=== PATIENT | male | born 1985 | race African-American/Black ===

== ENCOUNTER 2023-12-07 10:44 | Inpatient (IN) | payer BC, OTHER, SELFPAY ==
[2023-12-07 10:51] VITALS: BP 122/76; PULSE 125; RESP 18; TEMP 36.8; O2SAT 91; BMI 25.0
--- NOTE | 2023-12-07 10:56 | XR_ITS ---
Examination: PA single view TECHNIQUE: Upright PA single view Exam date and time: December 07, 2023 1121 hours Comparison August 25, 2021 INDICATIONS: Chest pain today. FINDINGS: Normal heart size No pneumonia or pulmonary edema The osseous structures are intact IMPRESSION: No pneumonia or pulmonary edema
--- NOTE | 2023-12-07 10:58 | PD.EDRME ---
Rapid Medical Screening Exam [facility] Arrival date/time: 12/07/23 10:44 38-year-old male with past medical history of peritoneal dialysis, hypertension, and diabetes presents to the emergency department complaining of abdominal pain for 4 days. Chief Complaint: Abdominal Pain Vital signs: Vital Signs Temperature 98.3 F 12/07/23 10:51 Pulse Rate 125 H 12/07/23 10:51 Respiratory Rate 18 12/07/23 10:51 Blood Pressure 122/76 12/07/23 10:51 Pulse Oximetry (%) 91 L 12/07/23 10:51 Oxygen Delivery Method Room Air 12/07/23 10:51
--- NOTE | 2023-12-07 11:13 | PD.EDABDPN ---
ED Abdominal Pain RME/HPI General Chief Complaint: Abdominal Pain Stated complaint: Dialysis pt., abdominal pain, constipated Time seen by provider: 12/07/23 11:07 Arrival date/time: 12/07/23 10:44 RME / HPI RME / HPI narrative: 12/07/23 10:44 38-year-old male with past medical history of peritoneal dialysis, hypertension, and diabetes presents to the emergency department complaining of abdominal pain for [address] MONTES MAIN ED EVALUATION: 38 year old male with history of ESRD on peritoneal dialysis, type 2 diabetes on insulin, hypertension, hyperlipidemia, GERD presents to the ED for complaint of abdominal pain beginning 4 days ago and progressively worsening. Describes pain as sharp stabbing in sensation that is located throughout, rating as severe. Accompanied by constipation also beginning 4 days ago. Also reports in the last 4 days he has had no fluid output while doing his peritoneal dialysis. Denies fevers, chills, chest pain, cough, shortness of breath, or urinary symptoms. Related Data Home Medications ?Medication ?Instructions ?Recorded ?Confirmed atorvastatin 20 mg tablet 20 mg PO QDAY 08/25/21 08/04/23 vitamin B complex-vitamin C-folic 1 tab PO QDAY 08/25/21 08/04/23 acid 0.8 mg tablet (Nephro-Charly) allopurinol 300 mg tablet 300 mg PO QDAY 08/04/23 08/04/23 ergocalciferol (vitamin D2) 1,250 1,250 mcg PO QWEEK 08/04/23 08/04/23 mcg (50,000 unit) capsule semaglutide 0.25 mg or 0.5 mg (2 0.5 mg subcut QWEEK 08/04/23 08/04/23 mg/3 mL) subcutaneous pen injector (Ozempic) Previous Rx's ?Medication ?Instructions ?Recorded nifedipine 60 mg tablet,extended 60 mg PO QDAY #30 tabs 03/16/20 release benazepril 10 mg tablet 10 mg PO QDAY #30 tabs 08/11/23 blood-glucose meter,continuous #1 ea 08/11/23 (FreeStyle Wei 3 Marion) blood-glucose sensor (FreeStyle #2 ea 08/11/23 Wei 3 Sensor device) carvedilol 12.5 mg tablet 12.5 mg PO BID #60 tabs 08/11/23 hydralazine 50 mg tablet 50 mg PO TID #90 tabs 08/11/23 insulin degludec 100 unit/mL (3 25 unit (0.25 mL) subcut QPM #15 mL 08/11/23 mL) subcutaneous pen (Tresiba FlexTouch U-100 insulin) pen needle, diabetic 29 gauge x #100 ea 08/11/23/ (Pen Needle) semaglutide 0.25 mg or 0.5 mg (2 0.25 mg (0.368 mL) subcut QWEEK #3 08/11/23 mg/3 mL) subcutaneous pen injector mL (Ozempic) Allergies Allergy/AdvReac Type Severity Reaction Status Date / Time No Known Allergies Allergy Verified 08/04/23 17:52 Review of Systems Review of Systems Narrative Review of Systems: Constitutional: DENIES; Fevers Eyes: DENIES; Loss of vision Head/Ear/Nose: DENIES; Loss of hearing Throat: DENIES; Dysphagia Cardiovascular: DENIES; Chest pain, dyspnea or syncope Respiratory: DENIES; Shortness of breath Gastrointestinal: SEE HPI +abd pain, constipation, no fluid output from peritoneal dialysis. DENIES; Rectal bleeding or melena. Genitourinary: DENIES; Dysuria (painful or difficult urination) Musculoskeletal: DENIES; Arthralgia (pain in a joint),; Skin: DENIES; Rash Neurological: DENIES; Loss of function or movement Psychiatric: DENIES; recent major life stressor, emotional problem, illicit drug use or abuse Endocrinology: DENIES; Weight change Hematologic/Lymphatic: DENIES; Abnormal bruising Allergic/Immunologic: DENIES; Urticaria (hives) Past Medical History Past Medical History NEUROLOGIC: Positive Migraine CARDIAC: Positive Cardiac Disorders and Hypertension RESPIRATORY: Positive Asthma and Pneumonia GENITOURINARY: Positive Renal Disease (PD) ENDOCRINE: Positive Endocrine Disorders and Diabetes Mellitus Type 2 PSYCHO/SOCIAL: Positive Depression and Anxiety OTHER HISTORY: Positive Chicken Pox Family History FAMILY HISTORY: Positive Family Respiratory Disorders, Family Cardiac Disorders and Family Cancer Surgical History SURGICAL: Positive Abdominal Surgery (peritoneal dialysis cath) Social History SMOKING STATUS: Never smoker SECOND HAND EXPOSURE: No SUBSTANCE USE: does not use ED Exam Narrative Physical exam: Physical Exam: General: The vital signs were reviewed. The patient is non-toxic, in no apparent distress and appears healthy with a patent airway, no respiratory distress and has no apparent circulatory problems. Head & Scalp: Normocephalic, atraumatic. Face: Appears normal and is without lesions, deformity. Ears: Left external pinna appears normal. Right external pinna appears normal. Eyes: The sclera is anicteric. No obvious photophobia. The Left and Right Orbit/Lid/Conjunctiva appears normal without swelling, discoloration or injection. Nose: The nose is without deformity, discharge or tenderness; Throat: Appears normal. The mucous membranes are pink and moist without exudates, redness or mass seen. The tongue appears normal. Neck: The neck is supple and no apparent mass or adenopathy. Chest: The chest wall is normal in size and symmetry and has no chest wall tenderness or crepitus. The patient displays normal ventilator effort without retractions, accessory muscle use and has adequate air movement bilaterally with no wheezes and no rales. Cardiovascular: Regular rate and rhythm; No murmurs, rubs, or gallops; Gastrointestinal: The abdomen appears normal. No obvious hernias or mass. The abdomen is exquisitely tender and has diffuse tenderness consistent with acute peritonitis. There is guarding. Bowel sounds are present and normal sounding. No CVA tenderness. Genitourinary: Back/Spine: Normal inspection nontender Extremities/Musculoskeletal/lymphatic: The bilateral upper and lower extremities are warm. There is no evidence of arterial insufficiency. There is no evidence of venous insufficiency/edema. The patient spontaneously moves bilateral upper and lower extremities with no pain and no limitation of movement. There is no apparent, injury or trauma. Skin: The skin is warm, dry and intact. No rashes. No petechia. No purpura. No abnormal bruising. The color is appropriate with no cyanosis. Mental status/Psychiatric: Mental status is appropriate for age. The patient has no apparent delusions, visual hallucinations, no apparent audible hallucinations. The patient has no apparent suicidal thoughts/ideation and no apparent homicidal thoughts/ideation. Neurological: The patient is awake, alert, interactive, cordial, cooperative and is oriented to name and situation. The patient follows commands and answers historical question with no impairment. There is no visual disturbance apparent. The pupils are equal and reactive bilaterally with normal eye movements and no diplopia The bilateral upper and lower extremities have normal strength, normal range of motion and normal functioning. The gait, station and balance appear to be baseline with no acute change Course Quality Measures none Orders Category Date Time Status Eye Glass Frame Polisher Q4H START 00 Care 12/07/23 10:57 Active EKG (ED ONLY) *Do not use* NOW Care 12/07/23 10:56 Completed EKG (ED Only) Stat Exams 12/07/23 10:56 Ordered XR chest 2V Stat Exams 12/07/23 10:56 Completed BNP [B-Type Natriuretic Peptide] Stat Lab 12/07/23 11:30 Completed Blood Culture (Lab) Stat Lab 12/07/23 11:32 Received Body Fld Culture & Gram Stain Stat Lab 12/07/23 12:50 Ordered CBC Stat Lab 12/07/23 11:30 Completed Comprehensive Metabolic Panel Stat Lab 12/07/23 11:30 Completed Lactate (Lactic Acid) Stat Lab 12/07/23 11:30 Completed Magnesium Stat Lab 12/07/23 11:30 Completed PT [Prothrombin Time with INR] Stat Lab 12/07/23 11:30 Completed PTT [Partial Thromboplastin Time] Stat Lab 12/07/23 11:30 Completed Peritoneal Cell Cnt/Diff Stat Lab 12/07/23 12:50 Ordered Peritoneal Dialysate Culture Stat Lab 12/07/23 12:50 Ordered Procalcitonin Stat Lab 12/07/23 11:30 Completed Troponin I Stat Lab 12/07/23 11:30 Completed Urinalysis, C/S if Indicated Stat Lab 12/07/23 10:56 Ordered Piper/Tazo 3.375 gm [Zosyn] Med 12/07/23 11:14 Discontinued 3.375 gm in 50 ml IV X1 Vancomycin Inj 1,000 mg Med 12/07/23 11:15 Discontinued Sodium Chloride 0.9% 250 ml [Ns] 250 ml IV X1 Oxygen Delivery NOW RT 12/07/23 10:57 Active Vital Signs Vital signs: Vital Signs Temperature 98.3 F 12/07/23 10:51 Pulse Rate 125 H 12/07/23 10:51 Respiratory Rate 18 12/07/23 10:51 Blood Pressure 122/76 12/07/23 10:51 Pulse Oximetry (%) 91 L 12/07/23 10:51 Oxygen Delivery Method Room Air 12/07/23 10:51 Pulse ox is 91% on room air which is low. Abdominal Pain MDM MDM Narrative MDM Narrative:: IBeverly, am scribing for and in the presence of Dr. Montes. Patient clinically presents with tachycardia and obvious acute bacterial peritonitis. Dr Membreno was called and will be admitting this patient. Because of the obvious clinical presentation Vanco and Zosyn were ordered early. Dr Membreno came by later and ordered intraperitoneal antibiotics. Medical workup came back CBC with a white count of 10.5 hemoglobin 13.1 sodium 134 potassium 4.4 chloride 105 CO2 21.4 creatinine 7.8 BUN 44 consistent with chronic renal failure. Glucose was 240 hemoglobin A1c of 6.3 lactic acid 0.9. Transaminases were negative total bilirubin was 0.3. Troponin was negative BNP was negative no urine was collected he does produce urine but was unable to be collected so far. Dr Membreno came back and saw this patient and ordered. Intraperitoneal antibiotics. Patient is admitted to Dr. Hernandez. Vital signs been stable while in the ER and patient appears to be fairly comfortable Patient data External records reviewed:: [facility] previous records (I reviewed admission from 08/04/2023 through 08/14/2023 ) Clinical information provided by:: patient Social determinants that could affect healthcare access:: none Patient has the following chronic illnesses:: ESRD on peritoneal dialysis, type 2 diabetes on insulin, hypertension, hyperlipidemia, GERD How is presenting disease/condition affected by chronic disease/condition?: exacerbated by Evaluation data The following diagnostics were reviewed and interpreted by me:: lab results, radiology exam(s) and EKG tracing(s) (Sinus tachycardia, rate 114, motion artifact, no STEMI. ) Lab and/or radiology exams considered but not ordered:: None Interpretation Summary: Ordering Physician: Vito Bellamy (FNP) Date of Service: 12/07/23 Procedure(s): XR chest 2V Accession Number(s): [id number] cc: Cheko Geller MD; Vito Bellamy (FNP)~ Examination: PA single view TECHNIQUE: Upright PA single view Exam date and time: December 07, 2023 1121 hours Comparison August 25, 2021 INDICATIONS: Chest pain today. FINDINGS: Normal heart size No pneumonia or pulmonary edema The osseous structures are intact IMPRESSION: No pneumonia or pulmonary edema Dictated By: Cheko Geller MD Signed By: <Electronically signed by Cheko Geller MD in OV> 10/31/24 1142 Medications / Prescriptions Medications or Prescriptions considered but not ordered:: None Medication administrations:: Medication Administration History Acetaminophen (Acetaminophen 325 Mg Tablet) 650 mg PO Q6H PRN PRN Reason: Fever >100.4 or mild pain Stop: 01/06/24 13:23 Dextrose (Dextrose 50%-Water Inj 50 Ml Syringe) 25 ml IV Q15MIN PRN PRN Reason: BG 50-70 responsive npo pt Stop: 01/06/24 13:28 Dextrose (Dextrose 50%-Water Inj 50 Ml Syringe) 50 ml IV Q15MIN PRN PRN Reason: BG <50 OR BG <70 & pt unresponsive Stop: 01/06/24 13:28 Fluconazole (Fluconazole 100 Mg Tablet) 200 mg PO Q48H JANET Stop: 12/14/23 13:44 Last Admin: 12/07/23 14:59 Dose: 200 mg Documented By: OMAR Hydromorphone HCl (Hydromorphone Inj 2 Mg/Ml Vial) 0.5 mg IVP Q3H PRN PRN Reason: BREAKTHROUGH PAIN (SEVERE) Stop: 12/12/23 13:23 Ceftriaxone Sodium/Dextrose (Rocephin/D5w 1gm Iv Premix) 50 mls @ 100 mls/hr IV QDAY [facility] Stop: 12/14/23 13:42 Last Admin: 12/07/23 15:00 Dose: 100 mls/hr Documented By: OMAR Insulin Human Regular (Insulin Hum Regular 1 Unit/0.01 Ml (Per Unit)) 0 unit SC [facility]; Protocol Stop: 01/06/24 16:59 Ondansetron HCl (Ondansetron Inj 2 Mg/Ml Inj 2 Ml) 4 mg IV Q6H PRN; Protocol PRN Reason: NAUSEA OR VOMITING Stop: 01/06/24 13:23 Oxycodone/Acetaminophen (Oxycodone/Apap 5/325 Tablet) 1 tab PO Q6H PRN PRN Reason: PAIN SCALE 4-10(Mod-Sev Stop: 12/12/23 13:23 Pantoprazole Sodium (Pantoprazole 40 Mg Tablet) 40 mg PO QDAY JANET Stop: 01/07/24 08:59 Pharmacy Consult (Pharmacy To Dose Vancomycin) 1 each IV QDAY JANET Stop: 01/07/24 08:59 Sennosides (Senna Tablet) 1 tab PO BID PRN; Protocol PRN Reason: CONSTIPATION Stop: 01/06/24 13:23 Discontinued Medications Piperacillin/Tazobactam/Dextrose (Zosyn) 3.375 gm in 50 mls @ 100 mls/hr IV X1 ONE Stop: 12/07/23 11:43 Last Infusion: 12/07/23 12:42 Dose: Infused Documented By: Admin: 12/07/23 11:53 Dose: 100 mls/hr Documented By: OMAR Vancomycin HCl 1,000 mg/ (Sodium Chloride) 250 mls @ 150 mls/hr IV X1 ONE Stop: 12/07/23 12:54 Last Infusion: 12/07/23 15:07 Dose: Infused Documented By: Admin: 12/07/23 13:01 Dose: 150 mls/hr Documented By: OMAR None Consultations Consultation(s) initiated? 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 Membreno. Discussed patients PMHx, HPI, ED course, exam findings, labs, and radiology results. She accepts the patient for admission. Time: 11:05 Diagnosis Differential diagnosis abdominal pain: abdominal pain, constipation and other (Peritonitis ) Most likely diagnosis given after review of the tests above:: Acute generalized peritonitis Peritoneal dialysis-associated peritonitis ESRF Diabetes Admission Indicated Admission indicated?: indicated Admission Request Was there a request for admission?: Yes Admission Attestation Admission request attestation: Discussed case with [] from Hospitalist service regarding admission. Discussed patients ED course, exam findings, labs, and radiology results. The Hospitalist [agrees,declines] to accept the patient for admission. Disposition Plan Disposition Plan: Admit Discharge Plan Plan Patient Disposition: Admit Acute Care w/in Hospital Disposition Comment: Dr Membreno Problem List Clinical Impression: Acute generalized peritonitis, Peritoneal dialysis-associated peritonitis, ESRF (end stage renal failure), Diabetes
[2023-12-07 11:47] LABS: Lactate (Lactic Acid) 0.9 mMol/L (0.4-2.0)
[2023-12-07 11:50] LABS: Basophils % (Auto) 0 % (0-2.5); Eosinophils # (Auto) 0.2 Thou/mm3 (0.0-0.5); Eosinophils % (Auto) 2 % (0-10); Hematocrit 40.1 % (41.0-53.0); Hemoglobin 13.1 g/dL (13.5-16.0); Immature Granulocytes % (Auto) 1 % (0-0); Immature Granulocytes Auto 0.05 Thou/mm3 (0.00-0.00); Lymphocytes # (Auto) 1.1 Thou/mm3 (1.0-4.8); Lymphocytes % (Auto) 11 % (10-50); Mean Corpuscular HGB Conc 32.7 g/dl (31.0-37.0); Mean Corpuscular Hemoglobin 27.6 pg (25.0-35.0); Mean Corpuscular Volume 85 fL (80-100); Monocytes # (Auto) 0.6 Thou/mm3 (0.0-0.8); Monocytes % (Auto) 6 % (0-12); Neutrophils # (Auto) 8.5 Thou/mm3 (1.8-7.7); Neutrophils % (Auto) 81 % (37-80); Nucleated Red Blood Cell % 0 /100 WBC (0); Platelet Count 383 Thou/mm3 (140-440); RDW Standard Deviation 40.6 fL (35.1-43.9); Red Blood Count 4.74 Miln/mm3 (4.50-5.90); White Blood Count 10.5 Thou/mm3 (3.8-10.6)
[2023-12-07] MEDS: PIPER/TAZO 3.375 GM 3.375 GM/50 ML BAG IV (11:53)
[2023-12-07 12:01] VITALS: RESP 100
[2023-12-07 12:02] VITALS: BP 127/93; PULSE 114; RESP 17; TEMP 37.1; O2SAT 100
[2023-12-07 12:06] LABS: Partial Thromboplastin Time 34.2 Seconds (22.0-36.0); Prothrombin Time 11.1 Seconds (9.0-12.2)
[2023-12-07 12:08] LABS: B-Type Natriuretic Peptide < 20 pg/mL (0-100)
[2023-12-07 12:20] LABS: Alanine Aminotransferase 8 U/L (10-49); Albumin, Serum 4.5 gm/dL (3.5-5.0); Anion Gap 8 (7-16); Aspartate Amino Transferase 12 U/L (0-34); BUN/Creatinine Ratio 6 Ratio (12-20); Bilirubin,Total 0.3 mg/dL (0.3-1.2); Blood Urea Nitrogen 44 mg/dL (9-23); Calcium 9.6 mg/dL (8.3-10.6); Calcium (Corrected) 9.6 mg/dL (8.5-10.1); Carbon Dioxide 21.4 mMol/L (20.0-31.0); Chloride 105 mMol/L (98-107); Creatinine (Component) 7.8 mg/dL (0.6-1.3); Estimated Creatinine Clearance 12.3 mL/min (>60); Glucose 240 mg/dL (74-106); Magnesium 2.3 mg/dL (1.6-2.6); Osmolality,Calculated 287 (275-295); Potassium 4.4 mMol/L (3.4-5.1); Sodium 134 mMol/L (136-145); Total Protein 8.1 gm/dL (5.7-8.2); Troponin I < 0.002 ng/mL (0.0-0.045); eGFR 8 See Note
[2023-12-07 12:21] LABS: Albumin/Globulin Ratio 1.3 (1.2-2.2); Alkaline Phosphatase 57 U/L (46-116); Globulin 3.6 gm/dL (2.3-3.5); Procalcitonin 5.55 ng/ml (0.0-0.49)
[2023-12-07] MEDS: Vancomycin Inj 1,000 MG in SODIUM CHLORIDE 0.9% 250 ML 250 ML 150 MG IV (13:01)
--- NOTE | 2023-12-07 13:32 | XR_ITS ---
Examination: Abdomen AP single view Technique: AP portable supine abdomen, single view Exam date and time: December 07, 2023 1346 hours INDICATIONS: Constipation abdominal pain today. FINDINGS: Nonobstructive bowel gas pattern. Peritoneal dialysis catheter coiled in the central pelvis No free air The osseous structures are demineralized IMPRESSION: Nonobstructive bowel gas pattern
--- NOTE | 2023-12-07 13:44 | PD.RESHP ---
Documentation for date of: 12/07/23 HPI History of Present Illness Chief complaint: Abdominal pain, PD catheter not draining History of present illness: Mr. Velazquez is a 38-year-old male with a ESRD on peritoneal dialysis, HTN, T2DM, HLD who presented to the ED for abdominal pain that started 4 days ago. Abdominal pain is sharp, 10/10 and is diffuse throughout the abdomen. Additionally, patient reports feeling constipated without any relief with lactulose; endorses decreased oral intake along with acid reflux; chills; and also states the catheter has not been draining over this time. He denies any fever, chest pain, shortness of breath, nausea/vomiting/diarrhea or UTI symptoms. Patient still makes urine. In the ED, vitals were significant for tachycardia. CBC unremarkable. CHEM panel significant for ESRD labs with creatinine 7.8, hyperglycemia 240, normal lactic acid, Pro-Oscar 5.55. UA ordered but not sent. Patient received Vanco and Zosyn, and blood cultures were sent. Additionally ordered peritoneal dialysate culture with cell count. Patient will be admitted for PD related peritonitis. PMH: As above PSH: Peritoneal dialysis catheter insertion SH: Denies alcohol/tobacco/illicit drug use. Lives at home with his FH: Noncontributory NKDA Meds: Nifedipine 60 mg daily, atorvastatin 20 mg at bedtime, allopurinol 300 mg daily, Protonix 20 mg daily, sodium bicarb 650 mg tab daily, Ozempic, lactulose, vitamin D, Suyapa-Charly, carvedilol 25 mg twice daily, benazepril 10 mg daily, Tresiba 25 units every afternoon Review of Systems Review of Systems Systems Reviewed: All systems reviewed, normal except as documented Past Medical History Past Medical History NEUROLOGIC: Positive Migraine CARDIAC: Positive Cardiac Disorders and Hypertension RESPIRATORY: Positive Asthma and Pneumonia GENITOURINARY: Positive Renal Disease (PD) ENDOCRINE: Positive Endocrine Disorders and Diabetes Mellitus Type 2 PSYCHO/SOCIAL: Positive Depression and Anxiety OTHER HISTORY: Positive Chicken Pox Family History FAMILY HISTORY: Positive Family Respiratory Disorders, Family Cardiac Disorders and Family Cancer Surgical History SURGICAL: Positive Abdominal Surgery (peritoneal dialysis cath) Social History SMOKING STATUS: Never smoker SECOND HAND EXPOSURE: No SUBSTANCE USE: does not use Exam Vital Signs Temp Pulse Resp BP Pulse Ox O2 Del Method 98.8 F 114 H 17 127/93 H 100 Room Air 12/07/23 12:02 12/07/23 12:02 12/07/23 12:02 12/07/23 12:02 12/07/23 12:02 12/07/23 12:02 Narrative Exam Gen: AAOx3, in mild distress due to pain HEENT: NCAT, PERRLA, EOMI, MMM, no JVD CVS: normal S1, S2. tachycardic, RR. No MRG Resp: CTA B/L. No rhonchi, rales, crackles or wheezing Abd: soft, significant tenderness with auscultation, non-distended. PD catheter noted. BS diminished MSK: Good ROM in BUE & BLE. No edema or rash. Neuro: CN II-XII grossly intact. Strength 5/5 in BUE & BLE. Results: Labs 12/07/23 11:30 12/07/23 11:30 Labs: Short CBC 12/07/23 Range/Units 11:30 WBC 10.5 (3.8-10.6) Thou/mm3 Hgb 13.1 L (13.5-16.0) g/dL Hct 40.1 L (41.0-53.0) % Plt Count 383 (140-440) Thou/mm3 BMP 12/07/23 11:30 Sodium 134 L Potassium 4.4 Chloride 105 Carbon Dioxide 21.4 BUN 44 H Creatinine 7.8 H* Glucose 240 H Calcium 9.6 Cardiac Enzymes 12/07/23 Range/Units 11:30 Troponin I < 0.002 (0.0-0.045) ng/mL Liver Function 12/07/23 Range/Units 11:30 Total Bilirubin 0.3 (0.3-1.2) mg/dL AST 12 (0-34) U/L ALT 8 L (10-49) U/L Alkaline Phosphatase 57 (46-116) U/L Albumin 4.5 (3.5-5.0) gm/dL Quality Measures Quality Measures VTE prophylaxis (SCDs) Medications Home Medications and Allergies Home Medications ?Medication ?Instructions ?Recorded ?Confirmed ?Type atorvastatin 20 mg tablet 20 mg PO QDAY 08/25/21 08/04/23 History vitamin B complex-vitamin C-folic 1 tab PO QDAY 08/25/21 08/04/23 History acid 0.8 mg tablet (Nephro-Charly) allopurinol 300 mg tablet 300 mg PO QDAY 08/04/23 08/04/23 History ergocalciferol (vitamin D2) 1,250 1,250 mcg PO QWEEK 08/04/23 08/04/23 History mcg (50,000 unit) capsule semaglutide 0.25 mg or 0.5 mg (2 0.5 mg subcut QWEEK 08/04/23 08/04/23 History mg/3 mL) subcutaneous pen injector (Ozempic) Allergies Allergy/AdvReac Type Severity Reaction Status Date / Time No Known Allergies Allergy Verified 08/04/23 17:52 Visit Medications Acetaminophen (Acetaminophen 325 Mg Tablet) 650 mg PO Q6H PRN PRN Reason: Fever >100.4 or mild pain Stop: 01/06/24 13:23 Dextrose (Dextrose 50%-Water Inj 50 Ml Syringe) 25 ml IV Q15MIN PRN PRN Reason: BG 50-70 responsive npo pt Stop: 01/06/24 13:28 Dextrose (Dextrose 50%-Water Inj 50 Ml Syringe) 50 ml IV Q15MIN PRN PRN Reason: BG <50 OR BG <70 & pt unresponsive Stop: 01/06/24 13:28 Fluconazole (Fluconazole 100 Mg Tablet) 200 mg PO Q48H JANET Stop: 12/14/23 13:44 Hydromorphone HCl (Hydromorphone Inj 2 Mg/Ml Vial) 0.5 mg IVP Q3H PRN PRN Reason: BREAKTHROUGH PAIN (SEVERE) Stop: 12/12/23 13:23 Ceftriaxone Sodium/Dextrose (Rocephin/D5w 1gm Iv Premix) 50 mls @ 100 mls/hr IV QDAY JANET Stop: 12/14/23 13:42 Insulin Human Regular (Insulin Hum Regular 1 Unit/0.01 Ml (Per Unit)) 0 unit SC [facility]; Protocol Stop: 01/06/24 16:59 Ondansetron HCl (Ondansetron Inj 2 Mg/Ml Inj 2 Ml) 4 mg IV Q6H PRN; Protocol PRN Reason: NAUSEA OR VOMITING Stop: 01/06/24 13:23 Oxycodone/Acetaminophen (Oxycodone/Apap 5/325 Tablet) 1 tab PO Q6H PRN PRN Reason: PAIN SCALE 4-10(Mod-Sev Stop: 12/12/23 13:23 Pantoprazole Sodium (Pantoprazole 40 Mg Tablet) 40 mg PO QDAY JANET Stop: 01/07/24 08:59 Pharmacy Consult (Pharmacy To Dose Vancomycin) 1 each IV QDAY JANET Stop: 01/07/24 08:59 Sennosides (Senna Tablet) 1 tab PO BID PRN; Protocol PRN Reason: CONSTIPATION Stop: 01/06/24 13:23 Discontinued Medications Piperacillin/Tazobactam/Dextrose (Zosyn) 3.375 gm in 50 mls @ 100 mls/hr IV X1 ONE Stop: 12/07/23 11:43 Last Infusion: 12/07/23 12:42 Dose: Infused Vancomycin HCl 1,000 mg/ (Sodium Chloride) 250 mls @ 150 mls/hr IV X1 ONE Stop: 12/07/23 12:54 Last Admin: 12/07/23 13:01 Dose: 150 mls/hr Assessment & Plan Plan Mr. Velazquez is a 38-year-old male with a ESRD on peritoneal dialysis, HTN, T2DM, HLD who presented to the ED for abdominal pain that started 4 days ago. Abdominal pain is sharp, 10/10 and is diffuse throughout the abdomen. Additionally, patient reports the catheter has not been draining over this time. Patient will be admitted for PD related peritonitis and started on empiric antibiotics. #PD related peritonitis Patient presenting with severe abdominal pain and malfunctioning PD catheter. Meets 1/4 SIRS criteria (tachycardia) with normal LA and elevated Pro-Oscar, although in the setting of renal disease Blood cultures were sent Follow-up MRSA nares Ordered dialysis effluent culture/Gram stain with differential General Surgery consulted, appreciate recommendations Patient received vancomycin and Zosyn while in the ED. Will continue with pharmacy to dose vancomycin for GPC/MRSA coverage, and start Rocephin for gram-negative coverage. Fluconazole 200 mg every 48 hr for antifungal prophylaxis, as per ISPD peritonitis guidelines Tylenol for fevers and mild pain; Percocet for moderate?severe pain; Dilaudid for severe breakthrough pain not responding to Percocet #ESRD on PD CHEM panel significant for creatinine 7.8, consistent with ESRD labs Patient still makes urine, therefore strict I's and O's ordered UA ordered May consider placing temporary dialysis catheter for hemodialysis, if PD catheter remains dysfunctional Will resume Suyapa-Charly, sodium bicarb Avoid nephrotoxic agents; renally dose medications when possible #Constipation Patient tried lactulose with minimal relief. KUB pending read Senna as needed; will consider adding MiraLAX and/or enemas #HTN BP is within normal limits at this time Will continue to monitor vital signs and resume home meds when appropriate Nifedipine 60 mg daily, Coreg 25 mg twice daily, benazepril 10 mg daily #T2DM #Hyperglycemia Blood sugar 240 on CHEM panel A1c 6.3% Ordered SSI, hypoglycemic protocol. Consider adding Lantus if FBG >180 #HLD Will continue home atorvastatin #GERD Will continue Protonix Dispo: Patient admitted to [facility] for PD related peritonitis/malfunctioning PD catheter, on IV antibiotics; pending general surgery recommendations GI PPx: Protonix DVT PPx: SCDs Diet: Renal CODE STATUS: Full code Patient seen and care discussed with my attending Dr. Membreno. Riri Givens MD PGY-3 Attending Provider Attestation/Addendum Patient seen and examined with Dr. Givens. Note reviewed, agree with findings and recommendations. Patient admitted with malfunctioning PD catheter, peritonitis. Unfortunately catheter cannot be flushed or drained. Could not get any fluid for cell count. Empirically started him on IV antibiotics. Dr Fischer was notified for pd catheter repositioning.
[2023-12-07 14:03] LABS: Glucose Estimated Average 134 mg/dL (80-131); Hemoglobin A1C 6.3 % Hgb (4.8-6.0)
[2023-12-07] MEDS: FLUCONAZOLE 100 MG TABLET 200 MG PO (14:59)
[2023-12-07] MEDS: cefTRIAXone/D5w 1gm IV premix 50 ML IV (15:00)
[2023-12-07 16:10] VITALS: PULSE 108; RESP 100; RESP 16
--- NOTE | 2023-12-07 16:19 | PC.SS ---
STEAM AND GAS TURBINES ASSEMBLER met with patient to complete initial assessment. Patient appeared alert and oriented. Patient confirmed demographic information. Patient lives at home with spouse, Ella Velazquez . Patient's spouse, Ella was identified as the patient's medical surrogate decision maker. Patient describes independent with ADL's. Patient's PCP is Dr. Deirdre Membreno. Pharmacy of choice is [facility] in [place]. Patient is type II diabetic. Patient states he is currently receiving dialysis at home with own equipment. Foreign Banknote Teller Trader following is Dr. Membreno. The discharge plan was discussed, and the patient would like to return home once medically cleared. Spouse to assist with transportation home. real estate services coordinator to remain available to address any further needs/concerns. Patient currently pending bed for inpatient admission.
[2023-12-07 16:29] LABS: Collection Type, Urine Clean Catch
[2023-12-07 16:43] LABS: Bacteria,Urine Rare; Bilirubin,Urine Negative (Negative); Blood,Urine Trace (Negative); Clarity,Urine Clear (Clear/Hazy); Color,Urine Lt-Yellow (Lt Yel-Yel); Culture Indicated,Urine Not Indicated; Glucose, Urine 3+ (Negative); Ketones,Urine Negative (Negative); Leukocyte Esterase,Urine Negative (Negative); Nitrite,Urine Negative (Negative); Protein,Urine 2+ (Neg - Trace); RBC,Urine < 1 /hpf (0-3); Specific Gravity,Urine 1.012 (1.001-1.035); Squamous Epithelial Cell,Urine < 1 /hpf (0-5); Urobilinogen,Urine Negative mg/dL (0.0-1.0); WBC,Urine 2 /hpf (0-5)
[2023-12-07 17:41] VITALS: BP 121/80; PULSE 110; RESP 16; TEMP 37.6; O2SAT 100
[2023-12-07] MEDS: VIT B12/Vit C/FA (Nephrovite) TABLET 1 TAB PO (17:51)
[2023-12-07] MEDS: INSULIN HUM REGULAR 1 UNIT/0.01 ML (PER UNIT) SC (17:56)
[2023-12-07] MEDS: ATORVASTATIN CALCIUM 20 MG TABLET PO (20:37)
[2023-12-07] MEDS: HYDROmorphone INJ 2 MG/ML VIAL 0.5 MG IVP (20:38)
[2023-12-07] MEDS: SENNA TABLET 1 TAB PO (20:48)
[2023-12-07] MEDS: PANTOPRAZOLE 40 MG TABLET PO (20:48)
[2023-12-07 21:26] VITALS: BMI 24.4
[2023-12-08] VITALS (13 sets, daily range): BP systolic 99–135; BP diastolic 64–103; PULSE 72–115; RESP 13–20; TEMP 36.4–36.9; O2SAT 93–99
[2023-12-08 06:21] LABS: Basophils % (Auto) 1 % (0-2.5); Eosinophils # (Auto) 0.6 Thou/mm3 (0.0-0.5); Eosinophils % (Auto) 9 % (0-10); Hematocrit 34.1 % (41.0-53.0); Hemoglobin 11.2 g/dL (13.5-16.0); Immature Granulocytes % (Auto) 0 % (0-0); Immature Granulocytes Auto 0.02 Thou/mm3 (0.00-0.00); Lymphocytes # (Auto) 1.4 Thou/mm3 (1.0-4.8); Lymphocytes % (Auto) 23 % (10-50); Mean Corpuscular HGB Conc 32.8 g/dl (31.0-37.0); Mean Corpuscular Hemoglobin 27.7 pg (25.0-35.0); Mean Corpuscular Volume 84 fL (80-100); Monocytes # (Auto) 0.5 Thou/mm3 (0.0-0.8); Monocytes % (Auto) 8 % (0-12); Neutrophils # (Auto) 3.7 Thou/mm3 (1.8-7.7); Neutrophils % (Auto) 60 % (37-80); Nucleated Red Blood Cell % 0 /100 WBC (0); Platelet Count 355 Thou/mm3 (140-440); RDW Standard Deviation 40.6 fL (35.1-43.9); Red Blood Count 4.05 Miln/mm3 (4.50-5.90); White Blood Count 6.3 Thou/mm3 (3.8-10.6)
[2023-12-08 06:42] LABS: Albumin, Serum 3.9 gm/dL (3.5-5.0); Anion Gap 11 (7-16); BUN/Creatinine Ratio 6 Ratio (12-20); Blood Urea Nitrogen 40 mg/dL (9-23); Calcium 8.9 mg/dL (8.3-10.6); Carbon Dioxide 17.4 mMol/L (20.0-31.0); Chloride 105 mMol/L (98-107); Creatinine (Component) 7.1 mg/dL (0.6-1.3); Glucose 126 mg/dL (74-106); Osmolality,Calculated 278 (275-295); Phosphorous 4.4 mg/dL (2.4-5.1); Potassium 3.9 mMol/L (3.4-5.1); Sodium 133 mMol/L (136-145); eGFR 9 See Note
[2023-12-08] MEDS: VIT B12/Vit C/FA (Nephrovite) TABLET 1 TAB PO (09:00)
[2023-12-08] MEDS: PANTOPRAZOLE 40 MG TABLET PO (09:00)
[2023-12-08] MEDS: SODIUM BICARBONATE 650 MG TABLET PO (09:00)
[2023-12-08] MEDS: cefTRIAXone/D5w 1gm IV premix 50 ML IV (09:00)
--- NOTE | 2023-12-08 10:05 | CHAP ---
Patient was visited by the Spiritual Care Volunteer who prayed for them. (Volunteer was in the hospital from 09:30-10:05)
--- NOTE | 2023-12-08 12:30 | ESCONSULT_ITS ---
HPI Consult details Consult date: 12/07/23 Reason for consultation narrative: Malfunctioning peritoneal dialysis catheter Requesting physician: Mao Membreno History of present illness: 38-year-old male with history of hypertension, diabetes, end-stage renal disease on peritoneal dialysis. He underwent placement of peritoneal dialysis catheter in August. His catheter has been working until 4 days ago when it stopped draining. After his peritoneal dialysis catheter stopped draining he started developing abdominal pain and constipation. He denies nausea, vomiting, fever or chills. Review of Systems Constitutional Constitutional: Denies chills and Denies fever(s) Cardiovascular Cardiovascular: Denies chest pain Respiratory Respiratory: Denies cough Gastrointestinal Gastrointestinal: Reports abdominal pain, Reports nausea and Denies vomiting Hematologic/Lymphatic Hematologic/Lymphatic: Denies easy bleeding and Denies easy bruising Past Medical History Surgical History OTHER SURGICAL HX: Peritoneal dialysis catheter placement Meds Home Medications and Allergies Home Medications ?Medication ?Instructions ?Recorded ?Confirmed ?Type atorvastatin 20 mg tablet 20 mg PO QDAY 08/25/21 12/08/23 History vitamin B complex-vitamin C-folic 1 tab PO QDAY 08/25/21 08/04/23 History acid 0.8 mg tablet (Nephro-Charly) allopurinol 300 mg tablet 300 mg PO QDAY 08/04/23 08/04/23 History ergocalciferol (vitamin D2) 1,250 1,250 mcg PO QWEEK 08/04/23 08/04/23 History mcg (50,000 unit) capsule semaglutide 0.25 mg or 0.5 mg (2 0.5 mg subcut QWEEK 08/04/23 12/08/23 History mg/3 mL) subcutaneous pen injector (Ozempic) pantoprazole 20 mg tablet,delayed 20 mg PO DAILY 12/08/23 12/08/23 History release sodium bicarbonate 650 mg tablet 650 mg PO DAILY 12/08/23 12/08/23 History vitamin B complex-vitamin C-folic tab 12/08/23 History acid 0.8 mg tablet (Suyapa-Charly) vitamin B complex-vitamin C-folic tab 12/08/23 History acid 0.8 mg tablet (Suyapa-Charly) Allergies Allergy/AdvReac Type Severity Reaction Status Date / Time No Known Allergies Allergy Verified 08/04/23 17:52 Exam Vital Signs Temp Pulse Resp BP Pulse Ox O2 Del Method 98.0 F 105 H 16 116/77 98 Room Air 12/08/23 08:00 12/08/23 08:00 12/08/23 08:00 12/08/23 08:00 12/08/23 08:00 12/08/23 08:00 Constitutional Constitutional: no acute distress Routine Abdominal Exam Abdominal: Present soft and normoactive bowel sounds; Absent tenderness or distended Comments: Peritoneal dialysis catheter in place and intact without external evidence of infection. There is no evidence of peritonitis at this time Results Results: Laboratory Laboratory results: results reviewed Assessment & Plan Problem List (1) Other mechanical complication of intraperitoneal dialysis catheter, initial encounter: Status: Acute Plan Patient does not exhibit signs of peritonitis at this time. Will plan for l aparoscopy with revision of his peritoneal dialysis catheter. I explained to the patient that if there is evidence of purulent fluid in the abdomen or peritonitis I will remove his peritoneal dialysis catheter. He did not may have to undergo hemodialysis in the interim until his peritoneal infection is cleared and then we will reschedule him for placement of peritoneal dialysis catheter at a later time. The risks, benefits and alternatives to surgery discussed with the patient at length and all his questions answered. He voiced understanding and agreed to proceed with the operation. Every 2 weeks and I am a sincere thanks Dr. Membreno for consulting me and allowing me to evaluate participate in care of this patient.
--- NOTE | 2023-12-08 14:21 | ESPR_ITS ---
Documentation for date of: 12/08/23 Subjective Subjective Interval history: Chief complaint: Abdominal pain, PD catheter not draining History of present illness: Mr. Velazquez is a 38-year-old male with a ESRD on peritoneal dialysis, HTN, T2DM, HLD who presented to the ED for abdominal pain that started 4 days ago. Abdominal pain is sharp, 10/10 and is diffuse throughout the abdomen. Additionally, patient reports feeling constipated without any relief with lactulose; endorses decreased oral intake along with acid reflux; chills; and also states the catheter has not been draining over this time. He denies any fever, chest pain, shortness of breath, nausea/vomiting/diarrhea or UTI symptoms. Patient still makes urine. In the ED, vitals were significant for tachycardia. CBC unremarkable. CHEM panel significant for ESRD labs with creatinine 7.8, hyperglycemia 240, normal lactic acid, Pro-Oscar 5.55. UA ordered but not sent. Patient received Vanco and Zosyn, and blood cultures were sent. Additionally ordered peritoneal dialysate culture with cell count. Patient will be admitted for PD related peritonitis. PMH: As above PSH: Peritoneal dialysis catheter insertion SH: Denies alcohol/tobacco/illicit drug use. Lives at home with his FH: Noncontributory NKDA Meds: Nifedipine 60 mg daily, atorvastatin 20 mg at bedtime, allopurinol 300 mg daily, Protonix 20 mg daily, sodium bicarb 650 mg tab daily, Ozempic, lactulose, vitamin D, Suyapa-Charly, carvedilol 25 mg twice daily, benazepril 10 mg daily, Tresiba 25 units every afternoon 12/07: Patient seen resting comfortably in bed. Labs significant for BUN 40 creatinine 7.1, both improved from yesterday. Dr Fischer to fix patient's peritoneal dialysis cath today. Will resume peritoneal dialysis afterwards. Will send PD fluid for cell count. Exam Vital Signs Temp Pulse Resp BP Pulse Ox O2 Del Method 98.5 F 72 16 115/84 93 L Room Air 12/08/23 12:00 12/08/23 12:00 12/08/23 12:00 12/08/23 12:00 12/08/23 12:00 12/08/23 12:00 Narrative Exam PE: Gen: Well-developed and well-nourished. HEENT: NCAT, PERRLA, EOMI, MMM, anicteric conjunctivae. CVS: normal S1 and S2. RRR. No M/R/G. Resp: CTA B/L. No rhonchi, rales, crackles or wheezing. Abd: soft, non-tender, non-distended. MSK: Good ROM in BUE & BLE. No edema or rash. Neuro: CN II-XII grossly intact. Strength 5/5 in BUE & BLE. Alert and oriented x3. Psych: appropriate mood and affect. Objective Labs 12/08/23 05:32 12/08/23 05:32 Labs: Laboratory Results - last 24 hr 12/07/23 12/08/23 16:07 05:32 WBC 6.3 RBC 4.05 L Hgb 11.2 L Hct 34.1 L MCV 84 MCH 27.7 MCHC 32.8 RDW Std Deviation 40.6 Plt Count 355 Neut % (Auto) 60 Lymph % (Auto) 23 [place] % (Auto) 8 Eos % (Auto) 9 Baso % (Auto) 1 Neut # (Auto) 3.7 Lymph # (Auto) 1.4 [place] # (Auto) 0.5 Eos # (Auto) 0.6 H Baso # (Auto) 0.0 Immature Gran # (Auto) 0.02 H Absolute Nucleated RBC 0.00 Immature Gran % 0 Nucleated RBC % 0 Sodium 133 L Potassium 3.9 D Chloride 105 Carbon Dioxide 17.4 L Anion Gap 11 BUN 40 H Creatinine 7.1 H* D Estim Creat Clear Calc 14.0 L eGFR 9 L* BUN/Creatinine Ratio 6 L Glucose 126 H D Calculated Osmolality 278 Calcium 8.9 Corrected Calcium 9.0 Phosphorus 4.4 Albumin 3.9 D Ur Collection Type Clean Catch Urine Color Lt-Yellow Urine Clarity Clear Urine pH 6.0 Ur Specific [place] 1.012 Urine Protein 2+ A Urine Glucose (UA) 3+ A Urine Ketones Negative Urine Blood Trace Urine Nitrite Negative Urine Bilirubin Negative Urine Urobilinogen (Auto) Negative Ur Leukocyte Esterase Negative Urine RBC < 1 Urine WBC 2 Ur Squamous Epith Cells < 1 Urine Bacteria Rare Ur Culture Indicated? Not Indicated Quality Measures Quality Measures VTE prophylaxis (SCDs) Assessment & Plan Assessment Current Active Medications: Generic Name Dose Route Start Last Admin Trade Name Freq PRN Reason Stop Dose Admin Acetaminophen 650 mg 12/07/23 13:24 Acetaminophen 325 Mg Tablet PO 01/06/24 13:23 Q6H PRN Fever >100.4 or mild pain Atorvastatin Calcium 20 mg 12/07/23 21:00 12/07/23 20:37 Atorvastatin Calcium 20 Mg Tablet PO 01/06/24 20:59 20 mg HS JANET Administration Dextrose 25 ml 12/07/23 13:29 Dextrose 50%-Water Inj 50 Ml Syringe IV 01/06/24 13:28 Q15MIN PRN BG 50-70 responsive npo pt Dextrose 50 ml 12/07/23 13:29 Dextrose 50%-Water Inj 50 Ml Syringe IV 01/06/24 13:28 Q15MIN PRN BG <50 OR BG <70 & pt unresponsive Fentanyl Citrate 50 mcg 12/08/23 14:18 Fentanyl Cit Inj 50 Mcg/Ml Amp 2ml IV 12/08/23 16:19 Q5MIN PRN PAIN SCALE 4-10(Mod-Sev Fluconazole 200 mg 12/07/23 13:45 12/07/23 14:59 Fluconazole 100 Mg Tablet PO 12/14/23 13:44 200 mg Q48H JANET Administration Hydralazine HCl 5 mg 12/08/23 14:18 Hydralazine Inj 20 Mg/Ml Vial IV 12/08/23 16:18 Q20MIN PRN SEE COMMENTS Hydromorphone HCl 0.5 mg 12/07/23 13:24 12/07/23 20:38 Hydromorphone Inj 2 Mg/Ml Vial IVP 12/12/23 13:23 0.5 mg Q3H PRN Administration BREAKTHROUGH PAIN (SEVERE) Ceftriaxone Sodium/Dextrose 50 mls @ 100 mls/hr 12/07/23 13:43 12/08/23 09:00 Rocephin/D5w 1gm Iv Premix IV 12/14/23 13:42 100 mls/hr QDAY JANET Administration Insulin Human Regular 0 unit 12/07/23 17:00 12/08/23 11:20 Insulin Hum Regular 1 Unit/0.01 Ml (Per Unit) SC 01/06/24 16:[address] [facility] Protocol Meperidine HCl 12.5 mg 12/08/23 14:18 Meperidine Inj 50 Mg/Ml Vial IV 12/13/23 14:17 Q5M PRN SHIVERING Midazolam HCl 1 mg 12/08/23 14:18 Midazolam Inj 1 Mg/Ml Vial 2 Ml IV 12/09/23 14:17 Q5MIN PRN ANXIETY Ondansetron HCl 4 mg 12/07/23 13:24 Ondansetron Inj 2 Mg/Ml Inj 2 Ml IV 01/06/24 13:23 Q6H PRN NAUSEA OR VOMITING Protocol Oxycodone/Acetaminophen 1 tab 12/07/23 13:24 Oxycodone/Apap 5/325 Tablet PO 12/12/23 13:23 Q6H PRN PAIN SCALE 4-10(Mod-Sev Pantoprazole Sodium 40 mg 12/08/23 09:00 12/08/23 09:00 Pantoprazole 40 Mg Tablet PO 01/07/24 08:59 40 mg QDAY JANET Administration Pharmacy Consult 1 each 12/08/23 09:25 Pharmacy To Dose Vancomycin IV 01/07/24 09:24 QDAY PRN CONSULT Sennosides 1 tab 12/07/23 13:24 12/07/23 20:48 Senna Tablet PO 01/06/24 13:23 1 tab BID PRN Administration CONSTIPATION Protocol Sodium Bicarbonate 650 mg 12/08/23 09:00 12/08/23 09:00 Sodium Bicarbonate 650 Mg Tablet PO 01/07/24 08:59 650 mg QDAY JANET Administration Vitamin B Complex/Vit C/Folic Acid 1 tab 12/07/23 15:45 12/08/23 09:00 Vit B12/Vit C/Fa (Nephrovite) Tablet PO 01/06/24 15:44 1 tab QDAY JANET Administration Plan Mr. Velazquez is a 38-year-old male with a ESRD on peritoneal dialysis, HTN, T2DM, HLD who presented to the ED for abdominal pain that started 4 days ago. Abdominal pain is sharp, 10/10 and is diffuse throughout the abdomen. Additionally, patient reports the catheter has not been draining over this time. Patient will be admitted for PD related peritonitis and started on empiric antibiotics. #??? PD related peritonitis Patient presenting with severe abdominal pain and malfunctioning PD catheter. Meets 1/4 SIRS criteria (tachycardia) with normal LA and elevated Pro-Oscar, although in the setting of renal disease Blood cultures were sent Follow-up MRSA nares Ordered dialysis effluent culture/Gram stain with differential General Surgery consulted, appreciate recommendations Patient received vancomycin and Zosyn while in the ED. Will continue with pharmacy to dose vancomycin for GPC/MRSA coverage, and start Rocephin for gram- negative coverage. Fluconazole 200 mg every 48 hr for antifungal prophylaxis, as per ISPD peritonitis guidelines Tylenol for fevers and mild pain; Percocet for moderate?severe pain; Dilaudid for severe breakthrough pain not responding to Percocet #ESRD on PD//malfunctioning peritoneal dialysis catheter CHEM panel significant for creatinine 7.8, consistent with ESRD labs Patient still makes urine, therefore strict I's and O's ordered UA ordered Will resume Suyapa-Charly, sodium bicarb Avoid nephrotoxic agents; renally dose medications when possible PD cath to be replaced today, resume peritoneal dialysis afterwards Peritoneal fluid cell count with differential #Constipation Patient tried lactulose with minimal relief. KUB pending read Senna as needed; will consider adding MiraLAX and/or enemas #HTN BP is within normal limits at this time Will continue to monitor vital signs and resume home meds when appropriate Nifedipine 60 mg daily, Coreg 25 mg twice daily, benazepril 10 mg daily #T2DM #Hyperglycemia Blood sugar 240 on CHEM panel A1c 6.3% Ordered SSI, hypoglycemic protocol. Consider adding Lantus if FBG >180 #HLD Will continue home atorvastatin #GERD Will continue Protonix Dispo: Patient admitted to [facility] for PD related peritonitis/malfunctioning PD catheter, on IV antibiotics; will have PD cath replaced today GI PPx: Protonix DVT PPx: SCDs Diet: Renal CODE STATUS: Full code Plan of care discussed with my attending Dr. Membreno. Kirit Olmstead MD PGY-1 Attending Provider Attestation/Addendum Patient seen and examined with resident physician Dr. Olmstead. Note reviewed, agree with findings and recommendations. Today abdominal pain much better. White count normal. Dr Fischer did not think patient has PD peritonitis. He changed the PD catheter and peritoneal fluid was clear. He sent PD fluid peritoneal fluid for cell count. In the interim we will continue with antibiotics. CCPD 4 exchanges 1.5% 2 L with a dry abdomen tonight-
--- NOTE | 2023-12-08 14:30 | PD.SUROPNT ---
Date of Procedure 12/08/23 Pre Op Diagnosis Mechanical complication of peritoneal dialysis catheter Post Op Diagnosis Mechanical complication of peritoneal dialysis catheter Procedure Laparoscopy with revision of peritoneal dialysis catheter Findings There was no evidence of peritonitis or purulent fluid. The catheter was wrapped around with loops of small bowel and there were obstructive intraluminal material at the distal tip of the peritoneal dialysis catheter. Procedure Description Patient brought into the operating room in supine position. After administration of general tracheal anesthesia, patient's abdomen and his peritoneal dialysis catheter were prepped and draped in standard surgical manner. A Veress needle was inserted through the umbilicus and pneumoperitoneum was obtained up to 15 mmHg. The Veress needle was removed and a 5 mm right upper quadrant incision was made. 5 mm trocar was placed and laparoscopic camera was inserted. Under direct visualization a laparoscopic camera a 5 mm trocar was placed in left lower quadrant and additional 5 mm trocar was placed in left epigastrium. The abdomen was inspected there was some fluid throughout the abdomen that did not appear to be purulent and there was no evidence of peritonitis. The fluid was aspirated and sent for culture and sensitivity. The remainder of the abdomen was washed and irrigated. The catheter was identified and noted to be wrapped around the loop of small bowel. It was from the loop of small bowel. There were some evidence of obstructive intraluminal material at the distal end of the peritoneal dialysis catheter. A guidewire was placed at the external part of the catheter and advanced until all the obstructive intraluminal materials were removed. The catheter was then flushed with heparinized saline. The catheter was positioned in the pelvis. Using Endo closure device a suture was placed in suprapubic region around the catheter to hold the catheter in place and prevent potential displacement. Hemostasis was adequate and satisfactory. Instrument and laparoscopic camera removed, pneumoperitoneum was evacuated and trocars removed. Incisions closed with 4-0 Monocryl in subcuticular fashion. Dermabond applied. Patient tolerated procedure well. He was extubated, breathing spontaneously and without difficulty and was transferred to postanesthesia care in stable condition. Instruments, needles and sponge counts were reported to be correct x 2. Anesthesia GETA and local Pathology / specimen Other (Peritoneal fluid for culture and sensitivity) Estimated Blood Loss 2 Condition Stable Disposition PACU Surgeon Dane Fischer MD Surgical Staff Operation Date: 12/08/23 15:00 Case Staff Anesthesiologist: Krishan Carreno RNhotel valet attendant: Maryjane Clarke
--- NOTE | 2023-12-08 14:36 | SUR.PHASEI ---
1435 Patient arrived to recovery resting comfortably in [facility], drowsy and talking with staff, on oxygen 4L via nasal cannula, breathing unlabored, vital signs stable, denies pain, dressing intact to abdomen; dermabond x4 and peritoneal catheter: drain sponge, medipore tape, no bleeding noted, lung sounds clear upon auscultation, bilateral radial pulses present when palpated, report received from Brad HARRIS and Dr. Carreno
--- NOTE | 2023-12-08 15:17 | SUR.PHASEI ---
1514 Report given to Ashley HARRIS, patient meets discharge criteria from recovery, awake and alert, breathing unlabored, vital signs stable, denies pain, states, It's just sore , patient eating ice chips, tolerating well 1517 Patient transported via gurney to room 377 without incident, patient at bedside awaiting for patient, patient able to ambulate from rcamas to bed with stand by assist from this scientific technical writer, Jessica HARRIS promptly in patient room, patient sitting comfortably in bed with call light in reach when this scientific technical writer left patients room
[2023-12-08] MEDS: oxyCODONE/APAP 5/325 TABLET 1 TAB PO (16:28)
[2023-12-08] MEDS: INSULIN HUM REGULAR 1 UNIT/0.01 ML (PER UNIT) SC ×2 (17:34→21:17)
--- NOTE | 2023-12-08 19:20 | PC.NURSE ---
SERG,DIALYSIS NURSE CONTACTED THROUGH PHONE THAT PATIENT PERITONEAL DIALYSIS IS BEEPING SINCE DAY SHIFT.ESRG INSTRUCTED TO PRESS STOPPED AND PUSH ARROW DOWN AND PRESS STOPPED AND GO.THEN TURN OFF.EXPLAINED TO PATIENT THAT IT NEEDS TO TURN OFF.DIALYSIS NURSE PROMISED TO COME IN AM.PATIENT VERBALIZES UNDERSTANDING.
[2023-12-08] MEDS: DOCUSATE SOD 100 MG CAPSULE PO (20:16)
[2023-12-08] MEDS: ATORVASTATIN CALCIUM 20 MG TABLET PO (20:16)
[2023-12-08] MEDS: NA SU/NAHCO3/KC/PEG (Golytely) 4,000 ML BTL 2000 ML PO (20:56)
[2023-12-09] VITALS: BP 133/103; PULSE 107; RESP 18; TEMP 36.8; O2SAT 99
[2023-12-09 00:19] VITALS: PULSE 100; RESP 16; RESP 93
[2023-12-09 04:00] VITALS: BP 147/97; PULSE 96; RESP 20; TEMP 36.6; O2SAT 99
[2023-12-09 06:07] LABS: Basophils % (Auto) 0 % (0-2.5); Eosinophils % (Auto) 0 % (0-10); Hematocrit 34.7 % (41.0-53.0); Hemoglobin 11.6 g/dL (13.5-16.0); Immature Granulocytes % (Auto) 0 % (0-0); Immature Granulocytes Auto 0.03 Thou/mm3 (0.00-0.00); Lymphocytes # (Auto) 0.7 Thou/mm3 (1.0-4.8); Lymphocytes % (Auto) 8 % (10-50); Mean Corpuscular HGB Conc 33.4 g/dl (31.0-37.0); Mean Corpuscular Hemoglobin 27.8 pg (25.0-35.0); Mean Corpuscular Volume 83 fL (80-100); Monocytes # (Auto) 0.3 Thou/mm3 (0.0-0.8); Monocytes % (Auto) 3 % (0-12); Neutrophils # (Auto) 8.3 Thou/mm3 (1.8-7.7); Neutrophils % (Auto) 89 % (37-80); Nucleated Red Blood Cell % 0 /100 WBC (0); Platelet Count 378 Thou/mm3 (140-440); RDW Standard Deviation 38.8 fL (35.1-43.9); Red Blood Count 4.18 Miln/mm3 (4.50-5.90); White Blood Count 9.3 Thou/mm3 (3.8-10.6)
[2023-12-09 06:43] LABS: Anion Gap 11 (7-16); BUN/Creatinine Ratio 6 Ratio (12-20); Blood Urea Nitrogen 39 mg/dL (9-23); Calcium 8.7 mg/dL (8.3-10.6); Calcium (Corrected) 8.7 mg/dL (8.5-10.1); Carbon Dioxide 17.4 mMol/L (20.0-31.0); Chloride 100 mMol/L (98-107); Creatinine (Component) 6.3 mg/dL (0.6-1.3); Estimated Creatinine Clearance 15.7 mL/min (>60); Glucose 232 mg/dL (74-106); Osmolality,Calculated 273 (275-295); Phosphorous 4.8 mg/dL (2.4-5.1); Potassium 4.5 mMol/L (3.4-5.1); Sodium 128 mMol/L (136-145); eGFR 11 See Note
[2023-12-09 07:54] VITALS: PULSE 97; RESP 17; RESP 95
[2023-12-09 08:00] VITALS: BP 147/66; PULSE 88; RESP 18; TEMP 36.9; O2SAT 99
[2023-12-09] MEDS: SODIUM BICARBONATE 650 MG TABLET PO (08:13)
[2023-12-09] MEDS: INSULIN HUM REGULAR 1 UNIT/0.01 ML (PER UNIT) SC ×2 (08:13→12:28)
[2023-12-09] MEDS: PANTOPRAZOLE 40 MG TABLET PO (08:13)
[2023-12-09] MEDS: VIT B12/Vit C/FA (Nephrovite) TABLET 1 TAB PO (08:13)
[2023-12-09] MEDS: DOCUSATE SOD 100 MG CAPSULE PO (08:13)
[2023-12-09 12:00] VITALS: BP 148/107; PULSE 104; RESP 17; TEMP 37.1; O2SAT 100
--- NOTE | 2023-12-09 13:14 | ESDS_ITS ---
Planned Discharge Date 12/09/23 DS: Providers Provider Date of admission: 12/07/23 13:24 Primary care physician: Mao Membreno MD Admitting Provider: Mao Membreno MD Attending Provider on Admission: Sean Montes MD Consults: 12/07/23 13:43 Consult to General Surgery Stat Comment: PD-related peritonitis, catheter not draining Consulting Provider: Dane Fischer Attending Provider on DC: Kirit Olmstead MD Discharging Provider: Kirit Olmstead MD DS: Diagnosis Problem List Completed Was Problem List Reviewed/Reconciled?: Yes Hospital Course Hospital Course Hospital course: Mr. Velazquez is a 38-year-old male with a ESRD on peritoneal dialysis, HTN, T2DM, HLD who presented to the ED for abdominal pain that started 4 days ago. Abdomi nal pain is sharp, 10/10 and is diffuse throughout the abdomen. Additionally, patient reports feeling constipated without any relief with lactulose; endorses decreased oral intake along with acid reflux; chills; and also states the catheter has not been draining over this time. He denies any fever, chest pain, shortness of breath, nausea/vomiting/diarrhea or UTI symptoms. Patient still makes urine. In the ED, vitals were significant for tachycardia. CBC unremarkable. CHEM panel significant for ESRD labs with creatinine 7.8, hyperglycemia 240, normal lactic acid, Pro-Oscar 5.55. UA ordered but not sent. Patient received Vanco and Zosyn, and blood cultures were sent. Additionally ordered peritoneal dialysate culture with cell count. Patient will be admitted for PD related peritonitis. 12/07: Patient seen resting comfortably in bed. Labs significant for BUN 40 creatinine 7.1, both improved from yesterday. Dr Fischer to fix patient's peritoneal dialysis cath today. Will resume peritoneal dialysis afterwards. Will send PD fluid for cell count. 12/08: PD cath fixed, obstruction was found at distal tip. No signs of peritonitis or purulence intraoperatively. No bacteria seen of GS of peritoneal fluid. Patient medically cleared and stable for discharge. Discharge Planning: Follow up with PCP in 1-2 weeks. Continue PD as before. Do not continue allopurinol. Continue all other meds as before. Diagnoses: #PD related peritonitis - ruled out #PD catheter obstruction - Resolved #ESRD on PD//malfunctioning peritoneal dialysis catheter #Constipation #HTN #T2DM #Hyperglycemia #HLD #GERD Plan of care discussed with attending Dr. Membreno. Kirit Olmstead MD PGY-1 Time Spent with Patient Time attestation: Total time spent providing and/or coordinating discharge services: Exam Vital Signs Temp Pulse Resp BP Pulse Ox O2 Del Method O2 Flow Rate 98.4 F 88 18 147/66 H 99 Room Air 2 12/09/23 08:00 12/09/23 08:00 12/09/23 08:00 12/09/23 08:00 12/09/23 08:00 12/09/23 08:00 12/09/23 04:00 Discharge Plan Plan Patient Disposition: HOME (Self Care) Disposition Comment: Dr Membreno Patient condition on transfer: Stable Care Plan Goals: Follow up with PCP in 1-2 weeks. Continue PD as before. Do not continue allopurinol. Continue all other meds as before. Prescriptions/Referrals Prescriptions/Med Rec: Continued nifedipine 60 mg tablet extended release 60 mg PO QDAY Qty: 30 0RF atorvastatin 20 mg tablet 20 mg PO QDAY Patient Comments: TAKE 1 TABLET BY MOUTH EVERYDAY AT BEDTIME Nephro-Charly 0.8 mg tablet 1 tab PO QDAY Patient Comments: TAKE 1 TABLET BY MOUTH EVERY DAY pantoprazole 20 mg tablet,delayed release (DR/EC) 20 mg PO DAILY Patient Comments: TAKE 1 TABLET BY MOUTH ONCE DAILY AM sodium bicarbonate 650 mg tablet 650 mg PO DAILY Patient Comments: TAKE 1 TABLET BY MOUTH ONCE DAILY allopurinol 300 mg tablet 300 mg PO QDAY Patient Comments: TAKE 1 TABLET BY MOUTH ONCE DAILY ergocalciferol (vitamin D2) 1,250 mcg (50,000 unit) capsule 1,250 mcg PO QWEEK Patient Comments: TAKE 1 CAPSULE BY MOUTH ONCE A WEEK Ozempic 0.25 mg or 0.5 mg (2 mg/3 mL) pen injector 0.5 mg SUBCUT QWEEK Patient Comments: INJECT 0.25 MG SUBCUTANEOUSLY ONCE A WEEK FOR 4 WEEKS THEN 0.5MG ONCE A WEEK insulin degludec [Tresiba FlexTouch U-100] 100 unit/mL (3 mL) insulin pen 25 unit subcut QPM Qty: 15 3RF (DME) pen needle, diabetic [Pen Needle] 29 gauge x 1/2 needle See Rx Instructions .Route Qty: 100 3RF Rx Instructions: As directed (DME) FreeStyle Wei 3 [place] Misc See Rx Instructions .Route Qty: 1 0RF Rx Instructions: As directed (DME) FreeStyle Wei 3 Sensor Device See Rx Instructions .Route Qty: 2 3RF Rx Instructions: As directed Ozempic 0.25 mg or 0.5 mg (2 mg/3 mL) pen injector 0.25 mg subcut QWEEK Qty: 3 3RF Rx Instructions: for 4 weeks benazepril 10 mg tablet 10 mg PO QDAY Qty: 30 3RF carvedilol 12.5 mg tablet 12.5 mg PO BID Qty: 60 3RF Rx Instructions: must administer with a meal/food hydralazine 50 mg tablet 50 mg PO TID Qty: 90 3RF Discontinued Suyapa-Charly 0.8 mg tablet Patient Comments: TAKE 1 TABLET BY MOUTH ONCE DAILY Suyapa-Charly 0.8 mg tablet Patient Comments: TAKE 1 TABLET BY MOUTH ONCE DAILY Referrals: Mao Membreno MD [Primary Care Provider] - Patient/Caregiver Discharge Instructions Discharge Activity: activity as tolerated Other Discharge Activity Instructions:: Follow up with PCP in 1-2 weeks. Continue PD as before. Do not continue allopurinol. Continue all other meds as before. Education Materials: Healthy Meals for Diabetes, Healthy Kidneys, How Your Kidneys Work, PD Catheter Exit Site Care Print Language: Slovenian Activity Restrictions/Additional Instructions: f/u with dr. membreno in 1-2 weeks Stand Alone Forms: Jennifer Award Info., Patient Portal Info Letter Discharge Order Discharge Orders: Discharge (Routine); Ordered 12/09/23 Ordered By: Kirit Olmstead Quality Discharge Quality Measures VTE prophylaxis Attestestation Attestation Patient seen and examined with resident physician Dr. Olmstead. Note reviewed, agree with findings and recommendations. Patient will be discharged home on original cycler prescription.
== END 2023-12-09 13:43 | disposition home or self-care (01) | DRG 907 ==
LOC: SERX 11:50 → SERHOLD 13:47 → S3SX 20:09
PROVIDERS: Student in an Organized Health Care Education/Training Program; Surgery; Admitting Provider Internal Medicine; Emergency Provider Emergency Medicine; PCP Internal Medicine; Visit Provider Emergency Medicine
PROC: 0WHG43Z Insertion of Infusion Device into Peritoneal Cavity, Percutaneous Endoscopic Approach (ICD-10-PCS; CPT 49324; principal; 2023-12-08 14:45)
DX: T85.611A Breakdown (mechanical) of intraperitoneal dialysis catheter, initial encounter (principal); K65.0 Generalized (acute) peritonitis; N18.6 End stage renal disease; I12.0 Hypertensive chronic kidney disease with stage 5 chronic kidney disease or end stage renal disease; E11.22 Type 2 diabetes mellitus with diabetic chronic kidney disease; Z79.4 Long term (current) use of insulin; K21.9 Gastro-esophageal reflux disease without esophagitis; Z99.2 Dependence on renal dialysis; E78.5 Hyperlipidemia, unspecified; K59.00 Constipation, unspecified; Y81.2 Prosthetic and other implants, materials and accessory general- and plastic-surgery devices associated with adverse incidents; E11.65 Type 2 diabetes mellitus with hyperglycemia
CPT/HCPCS: 36415; 71046; 74018; 80053; 80069; 80202; 81001; 83036; 83605; 83735; 83880; 84145; 84484; 85025; 85610; 85730; 87040; 87070; 87075; 87081; 87205; 89051; 96365; 96366; 96367; 96372; 99285; A4649; C1750; J0696; J1100; J1643; J1815; J2405; J2543; J2704; J3010; J3370; J3490; J7050; A9270; J1644; J1805

== ENCOUNTER → 2024-02-13 | Outpatient (CLI) | payer BC, OTHER, SELFPAY ==
--- NOTE | 2024-02-13 16:16 | XR_ITS ---
Examination: Abdomen AP single view Technique: AP portable supine abdomen, single view Exam date and time: February 13, 2024 1638 hours INDICATIONS: Status post placement dialysis catheter September 02, 2023 intraperitoneal FINDINGS: Peritoneal dialysis catheter coiled in the right lower abdomen Nonobstructive bowel gas pattern IMPRESSION: Peritoneal dialysis catheter coiled in the right lower abdomen
== END | disposition home or self-care (01) ==
PROVIDERS: PCP Internal Medicine; Referring Provider Internal Medicine; Visit Provider Internal Medicine
DX: N18.6 End stage renal disease (principal)
CPT/HCPCS: 74018

== ENCOUNTER 2024-02-20 07:32 | Inpatient (IN) | payer BC, OTHER, SELFPAY ==
[2024-02-20 07:33] VITALS: BMI 23.4
--- NOTE | 2024-02-20 07:42 | XR_ITS ---
Examination: PA lateral chest 2 views TECHNIQUE: Upright PA lateral chest 2 views Exam date and time: February 20, 2024 0753 hours INDICATIONS: Coughing chest pain beginning 2 days ago FINDINGS: Normal heart size Lungs are clear. The osseous structures are intact IMPRESSION: No active disease
--- NOTE | 2024-02-20 07:42 | XR_ITS ---
Examination: CT abdomen and pelvis without contrast. Coronal 3-D reconstructions. Sagittal 2-D reconstructions. Date and time of exam:February 20, 2024 0810 hours INDICATIONS: Generalized abdominal pain beginning one week ago, diagnosis renal failure CTDI: vol (mGy): 5.55 DLP: (mGycm): 311 Technique: Axial images of the abdomen have been obtained, 3 mm slice thickness Intravenous contrast material has not been administered. Low dose protocols were performed. One or more of the following dose reduction techniques were used; automated exposure control, adjustment of the mA and/or KV according to patient size, use of iterative reconstruction technique. Findings: Fluid distended stomach No focal liver or splenic lesion No gallstones No pancreatic or adrenal mass No renal or ureteral calculi, no hydronephrosis Multiple abnormally fluid distended small bowel loops Presumed peritoneal dialysis catheter coiled in the right abdomen Normal appendix No prostatomegaly Urinary bladder wall thickened up to 6 mm IMPRESSION: Small bowel obstruction pattern, consider Gastrografin small bowel series follow-up
--- NOTE | 2024-02-20 07:43 | PD.EDRME ---
Rapid Medical Screening Exam [facility] Arrival date/time: 02/20/24 07:32 38-year-old male dialysis patient presents to the emergency department complains of nausea vomiting abdominal pain patient reports he had outpatient imaging which showed he had a clogged PD catheter patient was sent here by Dr. Membreno for further evaluation Chief Complaint: Abdominal Pain
[2024-02-20 07:47] VITALS: BP 107/83; PULSE 123; RESP 18; TEMP 36.4; O2SAT 99
--- NOTE | 2024-02-20 07:54 | EKG_ITS ---
[facility] Test Date: 2024-02-20 Pat Name: DEREK KATZ Department: Room: - Gender: Male Director Of Clinical Applications: : 1985 Requested By: Estuardo Mueller (BRISA) Order Number: [id number] Reading MD: Estuardo Mueller (BRISA) Measurements Intervals [place] Rate: 117 P: CA: QRS: 71 QRSD: 91 T: 85 QT: 281 QTc: 393 Interpretive Statements ATRIAL FLUTTER/TACHYCARDIA WITH RAPID VENTRICULAR RESPONSE LEFT VENTRICULAR HYPERTROPHY AND ST-T CHANGE [VOLTAGE CRITERIA PLUS ST/T ABNORMALITY] Compared to ECG 08/04/2023 16:55:18 ST (T wave) deviation now present Sinus rhythm no longer present Sinus arrhythmia no longer present T-wave abnormality no longer present /store/S0/[id number]/[id number].pdf
[2024-02-20 08:49] LABS: Basophils # (Auto) 0.1 Thou/mm3 (0.0-0.2); Basophils % (Auto) 0 % (0-2.5); Eosinophils # (Auto) 0.1 Thou/mm3 (0.0-0.5); Eosinophils % (Auto) 1 % (0-10); Hemoglobin 15.4 g/dL (13.5-16.0); Immature Granulocytes % (Auto) 1 % (0-0); Lymphocytes # (Auto) 1.6 Thou/mm3 (1.0-4.8); Lymphocytes % (Auto) 12 % (10-50); Mean Corpuscular HGB Conc 32.8 g/dl (31.0-37.0); Mean Corpuscular Hemoglobin 26.7 pg (25.0-35.0); Mean Corpuscular Volume 82 fL (80-100); Monocytes # (Auto) 0.7 Thou/mm3 (0.0-0.8); Monocytes % (Auto) 5 % (0-12); Neutrophils # (Auto) 11.5 Thou/mm3 (1.8-7.7); Neutrophils % (Auto) 82 % (37-80); Nucleated Red Blood Cell % 0 /100 WBC (0); Platelet Count 500 Thou/mm3 (140-440); Red Blood Count 5.77 Miln/mm3 (4.50-5.90); White Blood Count 14.1 Thou/mm3 (3.8-10.6)
[2024-02-20 09:34] LABS: Alanine Aminotransferase 12 U/L (10-49); Albumin/Globulin Ratio 1.3 (1.2-2.2); Alkaline Phosphatase 64 U/L (46-116); Anion Gap 17 (7-16); Aspartate Amino Transferase < 8 U/L (0-34); BUN/Creatinine Ratio 8 Ratio (12-20); Bilirubin,Total 0.3 mg/dL (0.3-1.2); Blood Urea Nitrogen 69 mg/dL (9-23); Calcium 10.7 mg/dL (8.3-10.6); Calcium (Corrected) 10.7 mg/dL (8.5-10.1); Chloride 94 mMol/L (98-107); Creatinine (Component) 8.9 mg/dL (0.6-1.3); Estimated Creatinine Clearance 10.7 mL/min (>60); Globulin 3.9 gm/dL (2.3-3.5); Glucose 221 mg/dL (74-106); Lipase 63 U/L (12-53); Magnesium 2.4 mg/dL (1.6-2.6); Osmolality,Calculated 295 (275-295); Potassium 4.8 mMol/L (3.4-5.1); Sodium 134 mMol/L (136-145); Total Protein 8.9 gm/dL (5.7-8.2); Troponin I < 0.002 ng/mL (0.0-0.045); eGFR 7 See Note
[2024-02-20 12:55] VITALS: BP 140/112; PULSE 108; RESP 19; TEMP 36.5; O2SAT 96
[2024-02-20 13:29] LABS: Collection Type, Urine Clean Catch
--- NOTE | 2024-02-20 13:41 | PD.EDADULT ---
ED General RME/HPI General Chief complaint: Abdominal Pain Stated complaint: ABD. PAIN AND VOMITING Time Seen by Provider: 02/20/24 13:31 Arrival date/time: 02/20/24 07:32 CC: Nausea vomit HPI patient presents to the ER POV for nausea vomiting. The patient is a peritoneal dialysis patient of Dr. Membreno patient is awake alert complaining of mild nausea. Patient denies fever. No other complaints at this time RME / HPI RME / HPI narrative: 02/20/24 07:32 38-year-old male dialysis patient presents to the emergency department complains of nausea vomiting abdominal pain patient reports he had outpatient imaging which showed he had a clogged PD catheter patient was sent here by Dr. Membreno for further evaluation Related Data Home Medications ?Medication ?Instructions ?Recorded ?Confirmed atorvastatin 20 mg tablet 20 mg PO QDAY 08/25/21 12/08/23 vitamin B complex-vitamin C-folic 1 tab PO QDAY 08/25/21 08/04/23 acid 0.8 mg tablet (Nephro-Charly) allopurinol 300 mg tablet 300 mg PO QDAY 08/04/23 08/04/23 ergocalciferol (vitamin D2) 1,250 1,250 mcg PO QWEEK 08/04/23 08/04/23 mcg (50,000 unit) capsule semaglutide 0.25 mg or 0.5 mg (2 0.5 mg subcut QWEEK 08/04/23 12/08/23 mg/3 mL) subcutaneous pen injector (Ozempic) pantoprazole 20 mg tablet,delayed 20 mg PO DAILY 12/08/23 12/08/23 release sodium bicarbonate 650 mg tablet 650 mg PO DAILY 12/08/23 12/08/23 Previous Rx's ?Medication ?Instructions ?Recorded nifedipine 60 mg tablet,extended 60 mg PO QDAY #30 tabs 03/16/20 release benazepril 10 mg tablet 10 mg PO QDAY #30 tabs 08/11/23 blood-glucose meter,continuous #1 ea 08/11/23 (FreeStyle Wei 3 [place]) blood-glucose sensor (FreeStyle #2 ea 08/11/23 Wei 3 Sensor device) carvedilol 12.5 mg tablet 12.5 mg PO BID #60 tabs 08/11/23 hydralazine 50 mg tablet 50 mg PO TID #90 tabs 08/11/23 insulin degludec 100 unit/mL (3 25 unit (0.25 mL) subcut QPM #15 mL 08/11/23 mL) subcutaneous pen (Tresiba FlexTouch U-100 insulin) pen needle, diabetic 29 gauge x #100 ea 08/11/23 1/2 (Pen Needle) semaglutide 0.25 mg or 0.5 mg (2 0.25 mg (0.368 mL) subcut QWEEK #3 08/11/23 mg/3 mL) subcutaneous pen injector mL (Ozempic) Allergies Allergy/AdvReac Type Severity Reaction Status Date / Time No Known Allergies Allergy Verified 02/20/24 07:38 Review of Systems Review of Systems Narrative Review of Systems: GEN: No fever, no chills, no weight loss EYES: No discharge, no visual changes, no pain HEENT: No ear pain, no congestion, no sore throat PULM: No shortness of breath, no cough, no congestion CV: No chest pain, no dyspnea on exertion, no palpitations GI: + nausea, + vomiting, no diarrhea, no pain, no constipation : No frequency, no urgency, no dysuria MUSC/SKEL: No joint pain, no back pain SKIN: No rash PSYCH: No hallucinations, no depression HEME/LYMPH: No easy bleeding or bruising tendencies NEURO: No weakness, no headache Past Medical History Past Medical History NEUROLOGIC: Positive Migraine; Negative Neurological Disorders or Seizures CARDIAC: Positive Cardiac Disorders and Hypertension; Negative Congestive Heart Failure RESPIRATORY: Positive Asthma and Pneumonia; Negative Chronic Obstructive Pulmonary Disease (COPD) GASTROINTESTINAL: Negative Gastrointestinal Disorders GENITOURINARY: Positive Renal Disease; Negative Genitourinary Disorders MUSCULOSKELETAL: Negative Musculoskeletal Disorders ENDOCRINE: Positive Endocrine Disorders and Diabetes Mellitus Type 2; Negative Diabetes Mellitus Type 1 HEMATOLOGIC: Negative Blood Disorders PSYCHO/SOCIAL: Positive Depression and Anxiety OTHER HISTORY: Positive Chicken Pox; Negative Hospitalization, Autoimmune Disease, Down Syndrome, Shingles, Falls, Blood Transfusions, Blood Transfusion Reaction or Anesthesia Reactions Family History FAMILY HISTORY: Positive Family Respiratory Disorders, Family Cardiac Disorders and Family Cancer; Negative Family Psychiatric Problems or Family Gastrointestinal Problems Surgical History SURGICAL: Positive Abdominal Surgery Social History SMOKING STATUS: Never smoker SECOND HAND EXPOSURE: No SUBSTANCE USE: does not use ED Exam Narrative Physical exam: [General: Obese not in cot no acute distress Head normocephalic HEENT: Within acceptable limits Neck is supple nontender Chest equal chest rise nontender to palpation Respiratory: Clear to auscultation no wheezes crackles or rubs CV: Rate rhythm is regular no murmurs rubs or clicks Abdomen soft nontender no masses positive bowel sounds all 4 quadrants peritoneal dialysis catheter site clean dry intact with a dry dressing. Back: No CVA tenderness no spinous process tenderness from cervical spine thoracic and lumbar spine Skin: Other than dialysis site listed above skin is intact no petechiae rash induration ulceration or crepitus Extremities: Moving all extremity against resistance cap refill less than 2 seconds neurosensory intact Neuro: Awake alert oriented x3 Glascow coma 15 no focal deficits] Course Quality Measures none Orders Category Date Time Status Bedside Influenza A&B Antigen Test NOW Care 02/20/24 07:42 Completed EKG (ED ONLY) *Do not use* NOW Care 02/20/24 07:54 Completed Insert IV NOW Care 02/20/24 07:43 Active Consult to General Surgery Stat Cons 02/20/24 13:36 Ordered Consult to Nephrology Stat Cons 02/20/24 13:[address] abdomen pelvis wo con Stat Exams 02/20/24 07:42 Completed EKG (ED Only) Stat Exams 02/20/24 07:54 Draft XR chest 2V Stat Exams 02/20/24 07:42 Completed CBC Stat Lab 02/20/24 08:34 Completed Comprehensive Metabolic Panel Stat Lab 02/20/24 08:34 Completed Lipase Stat Lab 02/20/24 08:34 Completed Mag [Magnesium] Stat Lab 02/20/24 08:34 Completed Troponin I Stat Lab 02/20/24 08:34 Completed UA, C/S IF [Urinalysis, C/S if Indicated] Stat Lab 02/20/24 13:20 Received Ondansetron Inj [Zofran Inj] Med 02/20/24 07:43 Discontinued 4 mg IV X1 ONE Vital Signs Vital signs: Vital Signs Temperature 97.6 F 02/20/24 07:47 Pulse Rate 123 H 02/20/24 07:47 Respiratory Rate 18 02/20/24 07:47 Blood Pressure 107/83 02/20/24 07:47 Pulse Oximetry (%) 99 02/20/24 07:47 Oxygen Delivery Method Room Air 02/20/24 07:47 [facility] Patient data External records reviewed:: [facility] previous records Clinical information provided by:: patient Social determinants that could affect healthcare access:: none Patient has the following chronic illnesses:: ESRD peritoneal dialysis How is presenting disease/condition affected by chronic disease/condition?: exacerbated by Evaluation data The following diagnostics were reviewed and interpreted by me:: lab results and radiology exam(s) Lab and/or radiology exams considered but not ordered:: CBC shows leukocytosis of 14,000 no anemia platelets of 500 CMP shows a sodium 134 potassium of 4.8 chloride of 94 CO2 of 23.0 BUN of 69 creatinine of 8.9 and glucose of 221. Troponin is negative Lipase of 63 CT of the abdomen is suspicious for an SBO no other acute finding. Interpretation Summary: Patient's case discussed with Dr. Fischer who agrees to consult on the patient for attempted surgical unclogging of the PD dialysis catheter. Spoke with Dr. Membreno agrees to accept the patient for admission patient is in agreement with this plan. Medications Medications considered but not ordered:: None Medication administrations:: Medication Administration History Discontinued Medications Ondansetron HCl (Ondansetron Inj 2 Mg/Ml Inj 2 Ml) 4 mg IV X1 ONE; Protocol Stop: 02/20/24 07:44 None Consultations Consultation(s) initiated? (list below): Yes Diagnosis Differential Diagnosis ED Complaint MDM: Clogged dialysis catheter nausea vomiting ESRD worsening Most likely diagnosis given after review of the tests above:: Clogged dialysis catheter nausea vomiting ESRD worsening Admission Indicated Admission indicated?: indicated Explain why admission is indicated or not indicated:: Further medical management Admission Request Was there a request for admission?: No Disposition Plan Disposition Plan: Admit Medical Decision Making Differential Diagnosis Differential Diagnosis: Clogged dialysis catheter nausea vomiting ESRD worsening Lab Data 02/20/24 08:34 02/20/24 08:34 Labs: Lab Results 02/20/24 Range/Units 08:34 WBC 14.1 H (3.8-10.6) Thou/mm3 RBC 5.77 (4.50-5.90) Miln/mm3 Hgb 15.4 (13.5-16.0) g/dL Hct 47.0 (41.0-53.0) % MCV 82 (80-100) fL MCH 26.7 (25.0-35.0) pg MCHC 32.8 (31.0-37.0) g/dl RDW Std Deviation 44.0 H (35.1-43.9) fL Plt Count 500 H (140-440) Thou/mm3 Neut % (Auto) 82 H (37-80) % Lymph % (Auto) 12 (10-50) % [place] % (Auto) 5 (0-12) % Eos % (Auto) 1 (0-10) % Baso % (Auto) 0 (0-2.5) % Neut # (Auto) 11.5 H (1.8-7.7) Thou/mm3 Lymph # (Auto) 1.6 (1.0-4.8) Thou/mm3 [place] # (Auto) 0.7 (0.0-0.8) Thou/mm3 Eos # (Auto) 0.1 (0.0-0.5) Thou/mm3 Baso # (Auto) 0.1 (0.0-0.2) Thou/mm3 Immature Gran # (Auto) 0.10 H (0.00-0.00) Thou/mm3 Absolute Nucleated RBC 0.00 (0.00-0.00) Thou/mm3 Immature Gran % 1 H (0-0) % Nucleated RBC % 0 (0) /100 WBC Sodium 134 L (136-145) mMol/L Potassium 4.8 (3.4-5.1) mMol/L Chloride 94 L (98-107) mMol/L Carbon Dioxide 23.0 (20.0-31.0) mMol/L Anion Gap 17 H (7-16) BUN 69 H (9-23) mg/dL Creatinine 8.9 H* (0.6-1.3) mg/dL Estim Creat Clear Calc 10.7 L (>60) mL/min eGFR 7 L* (60 - ) See Note BUN/Creatinine Ratio 8 L (12-20) Ratio Glucose 221 H (74-106) mg/dL Calculated Osmolality 295 (275-295) Calcium 10.7 H (8.3-10.6) mg/dL Corrected Calcium 10.7 H (8.5-10.1) mg/dL Magnesium 2.4 (1.6-2.6) mg/dL Total Bilirubin 0.3 (0.3-1.2) mg/dL AST < 8 (0-34) U/L ALT 12 (10-49) U/L Alkaline Phosphatase 64 (46-116) U/L Troponin I < 0.002 (0.0-0.045) ng/mL Total Protein 8.9 H (5.7-8.2) gm/dL Albumin 5.0 (3.5-5.0) gm/dL Globulin 3.9 H (2.3-3.5) gm/dL Albumin/Globulin Ratio 1.3 (1.2-2.2) Lipase 63 H (12-53) U/L Discharge Plan Plan Patient Disposition: Other Care w/in Hosp ([facility]) Patient condition on transfer: Stable Prescriptions/Referrals Prescriptions/Med Rec: No Action nifedipine 60 mg tablet extended release 60 mg PO QDAY Qty: 30 0RF atorvastatin 20 mg tablet 20 mg PO QDAY Patient Comments: TAKE 1 TABLET BY MOUTH EVERYDAY AT BEDTIME Nephro-Charly 0.8 mg tablet 1 tab PO QDAY Patient Comments: TAKE 1 TABLET BY MOUTH EVERY DAY pantoprazole 20 mg tablet,delayed release (DR/EC) 20 mg PO DAILY Patient Comments: TAKE 1 TABLET BY MOUTH ONCE DAILY AM sodium bicarbonate 650 mg tablet 650 mg PO DAILY Patient Comments: TAKE 1 TABLET BY MOUTH ONCE DAILY allopurinol 300 mg tablet 300 mg PO QDAY Patient Comments: TAKE 1 TABLET BY MOUTH ONCE DAILY ergocalciferol (vitamin D2) 1,250 mcg (50,000 unit) capsule 1,250 mcg PO QWEEK Patient Comments: TAKE 1 CAPSULE BY MOUTH ONCE A WEEK Ozempic 0.25 mg or 0.5 mg (2 mg/3 mL) pen injector 0.5 mg SUBCUT QWEEK Patient Comments: INJECT 0.25 MG SUBCUTANEOUSLY ONCE A WEEK FOR 4 WEEKS THEN 0.5MG ONCE A WEEK insulin degludec [Tresiba FlexTouch U-100] 100 unit/mL (3 mL) insulin pen 25 unit subcut QPM Qty: 15 3RF (DME) pen needle, diabetic [Pen Needle] 29 gauge x 1/2 needle See Rx Instructions .Route Qty: 100 3RF Rx Instructions: As directed (DME) FreeStyle Wei 3 [place] Misc See Rx Instructions .Route Qty: 1 0RF Rx Instructions: As directed (DME) FreeStyle Wei 3 Sensor Device See Rx Instructions .Route Qty: 2 3RF Rx Instructions: As directed Ozempic 0.25 mg or 0.5 mg (2 mg/3 mL) pen injector 0.25 mg subcut QWEEK Qty: 3 3RF Rx Instructions: for 4 weeks benazepril 10 mg tablet 10 mg PO QDAY Qty: 30 3RF carvedilol 12.5 mg tablet 12.5 mg PO BID Qty: 60 3RF Rx Instructions: must administer with a meal/food hydralazine 50 mg tablet 50 mg PO TID Qty: 90 3RF Referrals: Mao Membreno MD [Primary Care Provider] - In 1 week Problem List Clinical Impression: Nausea & vomiting, End-stage renal disease (ESRD), Dialysis catheter clot or failure Patient/Caregiver Discharge Instructions Print Language: Lithuanian Stand Alone Forms: Jennifer Award Info., Patient Portal Info Letter PA/WEIGHT CONTROL LECTURER Supervising Physician PA/WEIGHT CONTROL LECTURER Supervising Physician: Chente Dietrich ENP
[2024-02-20 13:50] LABS: Amorphous Crystals,Urine Present (Absent); Bacteria,Urine Rare; Bilirubin,Urine Negative (Negative); Blood,Urine Negative (Negative); Color,Urine Yellow (Lt Yel-Yel); Glucose, Urine Negative (Negative); Ketones,Urine Negative (Negative); Leukocyte Esterase,Urine Negative (Negative); Nitrite,Urine Negative (Negative); PH,Urine 5.5 (5.0-7.0); Protein,Urine 2+ (Neg - Trace); RBC,Urine 11 /hpf (0-3); Specific Gravity,Urine 1.023 (1.001-1.035); Squamous Epithelial Cell,Urine < 1 /hpf (0-5); Urobilinogen,Urine Negative mg/dL (0.0-1.0); WBC,Urine 14 /hpf (0-5)
[2024-02-20 13:52] LABS: Clarity,Urine Hazy (Clear/Hazy); Culture Indicated,Urine Yes
--- NOTE | 2024-02-20 13:53 | XR_ITS ---
Examination: Small bowel series with KUBs Exam date and time: February 19, 2019 0503 hours INDICATIONS: Fluid distended stomach, multiple fluid distended small bowel loops on CT abdomen pelvis study today FINDINGS: Film labeled AP portable supine 1 minute shows contrast in the stomach No further films are obtained Peritoneal dialysis catheter is coiled in the right abdomen IMPRESSION: Abdomen film shows contrast in the stomach
--- NOTE | 2024-02-20 14:40 | PD.RESHP ---
Documentation for date of: 02/20/24 HPI History of Present Illness Chief complaint: Abdominal pain for 2 days History of present illness: HPI: 38-year-old male patient with past medical history of hypertension, diabetes mellitus, hyperlipidemia, persistent tachycardia, ESRD on peritoneal dialysis at home presented to the ED due to 2 days history of nausea and vomiting associated with heartburn. Patient reported 1 week ago his peritoneal dialysis catheter stopped draining for that reason he stopped doing dialysis at home. Patient was scheduled to see his surgeon Dr. Fischer who placed the catheter on however in the past 2 days patient developed persistent nausea and vomiting associated with heartburn. He also mentioned that he developed sowed's of watery diarrhea. Patient also reported that he noticed that his urine output has decreased and became dark orange however he denied any bleeding. He mentions some hesitancy however denied any dysuria or frequency. on questioning patient reported that his heartburn increased when he lay flat, and feels metallic taste in his mouth. He reported that he ate spicy food on Monday which was the only unusual diet that he had. Denied any shortness of breath, however he mentioned that he has persistent tachycardia in which he did multiple tests including Holter EKG and there was no obvious reasons. Patient follow-up with the powder blender Dr. Meadows. During history taking and noticed that the patient was having multiple EPISODES however patient denied any itching. Home medications: Carvedilol, Ozempic, atorvastatin, pantoprazole, nifedipine, Suyapa-Charly, benazepril, vitamin D, allopurinol ED course: At the ED patient was noted to us to have heart rate of 123, WBCs was 14.5, hemoglobin of 15.4, platelets of 500, sodium level of 134, potassium 4.8, chloride 94, BUN increased to 69 and which is baseline range between 36-44. Serum creatinine increased to 8.9, glucose 221, calcium 10.7, total protein mildly elevated to 8.9 albumin within normal limits 5.0, lipase 63. CT scan was done showed possible clinical picture of SBO however while the patient having abdominal series patient had a bowel movement for that reason we counseled the GI follow-through. His urine analysis showed positive RBCs and WBCs with amorphous crystals and positive bacteria. Blood culture and urine culture was sent. PMH: As above Social hx: Alcohol: Denied Tobacco: Denied Illicit drugs: Remote history of marijuana abuse Allergies: No known allergies Exam Vital Signs Temp Pulse Resp BP Pulse Ox O2 Del Method 97.7 F 108 H 19 140/112 H 96 Room Air 02/20/24 12:55 02/20/24 12:55 02/20/24 12:55 02/20/24 12:55 02/20/24 12:55 02/20/24 12:55 Narrative Exam GEN: AOx3, -Mozambican, able to speak full sentences appears to be in distress, sunken eyes HEENT: NC/AC, oral mucosa is dry, neck supple CVS: RRR, S1-S2 present, no murmurs appreciated RESP: CTAB GI: PD dialysis in place, no visible leak, no abdominal tenderness, soft,non distended, exaggerated bowel sounds MSK: able to move all 4 limbs, no lower extremity edema SKIN: warm and dry TRANSPLANT NURSE PRACTITIONER: CN II-XII and Sensation grossly intact. Results: Labs 02/20/24 08:34 02/20/24 08:34 Labs: Short CBC 02/20/24 Range/Units 08:34 WBC 14.1 H (3.8-10.6) Thou/mm3 Hgb 15.4 (13.5-16.0) g/dL Hct 47.0 (41.0-53.0) % Plt Count 500 H (140-440) Thou/mm3 BMP 02/20/24 08:34 Sodium 134 L Potassium 4.8 Chloride 94 L Carbon Dioxide 23.0 BUN 69 H Creatinine 8.9 H* Glucose 221 H Calcium 10.7 H Cardiac Enzymes 02/20/24 Range/Units 08:34 Troponin I < 0.002 (0.0-0.045) ng/mL Liver Function 02/20/24 Range/Units 08:34 Total Bilirubin 0.3 (0.3-1.2) mg/dL AST < 8 (0-34) U/L ALT 12 (10-49) U/L Alkaline Phosphatase 64 (46-116) U/L Albumin 5.0 (3.5-5.0) gm/dL Urine 02/20/24 Range/Units 13:20 Urine Color Yellow (Lt Yel-Yel) Urine Clarity Hazy (Clear/Hazy) Urine pH 5.5 (5.0-7.0) Ur Specific Ramsey 1.023 (1.001-1.035) Urine Protein 2+ A (Neg - Trace) Urine Glucose (UA) Negative (Negative) Quality Measures Quality Measures none Medications Home Medications and Allergies Home Medications ?Medication ?Instructions ?Recorded ?Confirmed ?Type atorvastatin 20 mg tablet 20 mg PO QDAY 08/25/21 12/08/23 History vitamin B complex-vitamin C-folic 1 tab PO QDAY 08/25/21 08/04/23 History acid 0.8 mg tablet (Nephro-Charly) allopurinol 300 mg tablet 300 mg PO QDAY 08/04/23 08/04/23 History ergocalciferol (vitamin D2) 1,250 1,250 mcg PO QWEEK 08/04/23 08/04/23 History mcg (50,000 unit) capsule semaglutide 0.25 mg or 0.5 mg (2 0.5 mg subcut QWEEK 08/04/23 12/08/23 History mg/3 mL) subcutaneous pen injector (Ozempic) pantoprazole 20 mg tablet,delayed 20 mg PO DAILY 12/08/23 12/08/23 History release sodium bicarbonate 650 mg tablet 650 mg PO DAILY 12/08/23 12/08/23 History Allergies Allergy/AdvReac Type Severity Reaction Status Date / Time No Known Allergies Allergy Verified 02/20/24 07:38 Visit Medications Discontinued Medications Ondansetron HCl (Ondansetron Inj 2 Mg/Ml Inj 2 Ml) 4 mg IV X1 ONE; Protocol Stop: 02/20/24 07:44 Pantoprazole Sodium (Pantoprazole Inj 40 Mg Vial) 40 mg IVP X1 ONE Stop: 02/20/24 14:26 Sucralfate (Sucralfate Susp 1 Gm/10 Ml Udc) 1 gm PO X1 ONE Stop: 02/20/24 14:26 Assessment & Plan Plan Summary:38-year-old male patient with past medical history of hypertension, diabetes mellitus, hyperlipidemia, persistent tachycardia, ESRD on peritoneal dialysis at home presented to the ED due to 2 days history of nausea and vomiting associated with heartburn. Patient reported 1 week ago his peritoneal dialysis catheter stopped draining for that reason he stopped doing dialysis at home. Patient was admitted for management of ESRD, PD catheter evaluation #ESRD on peritoneal dialysis #Peritoneal dialysis catheter blockage #Symptomatic hyper-uremia Patient is known case of ESRD on peritoneal dialysis daily. Last week he noticed that his tube is not draining and he has missed his sessions of dialysis for the past week. Denies any fever or chills. Patient still produce urine. Noticed to have serum urate level of 67, serum creatinine 5.6 potassium was 4.8. Plan ? Admit patient to med/tele ? Surgical consultation to Dr. Fischer was sent, pending recommendations ? Daily CMP ? Keep the patient n.p.o. for surgical review of the peritoneal dialysis tomorrow by Dr Fischer ? At this time there is no emergency indication for hemodialysis ? Will start the patient on Zosyn as below #UTI #Sepsis sepsis secondary to UTI A presentation patient presented with WBC count of 14.5, urine analysis showed positive WBC, positive blood, positive bacteria, Plan ? Start the patient on Zosyn 0 02/19/? ? Send for urine culture and blood culture History of hypertension Plan ? At this time his blood pressure stable for that reason we will hold on resuming his home medication at this time. #History of diabetes mellitus Plan ? Insulin sliding scale ? Hypoglycemia protocol ? Patient will be n.p.o. after midnight for surgical review of his peritoneal dialysis History of persistent tachycardia Plan ? Will keep monitoring Med-Tele Hospital Maintenance: FEN: Carb consistent diet, n.p.o. after midnight DVT ppx: SCDs GI ppx: Protonix IV lines: PIV Barbour: Barbour's Code status: Full code Dispo: Med telemetry - Patient's plan and care discussed with my attending, Dr. Temi Grajeda MD Internal Medicine PGY-2 Attending Provider Attestation/Addendum Seen and examined with resident physician Dr. Butts. Note reviewed, agree with findings and recommendations. Dr Fischer planning to change PD catheter tomorrow.
[2024-02-20 15:38] VITALS: BP 137/101; PULSE 113; RESP 25; TEMP 36.9; O2SAT 100
[2024-02-20 15:55] LABS: Troponin I < 0.002 ng/mL (0.0-0.045)
[2024-02-20] MEDS: SODIUM CHLORIDE 0.9% 1000 ML 1,000 ML 999 ML IV (16:00)
[2024-02-20] MEDS: PANTOPRAZOLE INJ 40 MG VIAL IVP (16:19)
[2024-02-20] MEDS: ONDANSETRON INJ 2 MG/ML INJ 2 ML 4 MG IV (16:19)
[2024-02-20] MEDS: PIPER/TAZO INJ 4.5 GM in SODIUM CHLORIDE 0.9% (P) 100 ML IV (16:19)
[2024-02-20] MEDS: oxyCODONE/APAP 5/325 TABLET 1 TAB PO (16:19)
[2024-02-20] MEDS: INSULIN GLARGINE (Lantus) 5 UNIT/0.05 ML (PER 5 UNITS) SC (16:19)
[2024-02-20 16:24] LABS: Lactate (Lactic Acid) 2.4 mMol/L (0.4-2.0)
[2024-02-20] MEDS: SUCRALFATE SUSP 1 GM/10 ML UDC PO (16:57)
[2024-02-20] MEDS: RINGERS LACTATED 1000 ML 1,000 ML 75 ML IV (16:58)
[2024-02-20 18:21] VITALS: BP 127/98; PULSE 114; RESP 19; TEMP 36.9; O2SAT 100
[2024-02-20] MEDS: INSULIN LISPRO (AdmeLOG) 1 UNIT/0.01 ML UNIT SC (18:23)
--- NOTE | 2024-02-20 18:36 | PC.NURSE ---
Dr. Membreno notified of pt. labs anion gap 17 and beta hydroxy of 2.0. Per Dr. Membreno this patient is not in DKA, the pt. is a dialysis patient and the Anion gap is always high. Per Dr. Membreno continue with med tele admission. Report received from Shayan in ED
--- NOTE | 2024-02-20 19:10 | PC.NURSE ---
Report given to night coordinator RN agustin based on report from ED nurse. Pt. not in room yet.
[2024-02-20 19:20] LABS: Reflex Lactate? Y
--- NOTE | 2024-02-20 19:39 | PD.SURCONS ---
HPI Consult details Consult date: 02/20/24 Reason for consultation narrative: Malfunctioning PD catheter History of present illness: 38-year-old male with history of hypertension, diabetes, end-stage renal disease on peritoneal dialysis. He underwent placement of peritoneal dialysis catheter in August. His catheter has been working until 4 days ago when it stopped draining. After his peritoneal dialysis catheter stopped draining he started developing abdominal pain and constipation with nausea. He denies vomiting, fever or chills. CT scan revealed findings suspicious for small bowel obstruction, however he had 2 bowel movements earlier today. Review of Systems Constitutional Constitutional: Denies chills and Denies fever(s) Cardiovascular Cardiovascular: Denies chest pain Respiratory Respiratory: Denies cough Gastrointestinal Gastrointestinal: Reports abdominal pain, Reports nausea and Denies vomiting Hematologic/Lymphatic Hematologic/Lymphatic: Denies easy bleeding and Denies easy bruising Past Medical History Surgical History OTHER SURGICAL HX: Laparoscopic assisted peritoneal dialysis catheter placement Meds Home Medications and Allergies Home Medications ?Medication ?Instructions ?Recorded ?Confirmed ?Type atorvastatin 20 mg tablet 20 mg PO QPM 08/25/21 02/21/24 History vitamin B complex-vitamin C-folic 1 tab PO QDAY 08/25/21 02/21/24 History acid 0.8 mg tablet (Nephro-Charly) allopurinol 300 mg tablet 300 mg PO QDAY 08/04/23 08/04/23 History ergocalciferol (vitamin D2) 1,250 1,250 mcg PO QWEEK 08/04/23 08/04/23 History mcg (50,000 unit) capsule semaglutide 0.25 mg or 0.5 mg (2 0.5 mg subcut QWEEK 08/04/23 02/21/24 History mg/3 mL) subcutaneous pen injector (Ozempic) pantoprazole 20 mg tablet,delayed 20 mg PO DAILY 12/08/23 02/21/24 History release sodium bicarbonate 650 mg tablet 325 mg PO DAILY 12/08/23 02/21/24 History carvedilol 12.5 mg tablet 25 mg PO BID 02/21/24 02/21/24 History insulin degludec 200 unit/mL (3 25 unit subcut BID 02/21/24 02/21/24 History mL) subcutaneous pen (Tresiba FlexTouch U-200 insulin) Allergies Allergy/AdvReac Type Severity Reaction Status Date / Time No Known Allergies Allergy Verified 02/20/24 07:38 Exam Vital Signs Temp Pulse Resp BP Pulse Ox O2 Del Method 98.5 F 114 H 19 127/98 H 100 Room Air 02/20/24 18:21 02/20/24 18:21 02/20/24 18:21 02/20/24 18:21 02/20/24 18:21 02/20/24 18:21 Constitutional Constitutional: no acute distress Routine Abdominal Exam Abdominal: Present soft and normoactive bowel sounds; Absent tenderness (Peritoneal dialysis catheter in place and intact without external evidence of infection) or distended Results Results: Laboratory Laboratory results: results reviewed Results: Imaging CT scan - abdomen: report reviewed and image reviewed CT scan - pelvis: report reviewed and image reviewed Assessment & Plan Problem List (1) Other mechanical complication of intraperitoneal dialysis catheter, initial encounter: Status: Acute Plan NPO after midnight tonight. Plan for laparoscopy with revision of peritoneal dialysis catheter tomorrow. Risks include but not limited to infection, bleeding, injury to bowel, surround neurovascular structures, catheter infection and or malfunction, abdominal sepsis and or abdominal abscess, need for further procedure and or operation discussed with the patient. Benefits and alternatives explained to him, all his questions answered, he agreed and consented to proceed with the operation.
[2024-02-20 20:00] VITALS: BP 119/89; PULSE 87; RESP 17; TEMP 37.2; O2SAT 100
[2024-02-20 20:03] LABS: Lactic Acid, 3 HR 1.7 mMol/L (0.4-2.0)
--- NOTE | 2024-02-20 20:16 | PC.NURSE ---
patient c/o hiccup that doesn't go away, tried water but still persists, patient does have some abdominal pain. Called Dr. Membreno regarding patient's concern, will put in orders. Patient will be NPO after midnight, per doctor Temi PO meds are okay to give.
[2024-02-20] MEDS: CHLORpromAZINE INJ 25 MG/ML AMPULE 2ML IV (20:40)
--- NOTE | 2024-02-20 22:10 | PC.NURSE ---
informed Dr. Membreno patient's hiccups has not gone away but no c/o pain.
[2024-02-20] MEDS: ACETAMINOPHEN 325 MG TABLET 650 MG PO (22:21)
[2024-02-21] VITALS (13 sets, daily range): BP systolic 108–138; BP diastolic 78–100; PULSE 89–108; RESP 15–99; TEMP 36.1–37.1; O2SAT 96–100; BMI 22.3
[2024-02-21 05:32] LABS: Basophils % (Auto) 0 % (0-2.5); Eosinophils # (Auto) 0.2 Thou/mm3 (0.0-0.5); Eosinophils % (Auto) 3 % (0-10); Hematocrit 36.3 % (41.0-53.0); Hemoglobin 11.8 g/dL (13.5-16.0); Immature Granulocytes % (Auto) 1 % (0-0); Immature Granulocytes Auto 0.05 Thou/mm3 (0.00-0.00); Lymphocytes # (Auto) 1.3 Thou/mm3 (1.0-4.8); Lymphocytes % (Auto) 19 % (10-50); Mean Corpuscular HGB Conc 32.5 g/dl (31.0-37.0); Mean Corpuscular Hemoglobin 26.5 pg (25.0-35.0); Mean Corpuscular Volume 81 fL (80-100); Monocytes # (Auto) 0.6 Thou/mm3 (0.0-0.8); Monocytes % (Auto) 9 % (0-12); Neutrophils # (Auto) 4.8 Thou/mm3 (1.8-7.7); Neutrophils % (Auto) 69 % (37-80); Nucleated Red Blood Cell % 0 /100 WBC (0); Platelet Count 402 Thou/mm3 (140-440); RDW Standard Deviation 43.3 fL (35.1-43.9); Red Blood Count 4.46 Miln/mm3 (4.50-5.90); White Blood Count 7.1 Thou/mm3 (3.8-10.6)
[2024-02-21 05:48] LABS: Partial Thromboplastin Time 32.5 Seconds (22.0-36.0); Prothrombin Time 10.9 Seconds (9.0-12.2)
[2024-02-21] MEDS: CHLORpromAZINE INJ 25 MG/ML AMPULE 2ML IV ×2 (06:21→19:31)
--- NOTE | 2024-02-21 06:30 | PC.NURSE ---
MD Membreno is notified that patient is complaining of chest tightness which worsens with the hiccups. MD said to have troponin levels drawn
[2024-02-21 06:52] LABS: Alanine Aminotransferase < 7 U/L (10-49); Albumin, Serum 3.7 gm/dL (3.5-5.0); Albumin/Globulin Ratio 1.3 (1.2-2.2); Alkaline Phosphatase 46 U/L (46-116); Anion Gap 12 (7-16); Aspartate Amino Transferase < 8 U/L (0-34); BUN/Creatinine Ratio 9 Ratio (12-20); Bilirubin,Total 0.3 mg/dL (0.3-1.2); Blood Urea Nitrogen 79 mg/dL (9-23); Calcium 8.9 mg/dL (8.3-10.6); Calcium (Corrected) 9.1 mg/dL (8.5-10.1); Carbon Dioxide 19.1 mMol/L (20.0-31.0); Chloride 97 mMol/L (98-107); Creatinine (Component) 9.2 mg/dL (0.6-1.3); Estimated Creatinine Clearance 10.7 mL/min (>60); Globulin 2.8 gm/dL (2.3-3.5); Glucose 124 mg/dL (74-106); Magnesium 1.9 mg/dL (1.6-2.6); Osmolality,Calculated 281 (275-295); Phosphorous 5.9 mg/dL (2.4-5.1); Potassium 4.4 mMol/L (3.4-5.1); Sodium 128 mMol/L (136-145); Thyroid Stimulating Hormone 2.08 uIU/mL (0.55-4.78); Total Protein 6.5 gm/dL (5.7-8.2); Troponin I < 0.020 ng/mL (0.0-0.045); eGFR 7 See Note
--- NOTE | 2024-02-21 08:59 | EKG_ITS ---
[facility] Test Date: 2024-02-21 Pat Name: DEREK KATZ [facility]: [facility] Gender: Male Family Law Attorney: OMAR : 1985 Requested By: Beckie Grajeda Order Number: [id number] Reading MD: Beckie Grajeda Measurements Intervals [place] Rate: 98 P: 34 WI: 163 QRS: 47 QRSD: 89 T: 31 QT: 330 QTc: 422 Interpretive Statements SINUS RHYTHM NONSPECIFIC T-WAVE ABNORMALITY Compared to ECG 02/20/2024 07:56:49 T-wave abnormality now present Atrial flutter no longer present Left ventricular hypertrophy no longer present ST (T wave) deviation no longer present /store/S0/[id number].pdf
[2024-02-21] MEDS: HYDROmorphone INJ 2 MG/ML VIAL 0.25 MG IVP (09:22)
[2024-02-21] MEDS: PANTOPRAZOLE INJ 40 MG VIAL IVP (09:23)
[2024-02-21] MEDS: INSULIN GLARGINE (Lantus) 5 UNIT/0.05 ML (PER 5 UNITS) SC (09:23)
[2024-02-21] MEDS: PIPER/TAZO 3.375 GM 50 ML IV ×2 (09:23→20:53)
[2024-02-21] MEDS: SODIUM CHLORIDE 0.9% 1000 ML 1,000 ML 70 ML IV (09:24)
--- NOTE | 2024-02-21 09:50 | PC.NURSE ---
Telephone report given to KIMBERLY Saenz in surgery. Estimated time for surgery: 1100- patient made aware.
--- NOTE | 2024-02-21 10:50 | PC.NURSE ---
Patient transported to surgery. Patient awake, alert and oriented with no signs of acute distress.
--- NOTE | 2024-02-21 11:56 | PD.SUROPNT ---
Date of Procedure 02/21/24 Pre Op Diagnosis Mechanical complication of peritoneal dialysis catheter End-stage renal disease requiring dialysis Post Op Diagnosis Mechanical complication of peritoneal dialysis catheter End-stage renal disease requiring dialysis Procedure Laparoscopic assisted revision of peritoneal dialysis catheter with removal of intraluminal obstructive material Findings There is large amount of obstructive intraluminal material at the distal end of the catheter with small bowel loops wrapped around the distal end of the catheter Procedure Description Patient brought into the operating room in supine position. After administration of general tracheal anesthesia, patient's abdomen and his peritoneal dialysis catheter were prepped and draped in standard surgical manner. A Veress needle was inserted through the umbilicus and pneumoperitoneum was obtained up to 15 mmHg. The Veress needle was removed and a 5 mm right upper quadrant incision was made. 5 mm trocar was placed and laparoscopic camera was inserted. Under direct visualization a laparoscopic camera a 5 mm trocar was placed in left lower quadrant and additional 5 mm trocar was placed in left epigastrium. The abdomen was inspected there was some fluid throughout the abdomen that did not appear to be purulent and there was no evidence of peritonitis. The abdomen and pelvis washed and irrigated. The catheter was identified and noted to be wrapped around the loop of small bowel. It was from the loop of small bowel. There were evidence of obstructive intraluminal material at the distal end of the peritoneal dialysis catheter. A guidewire was placed at the external part of the catheter and advanced until all the obstructive intraluminal materials were removed. The catheter was then flushed with heparinized saline. The catheter was positioned in the pelvis. Using Endo closure device a suture was placed in suprapubic region around the catheter to hold the catheter in place and prevent potential displacement. Hemostasis was adequate and satisfactory. Instrument and laparoscopic camera removed, pneumoperitoneum was evacuated and trocars removed. Incisions closed with 4-0 Monocryl in subcuticular fashion. Dermabond applied. Patient tolerated procedure well. He was extubated, breathing spontaneously and without difficulty and was transferred to postanesthesia care in stable condition. Instruments, needles and sponge counts were reported to be correct x 2. Anesthesia GETA and local Pathology / specimen None Estimated Blood Loss 2 Condition Stable Disposition PACU Surgeon Dane Fischer MD Surgical Staff Operation Date: 02/21/24 11:15 Case Staff Anesthesiologist: Pablo Dominique RN First Assistant: Funmilayo Hugo
--- NOTE | 2024-02-21 11:59 | SUR.PHASEI ---
1159: Pt arrived with oral airway in place, vitals stable, breathing unlabored, no signs of distress, dressing to left ABD CDI, no active bleed noted, report received from MD Dominique and Brad HARRIS.
--- NOTE | 2024-02-21 12:17 | PC.SS ---
Follow up note: Pt will have peritoneal catheter fixed. Patient's home care attendant is Dr. Membreno
--- NOTE | 2024-02-21 12:19 | PD.RESPRO ---
Documentation for date of: 02/21/24 Subjective Subjective Interval history: Summary:38-year-old male patient with past medical history of hypertension, diabetes mellitus, hyperlipidemia, persistent tachycardia, ESRD on peritoneal dialysis at home presented to the ED due to 2 days history of nausea and vomiting associated with heartburn. Patient reported 1 week ago his peritoneal dialysis catheter stopped draining for that reason he stopped doing dialysis at home. Patient was admitted for management of ESRD, PD catheter evaluation 02/21/2024, patient was seen and examined at bedside. Overnight patient reported recurrent episodes of head In which she was given promethazine which helped somehow however as soon as the medication wean off his hiccups come back again. He is complaining of mild chest achiness that increased when he take a deep breath and he believes that is because of the persistent hiccups and vomiting. At this time patient is n.p.o. for the peritoneal dialysis evaluation by Dr Fischer today. Vitally patient blood pressure stable at 127/94, heart rate still mildly elevated which is his baseline at 106. Patient reported significant improvement in his general condition. He still on room air does not require any oxygen. All his saline has decreased to baseline after he was rehydrated. Lactic acid decreased from 2.5-1.5 today. His hemoglobin 11.8 and WBCs 7.1, sodium noticed to be 128 we will continue to monitor closely will give him normal saline at 100 mL/h for 1 bag, noticed to have bicarb of 19.1 and BUN of 79 creatinine 9.2, as soon as the patient finishes the procedure will resume his peritoneal dialysis after clearance from the general surgeon Dr. Fischer. Repeat EKG was done and showed no significant changes or ischemic changes in his EKG. Exam Vital Signs Temp Pulse Resp BP Pulse Ox O2 Del Method O2 Flow Rate 97.6 F 106 H 19 127/94 H 98 Room Air 2 02/21/24 12:14 02/21/24 12:14 02/21/24 12:14 02/21/24 12:14 02/21/24 12:14 02/21/24 08:00 02/21/24 12:09 Narrative Exam GEN: AOx3, -Cypriot, able to speak full sentences, lying in bed comfortably HEENT: NC/AC, oral mucosa is dry, neck supple CVS: RRR, S1-S2 present, no murmurs appreciated RESP: CTAB GI: PD dialysis in place, no visible leak, no abdominal tenderness, soft,non distended, normal bowel sounds MSK: able to move all 4 limbs, no lower extremity edema SKIN: warm and dry SUBSTANCE ABUSE SERVICES DIRECTOR: CN II-XII and Sensation grossly intact. Objective Labs 02/22/24 15:42 02/22/24 05:25 Labs: Laboratory Results - last 24 hr 02/20/24 02/20/24 02/20/24 13:20 14:40 16:05 WBC RBC Hgb Hct MCV MCH MCHC RDW Std Deviation Plt Count Neut % (Auto) Lymph % (Auto) Terrell % (Auto) Eos % (Auto) Baso % (Auto) Neut # (Auto) Lymph # (Auto) Terrell # (Auto) Eos # (Auto) Baso # (Auto) Immature Gran # (Auto) Absolute Nucleated RBC Immature Gran % Nucleated RBC % PT INR APTT Sodium Potassium Chloride Carbon Dioxide Anion Gap BUN Creatinine Estim Creat Clear Calc eGFR BUN/Creatinine Ratio Glucose Calculated Osmolality Lactic Acid 2.4 H Calcium Corrected Calcium Phosphorus Magnesium Total Bilirubin AST ALT Alkaline Phosphatase Troponin I < 0.002 Total Protein Albumin Globulin Albumin/Globulin Ratio Beta-Hydroxybutyrate/Acetoacetate 2.0 H TSH Ur Collection Type Clean Catch Urine Color Yellow Urine Clarity Hazy Urine pH 5.5 Ur Specific [place] 1.023 Urine Protein 2+ A Urine Glucose (UA) Negative Urine Ketones Negative Urine Blood Negative Urine Nitrite Negative Urine Bilirubin Negative Urine Urobilinogen (Auto) Negative Ur Leukocyte Esterase Negative Urine RBC 11 H Urine WBC 14 H Ur Squamous Epith Cells < 1 Amorphous Crystals Present A Urine Bacteria Rare Ur Culture Indicated? Yes 02/20/24 02/21/24 19:50 04:36 WBC 7.1 D RBC 4.46 L Hgb 11.8 L D Hct 36.3 L D MCV 81 MCH 26.5 MCHC 32.5 RDW Std Deviation 43.3 Plt Count 402 D Neut % (Auto) 69 Lymph % (Auto) 19 Terrell % (Auto) 9 Eos % (Auto) 3 Baso % (Auto) 0 Neut # (Auto) 4.8 Lymph # (Auto) 1.3 Terrell # (Auto) 0.6 Eos # (Auto) 0.2 Baso # (Auto) 0.0 Immature Gran # (Auto) 0.05 H Absolute Nucleated RBC 0.00 Immature Gran % 1 H Nucleated RBC % 0 PT 10.9 INR 1.0 APTT 32.5 Sodium 128 L Potassium 4.4 Chloride 97 L Carbon Dioxide 19.1 L Anion Gap 12 BUN 79 H Creatinine 9.2 H* Estim Creat Clear Calc 10.7 L eGFR 7 L* BUN/Creatinine Ratio 9 L Glucose 124 H D Calculated Osmolality 281 Lactic Acid 1.7 Calcium 8.9 D Corrected Calcium 9.1 D Phosphorus 5.9 H Magnesium 1.9 Total Bilirubin 0.3 AST < 8 ALT < 7 L Alkaline Phosphatase 46 D Troponin I < 0.020 Total Protein 6.5 Albumin 3.7 D Globulin 2.8 Albumin/Globulin Ratio 1.3 Beta-Hydroxybutyrate/Acetoacetate TSH 2.08 Ur Collection Type Urine Color Urine Clarity Urine pH Ur Specific [place] Urine Protein Urine Glucose (UA) Urine Ketones Urine Blood Urine Nitrite Urine Bilirubin Urine Urobilinogen (Auto) Ur Leukocyte Esterase Urine RBC Urine WBC Ur Squamous Epith Cells Amorphous Crystals Urine Bacteria Ur Culture Indicated? Quality Measures Quality Measures none Assessment & Plan Assessment Current Active Medications: Generic Name Dose Route Start Last Admin Trade Name Freq PRN Reason Stop Dose Admin Acetaminophen 650 mg 02/20/24 22:09 02/20/24 22:21 Acetaminophen 325 Mg Tablet PO 03/21/24 14:42 650 mg Q6H PRN Administration Fever >101.5 and pain 1-3 Chlorpromazine HCl 25 mg 02/20/24 20:22 02/21/24 06:21 Chlorpromazine Inj 25 Mg/Ml Ampule 2ml IV 03/21/24 20:21 25 mg Q6HR PRN Administration HICCUPS Dextrose 25 ml 02/20/24 14:45 Dextrose 50%-Water Inj 50 Ml Syringe IV 03/21/24 14:44 Q15MIN PRN BG 50-70 responsive npo pt Dextrose 50 ml 02/20/24 14:45 Dextrose 50%-Water Inj 50 Ml Syringe IV 03/21/24 14:44 Q15MIN PRN BG <50 OR BG <70 & pt unresponsive Fentanyl Citrate 25 mcg 02/21/24 11:06 Fentanyl Cit Inj 50 Mcg/Ml Amp 2ml IV 02/21/24 13:06 Q5M PRN PAIN SCALE 7-10 (Severe Protocol Fentanyl Citrate 25 mcg 02/21/24 11:06 Fentanyl Cit Inj 50 Mcg/Ml Amp 2ml IV 02/21/24 13:06 Q5M PRN PAIN SCALE 4-6 (Moderate Protocol Fentanyl Citrate 25 mcg 02/21/24 11:06 Fentanyl Cit Inj 50 Mcg/Ml Amp 2ml IV 02/21/24 13:06 Q5M PRN PAIN SCALE 1-3 (mild Protocol Glucagon 1 mg 02/20/24 14:45 Glucagon Inj 1 Mg Vial IM Q15MIN PRN BG <70, and no IV access Piperacillin/Tazobactam/Dextrose 50 mls @ 12.5 mls/hr 02/21/24 09:00 02/21/24 09:23 Zosyn IV 02/28/24 08:59 12.5 mls/hr Q12HR JANET Administration Protocol Sodium Chloride 1,000 mls @ 70 mls/hr 02/21/24 09:01 02/21/24 09:24 Ns IV 02/21/24 23:18 70 mls/hr .[id number] JANET Administration Insulin Glargine 5 unit 02/20/24 15:00 02/21/24 09:23 Insulin Glargine (Lantus) 5 Unit/0.05 Ml (Per 5 Units) SC 03/21/24 14:59 5 unit QDAY JANET Administration Insulin Human Lispro 0 unit 02/21/24 01:30 02/21/24 07:29 Insulin Lispro (Admelog) 1 Unit/0.01 Ml Unit SC 03/22/24 01:29 Not Given Q6H JANET Protocol Morphine Sulfate 2 mg 02/21/24 09:57 Morphine Sulf Inj 10 Mg/Ml Vial IVP 02/25/24 20:21 Q6HR PRN PAIN SCALE 4-10(Mod-Sev Ondansetron HCl 4 mg 02/20/24 14:43 02/20/24 16:19 Ondansetron Inj 2 Mg/Ml Inj 2 Ml IV 03/21/24 14:42 4 mg Q6H PRN Administration NAUSEA OR VOMITING Protocol Pantoprazole Sodium 40 mg 02/21/24 09:00 02/21/24 09:23 Pantoprazole Inj 40 Mg Vial IVP 03/22/24 08:59 40 mg QDAY JANET Administration Plan Summary:38-year-old male patient with past medical history of hypertension, diabetes mellitus, hyperlipidemia, persistent tachycardia, ESRD on peritoneal dialysis at home presented to the ED due to 2 days history of nausea and vomiting associated with heartburn. Patient reported 1 week ago his peritoneal dialysis catheter stopped draining for that reason he stopped doing dialysis at home. Patient was admitted for management of ESRD, PD catheter evaluation #ESRD on peritoneal dialysis #Peritoneal dialysis catheter blockage #Symptomatic hyper-uremia #Persistent hiccups Patient is known case of ESRD on peritoneal dialysis daily. Last week he noticed that his tube is not draining and he has missed his sessions of dialysis for the past week. Denies any fever or chills. Patient still produce urine. Noticed to have serum urate level of 67, serum creatinine 5.6 potassium was 4.8. Plan ? Surgical consultation to Dr. Fischer was sent, recommendations appreciated ? Daily CMP ? Keep the patient n.p.o. for surgical review of the peritoneal dialysis tomorrow by Dr Fischer ? At this time there is no emergency indication for hemodialysis ? Will start the patient on Zosyn as below ?Chlorpromazine 25 mg 4 times daily as needed #UTI #Sepsis sepsis secondary to UTI A presentation patient presented with WBC count of 14.5, urine analysis showed positive WBC, positive blood, positive bacteria, Plan ? Start the patient on Zosyn 0 02/19/? ? Send for urine culture and blood culture #Severe GERD Patient reported significant heartburn, uses Protonix on daily. Today patient still complaining of significant heartburn Plan ? Protonix 40 mg IV daily ? GI consultation to Dr. Zhang was ordered #History of hypertension Plan ? At this time his blood pressure stable for that reason we will hold on resuming his home medication at this time. #History of diabetes mellitus Plan ? Insulin sliding scale ? Hypoglycemia protocol ? Patient will be n.p.o. after midnight for surgical review of his peritoneal dialysis #History of persistent tachycardia Plan ? Will keep monitoring Med-Tele Hospital Maintenance: FEN: Keep the patient n.p.o., DVT ppx: SCDs GI ppx: Protonix IV lines: PIV Barbour: Barbour's Code status: Full code Dispo: Med telemetry - Patient's plan and care discussed with my attending, Dr. Tmei Grajeda MD Internal Medicine PGY-2 Attending Provider Attestation/Addendum Patient seen and examined with resident physician Dr. Butts. Note reviewed, agree with findings and recommendations. Patient will be going for PD catheter exchange today. Will start a peritoneal dialysis tonight with cycler.
--- NOTE | 2024-02-21 12:30 | SUR.PHASEI ---
1230: Pt. AAOx4, vitals stable, breathing unlabored, after disconnecting pt. from vitals machine he stated he was a little sore (notified pt. PREPPER, couldn't find floor nurse to make her aware), no complaint of nausea, dressing to lower left ABD CDI, no active bleed noted, pt. tolerated bites of ice chips well, family made aware of transfer back to room.
[2024-02-21] MEDS: MORPHINE SULF INJ 10 MG/ML VIAL 2 MG IVP ×2 (13:35→19:29)
--- NOTE | 2024-02-21 13:53 | PC.SS ---
SS met with patient regarding his d/c plan. Pt is alert/oriented. Pt was admitted for Blocked PD, N/V. Pt confirmed demographic and contact information is correct on facesheet. Pt resides with and roommate. Pt ambulates independently without assistance or DME. Pt is ok with all ADLs. Patient?s pharmacy of choice is [facility]. Pt named his , Ella Velazquez medical decision maker if she is unable. Patient?s choice is to return home upon d/c. Pt states he has a an advance directive at home but not completed. Pt states he is diabetic and has CGM. Pt does perioteniel dialysis at home and her wall insulation sprayer is Dr. Villalpando. Pt states he followed up with PCP last Monday. D/C plan: Return home Next of Kin: Ella Velazquez, , phone# [phone] PCP: Dr. Membreno Address: Correct on facesheet
[2024-02-21] MEDS: HYDROcodone/APAP 5/325 TABLET 1 TAB PO ×2 (15:54→23:09)
--- NOTE | 2024-02-21 16:33 | PD.IMCONS ---
HPI Data of Consult Requesting Physician: Beckie Grajeda MD Primary Care Provider: Mao Membreno MD Consult Narrative Reason for consult: Nausea vomiting, pain abdomen, heartburn History of present illness: 38 years old male presented to the emergency room with nausea vomiting abdominal pain Patient has end-stage renal disease on peritoneal dialysis which she has not been able to dialysis because of the nausea vomiting and no drainage from the peritoneal catheter CT scan of the abdomen pelvis without contrast showed small bowel obstructive pattern Small bowel follow-through is in progress Patient had an admission of the distal end of the peritoneal catheter dropped laparoscopically done by Dr. Fischer Patient does have a history of hypertension diabetes mellitus type 2 and hyperlipidemia along with end-stage renal disease on peritoneal dialysis cc:: cc: Beckie Grajeda MD Review of Systems Review of Systems Systems Reviewed: All systems reviewed, normal except as documented Past Medical History Surgical History OTHER SURGICAL HX: As in the history of present illness Meds Home Medications and Allergies Home Medications ?Medication ?Instructions ?Recorded ?Confirmed ?Type atorvastatin 20 mg tablet 20 mg PO QPM 08/25/21 02/21/24 History vitamin B complex-vitamin C-folic 1 tab PO QDAY 08/25/21 02/21/24 History acid 0.8 mg tablet (Nephro-Charly) allopurinol 300 mg tablet 300 mg PO QDAY 08/04/23 08/04/23 History ergocalciferol (vitamin D2) 1,250 1,250 mcg PO QWEEK 08/04/23 08/04/23 History mcg (50,000 unit) capsule semaglutide 0.25 mg or 0.5 mg (2 0.5 mg subcut QWEEK 08/04/23 02/21/24 History mg/3 mL) subcutaneous pen injector (Ozempic) pantoprazole 20 mg tablet,delayed 20 mg PO DAILY 12/08/23 02/21/24 History release sodium bicarbonate 650 mg tablet 325 mg PO DAILY 12/08/23 02/21/24 History carvedilol 12.5 mg tablet 25 mg PO BID 02/21/24 02/21/24 History insulin degludec 200 unit/mL (3 25 unit subcut BID 02/21/24 02/21/24 History mL) subcutaneous pen (Tresiba FlexTouch U-200 insulin) Allergies Allergy/AdvReac Type Severity Reaction Status Date / Time No Known Allergies Allergy Verified 02/20/24 07:38 Exam Vital Signs Temp Pulse Resp BP Pulse Ox O2 Del Method O2 Flow Rate 97.5 F 105 H 19 125/92 H 98 Room Air 2 02/21/24 12:29 02/21/24 12:29 02/21/24 12:29 02/21/24 12:29 02/21/24 12:29 02/21/24 12:00 02/21/24 12:09 Constitutional Comments: Chronically ill-appearing Routine Respiratory Exam Comments: Normal to auscultation Routine Abdominal Exam Comments: Distended with hypoactive bowel sounds Results Labs 02/21/24 04:36 02/21/24 04:36 Labs: Short CBC 02/21/24 Range/Units 04:36 WBC 7.1 D (3.8-10.6) Thou/mm3 Hgb 11.8 L D (13.5-16.0) g/dL Hct 36.3 L D (41.0-53.0) % Plt Count 402 D (140-440) Thou/mm3 BMP 02/21/24 04:36 Sodium 128 L Potassium 4.4 Chloride 97 L Carbon Dioxide 19.1 L BUN 79 H Creatinine 9.2 H* Glucose 124 H D Calcium 8.9 D Cardiac Enzymes 02/21/24 Range/Units 04:36 Troponin I < 0.020 (0.0-0.045) ng/mL Liver Function 02/21/24 Range/Units 04:36 Total Bilirubin 0.3 (0.3-1.2) mg/dL AST < 8 (0-34) U/L ALT < 7 L (10-49) U/L Alkaline Phosphatase 46 D (46-116) U/L Albumin 3.7 D (3.5-5.0) gm/dL Assessment and Plan Additional Assessment & Plan Additional Plan: # Nausea vomiting secondary to small bowel obstruction most likely mechanical in the due to abdominal adhesions or PD related # Heartburn secondary to nausea vomiting Plan Will follow the patient closely clinically small bowel follow-through is completed and then we will decide whether he needs an upper endoscopic evaluation or any other invasive GI workup Other medical problems include # End-stage renal disease on peritoneal dialysis # Essential hypertension # Hyperlipidemia Thank you very much for the opportunity to participate in the care of this patient
--- NOTE | 2024-02-21 17:30 | PC.NURSE ---
Dr. Zhang at bedside speaking with patient. Plan for egd 02/21 evening. New orders pending.
[2024-02-21] MEDS: DOCUSATE SOD 100 MG CAPSULE PO (20:59)
[2024-02-21] MEDS: INSULIN LISPRO (AdmeLOG) 1 UNIT/0.01 ML UNIT SC (21:12)
[2024-02-21] MEDS: KETOROLAC INJ 30 MG/ML VIAL 15 MG IVP (21:46)
[2024-02-21] MEDS: HEPARIN SOD INJ 1000 UNIT/ML VIAL 10 ML 5000 UNIT INDWELLCAT (23:00)
[2024-02-22] VITALS (42 sets, daily range): BP systolic 123–171; BP diastolic 90–123; PULSE 61–108; RESP 14–100; TEMP 36.3–37; O2SAT 95–100
--- NOTE | 2024-02-22 | XR_ITS ---
Ultrasound-guided needle placement right internal jugular vein Permanent tunneled dialysis catheter insertion, percutaneous Fluoroscopy AP chest, portable, single view. Date and time of procedure: February 21, 1999 2547 hours INDICATIONS: Renal failure, need for stat and long-term dialysis with permanent tunneled dialysis catheter Informed consent provided Technique: A timeout was completed verifying correct patient, procedure, site, positioning, and special equipment if applicable. The patient was placed in a dependent position appropriate for dialysis catheter placement based on the vein to be cannulated. The patient'sright neck was prepped and draped in sterile fashion. Maximum Sterile Barrier Technique used including cap, mask, sterile gown, sterile gloves, and sterile full body drape. If ultrasound technique used: sterile gel and sterile probe covers. Hand Hygiene performed using proper scrub, soap and water, or alcohol-based hand rub. 1% lidocaine was used to anesthetize the surrounding skin area [employer] portable ultrasound apparatus was utilized to confirm patency of the right internal jugular vein Utilizing ultrasonographic guidance successful 21-gauge puncture into the right internal jugular vein Ultrasound images were recorded and stored. Vessel micropuncture was performed with 21-gauge needle. 0.18 wire guide is introduced into the vein. 0.18 wire is introduced into the vena cava under fluoroscopy. Subcutaneous tunnel formed in the upper chest. Permanent tunneled dialysis catheter placed in the subcutaneous tunnel. Dilators were introduced over the J-wire guide. Tunneled dialysis catheter is introduced through a dilator with venous sheath into the superior vena cava under fluoroscopic guidance. The catheter is sutured in place to the skin and a sterile dressing applied. Perfusion to the extremity distal to the point of catheter insertion is checked and found to be adequate Attending radiologist was present for the entire procedure Estimated blood loss2 cc. The patient tolerated the procedure well and there were no complications Impression: Successful ultrasound-guided needle placement right internal jugular vein Successful permanent tunneled dialysis catheter insertion, percutaneous Fluoroscopy 0.3 minute radiation dose 1.05 milligray 1 spot fluoroscopic chest film. AP chest performed at completion procedure demonstrates satisfactory position dialysis catheter. May use dialysis catheter.
[2024-02-22] MEDS: CHLORpromAZINE INJ 25 MG/ML AMPULE 2ML IV ×3 (02:39→22:23)
[2024-02-22 06:39] LABS: Prothrombin Time 11.1 Seconds (9.0-12.2)
[2024-02-22 06:41] LABS: Basophils % (Auto) 0 % (0-2.5); Eosinophils % (Auto) 0 % (0-10); Hematocrit 28.1 % (41.0-53.0); Hemoglobin 9.4 g/dL (13.5-16.0); Immature Granulocytes % (Auto) 1 % (0-0); Immature Granulocytes Auto 0.05 Thou/mm3 (0.00-0.00); Lymphocytes % (Auto) 17 % (10-50); Mean Corpuscular HGB Conc 33.5 g/dl (31.0-37.0); Mean Corpuscular Hemoglobin 26.9 pg (25.0-35.0); Mean Corpuscular Volume 80 fL (80-100); Monocytes # (Auto) 0.4 Thou/mm3 (0.0-0.8); Monocytes % (Auto) 8 % (0-12); Neutrophils # (Auto) 4.3 Thou/mm3 (1.8-7.7); Neutrophils % (Auto) 74 % (37-80); Nucleated Red Blood Cell % 0 /100 WBC (0); Platelet Count 368 Thou/mm3 (140-440); RDW Standard Deviation 41.8 fL (35.1-43.9); White Blood Count 5.7 Thou/mm3 (3.8-10.6)
[2024-02-22 07:19] LABS: Alanine Aminotransferase < 7 U/L (10-49); Anion Gap 11 (7-16); Aspartate Amino Transferase < 10 U/L (0-34); BUN/Creatinine Ratio 9 Ratio (12-20); Bilirubin,Total 0.2 mg/dL (0.3-1.2); Blood Urea Nitrogen 79 mg/dL (9-23); Carbon Dioxide 16.8 mMol/L (20.0-31.0); Chloride 98 mMol/L (98-107); Creatinine (Component) 8.5 mg/dL (0.6-1.3); Estimated Creatinine Clearance 11.5 mL/min (>60); Glucose 179 mg/dL (74-106); Magnesium 1.7 mg/dL (1.6-2.6); Osmolality,Calculated 281 (275-295); Phosphorous 6.1 mg/dL (2.4-5.1); Potassium 4.3 mMol/L (3.4-5.1); Sodium 126 mMol/L (136-145); Total Protein 5.9 gm/dL (5.7-8.2); eGFR 8 See Note
[2024-02-22 07:20] LABS: Albumin, Serum 3.4 gm/dL (3.5-5.0); Albumin/Globulin Ratio 1.4 (1.2-2.2); Alkaline Phosphatase 40 U/L (46-116); Calcium (Corrected) 8.5 mg/dL (8.5-10.1); Globulin 2.5 gm/dL (2.3-3.5)
[2024-02-22] MEDS: INSULIN LISPRO (AdmeLOG) 1 UNIT/0.01 ML UNIT SC (07:57)
[2024-02-22] MEDS: DOCUSATE SOD 100 MG CAPSULE PO ×2 (09:42→22:08)
[2024-02-22] MEDS: PIPER/TAZO 3.375 GM 50 ML IV ×2 (09:42→22:08)
[2024-02-22] MEDS: INSULIN GLARGINE (Lantus) 5 UNIT/0.05 ML (PER 5 UNITS) SC (09:43)
[2024-02-22] MEDS: PANTOPRAZOLE INJ 40 MG VIAL IVP (09:49)
[2024-02-22 10:56] LABS: Hepatitis A Antibody IgM Non Reactive (Non React); Hepatitis B Core Antibody IgM Non Reactive (Non React); Hepatitis B Surface Ab Reactive (Immune) (Immune); Hepatitis B Surface Antigen Non Reactive (Non React); Hepatitis C Antibody Non Reactive (Non React)
[2024-02-22] MEDS: HYDROcodone/APAP 5/325 TABLET 1 TAB PO (11:40)
--- NOTE | 2024-02-22 11:48 | PC.NURSE ---
consulted Dr. cunha regarging dialysis catheter order, patient needs perm cath insertion
[2024-02-22] MEDS: fentaNYL CIT INJ 50 mCg/ML AMP 2ML 100 MCG IVP (12:31)
[2024-02-22] MEDS: LIDOCAINE INJ PF 1% 30 ML VIAL 10 ML INFL (12:32)
[2024-02-22] MEDS: HEPARIN SOD LOCK SYR 100 UNIT/ML 500 UNIT STFIELD (12:32)
--- NOTE | 2024-02-22 12:39 | PD.SURPROG ---
Documentation for date of: 02/22/24 Subjective Subjective Narrative: Patient is seen and examined. He denies abdominal pain. His peritoneal dialysis catheter was used, however unfortunately has not been draining well Exam Vital Signs Temp Pulse Resp BP Pulse Ox O2 Del Method O2 Flow Rate 97.3 F 84 20 145/107 H 100 Nasal Cannula 3 02/22/24 08:00 02/22/24 12:35 02/22/24 12:35 02/22/24 12:35 02/22/24 12:35 02/22/24 12:35 02/22/24 12:35 Constitutional Constitutional: no acute distress Routine Abdominal Exam Abdominal: Present soft, normoactive bowel sounds and tenderness (Minimal tenderness around incisions. Incisions clean, dry and intact. PD catheter in place and intact); Absent distended Assessment & Plan Assessment Additional comments: Postop day #1 status post laparoscopy with revision of peritoneal dialysis catheter Plan Unfortunately patient's peritoneal dialysis catheter has not been draining well. I explained to him that I cannot offer additional surgical options to improve the functionality of his peritoneal dialysis catheter. He may need to be placed on hemodialysis, remove his peritoneal dialysis catheter and stay off peritoneal dialysis for a few months. He may consider placement of peritoneal dialysis catheter again in few months. He wants to think about it prior to making his decision Procedures Procedures Laparoscopic assisted revision of peritoneal dialysis catheter with removal of intraluminal obstructive material
[2024-02-22] MEDS: HEPARIN SOD INJ 1000 UNIT/ML VIAL 3300 UNIT INDWELLCAT (12:55)
--- NOTE | 2024-02-22 14:32 | PC.NURSE ---
1305 patient is awake, alert, breathing unlabored, s/p tunneled hemodialysis catheter insertion to right IJ, tolerated procedure well, no active bleeding noted, patient transferred back to room 381, bedside report given to Genna HARRIS, lorri to use dialysis catheter per MD.
--- NOTE | 2024-02-22 15:03 | PD.RESPRO ---
Documentation for date of: 02/22/24 Subjective Subjective Interval history: Summary:38-year-old male patient with past medical history of hypertension, diabetes mellitus, hyperlipidemia, persistent tachycardia, ESRD on peritoneal dialysis at home presented to the ED due to 2 days history of nausea and vomiting associated with heartburn. Patient reported 1 week ago his peritoneal dialysis catheter stopped draining for that reason he stopped doing dialysis at home. Patient was admitted for management of ESRD, PD catheter evaluation 02/21/2024, patient was seen and examined at bedside. Overnight patient reported recurrent episodes of head In which she was given promethazine which helped somehow however as soon as the medication wean off his hiccups come back again. He is complaining of mild chest achiness that increased when he take a deep breath and he believes that is because of the persistent hiccups and vomiting. At this time patient is n.p.o. for the peritoneal dialysis evaluation by Dr Fischer today. Vitally patient blood pressure stable at 127/94, heart rate still mildly elevated which is his baseline at 106. Patient reported significant improvement in his general condition. He still on room air does not require any oxygen. All his saline has decreased to baseline after he was rehydrated. Lactic acid decreased from 2.5-1.5 today. His hemoglobin 11.8 and WBCs 7.1, sodium noticed to be 128 we will continue to monitor closely will give him normal saline at 100 mL/h for 1 bag, noticed to have bicarb of 19.1 and BUN of 79 creatinine 9.2, as soon as the patient finishes the procedure will resume his peritoneal dialysis after clearance from the general surgeon Dr. Fischer. Repeat EKG was done and showed no significant changes or ischemic changes in his EKG. 02/22/2024 patient was seen and examined at bedside. Denied any new symptoms. Vitally patient is stable no overnight incidents, yesterday peritoneal dialysis was adjusted by Dr Fischer however a trial for peritoneal dialysis was conducted yesterday however it failed to drain. For that reason, I discussion with the patient regarding initiation of hemodialysis was done, he agreed on temporary placement of dialysis catheter and start hemodialysis to improve his uremic symptoms. Dr Fischer spoke with the patient he recommended to continue on hemodialysis for few months and placement of another dialysis catheter after that.We noticed that his hemoglobin dropped from 11.8-9.4. For that reason we will order for him fecal occult blood Today the patient is n.p.o. for EGD by Dr Zhang to evaluate his persistent heartburn. His symptoms has improved significantly with the pantoprazole at this time. Exam Vital Signs Temp Pulse Resp BP Pulse Ox O2 Del Method O2 Flow Rate 97.3 F 87 16 141/102 H 100 Nasal Cannula 3 02/22/24 08:00 02/22/24 12:55 02/22/24 12:55 02/22/24 12:55 02/22/24 12:55 02/22/24 12:55 02/22/24 12:55 Objective Labs 02/22/24 15:42 02/22/24 05:25 Labs: Laboratory Results - last 24 hr 02/22/24 05:25 WBC 5.7 RBC 3.50 L Hgb 9.4 L D Hct 28.1 L MCV 80 MCH 26.9 MCHC 33.5 RDW Std Deviation 41.8 Plt Count 368 D Neut % (Auto) 74 Lymph % (Auto) 17 Elliott % (Auto) 8 Eos % (Auto) 0 Baso % (Auto) 0 Neut # (Auto) 4.3 Lymph # (Auto) 1.0 Elliott # (Auto) 0.4 Eos # (Auto) 0.0 Baso # (Auto) 0.0 Immature Gran # (Auto) 0.05 H Absolute Nucleated RBC 0.00 Immature Gran % 1 H Nucleated RBC % 0 PT 11.1 INR 1.0 Sodium 126 L Potassium 4.3 Chloride 98 Carbon Dioxide 16.8 L Anion Gap 11 BUN 79 H Creatinine 8.5 H* D Estim Creat Clear Calc 11.5 L eGFR 8 L* BUN/Creatinine Ratio 9 L Glucose 179 H D Calculated Osmolality 281 Calcium 8.0 L Corrected Calcium 8.5 Phosphorus 6.1 H Magnesium 1.7 Total Bilirubin 0.2 L AST < 10 ALT < 7 L Alkaline Phosphatase 40 L Total Protein 5.9 Albumin 3.4 L Globulin 2.5 Albumin/Globulin Ratio 1.4 Hepatitis A IgM Ab Non Reactive Hep Bs Antigen Non Reactive Hep Bs Antibody Reactive (Immune) Hep B Core IgM Ab Non Reactive Hepatitis C Antibody Non Reactive Quality Measures Quality Measures none Assessment & Plan Assessment Current Active Medications: Generic Name Dose Route Start Last Admin Trade Name Freq PRN Reason Stop Dose Admin Acetaminophen 650 mg 02/20/24 22:09 02/20/24 22:21 Acetaminophen 325 Mg Tablet PO 03/21/24 14:42 650 mg Q6H PRN Administration Fever >101.5 and pain 1-3 Hydrocodone Bitart/Acetaminophen 1 tab 02/21/24 12:56 02/21/24 23:09 Hydrocodone/Apap 5/325 Tablet PO 02/26/24 12:48 1 tab Q6HR PRN Administration PAIN SCALE 4-6 (Moderate Chlorpromazine HCl 25 mg 02/20/24 20:22 02/22/24 09:42 Chlorpromazine Inj 25 Mg/Ml Ampule 2ml IV 03/21/24 20:21 25 mg Q6HR PRN Administration HICCUPS Dextrose 25 ml 02/20/24 14:45 Dextrose 50%-Water Inj 50 Ml Syringe IV 03/21/24 14:44 Q15MIN PRN BG 50-70 responsive npo pt Dextrose 50 ml 02/20/24 14:45 Dextrose 50%-Water Inj 50 Ml Syringe IV 03/21/24 14:44 Q15MIN PRN BG <50 OR BG <70 & pt unresponsive Docusate Sodium 100 mg 02/21/24 21:00 02/22/24 09:42 Docusate Sod 100 Mg Capsule PO 03/22/24 20:59 100 mg BID JANET Administration Protocol Glucagon 1 mg 02/20/24 14:45 Glucagon Inj 1 Mg Vial IM Q15MIN PRN BG <70, and no IV access Piperacillin/Tazobactam/Dextrose 50 mls @ 12.5 mls/hr 02/21/24 09:00 02/22/24 09:42 Zosyn IV 02/28/24 08:59 12.5 mls/hr Q12HR JANET Administration Protocol Insulin Glargine 5 unit 02/20/24 15:00 02/22/24 09:43 Insulin Glargine (Lantus) 5 Unit/0.05 Ml (Per 5 Units) SC 03/21/24 14:59 5 unit QDAY JANET Administration Insulin Human Lispro 0 unit 02/21/24 17:00 02/22/24 11:20 Insulin Lispro (Admelog) 1 Unit/0.01 Ml Unit SC 03/22/24 16:59 Not Given ACHS JANET Protocol Morphine Sulfate 2 mg 02/21/24 12:56 01/15/25 19:29 Morphine Sulf Inj 10 Mg/Ml Vial IVP 02/25/24 20:21 2 mg Q6HR PRN Administration PAIN SCALE 7-10 (Severe Ondansetron HCl 4 mg 02/20/24 14:43 02/20/24 16:19 Ondansetron Inj 2 Mg/Ml Inj 2 Ml IV 03/21/24 14:42 4 mg Q6H PRN Administration NAUSEA OR VOMITING Protocol Pantoprazole Sodium 40 mg 02/21/24 09:00 02/22/24 09:49 Pantoprazole Inj 40 Mg Vial IVP 03/22/24 08:59 40 mg QDAY JANET Administration Plan Summary:38-year-old male patient with past medical history of hypertension, diabetes mellitus, hyperlipidemia, persistent tachycardia, ESRD on peritoneal dialysis at home presented to the ED due to 2 days history of nausea and vomiting associated with heartburn. Patient reported 1 week ago his peritoneal dialysis catheter stopped draining for that reason he stopped doing dialysis at home. Patient was admitted for management of ESRD, PD catheter evaluation #ESRD on peritoneal dialysis #Peritoneal dialysis catheter blockage #Symptomatic hyper-uremia #Persistent hiccups Patient is known case of ESRD on peritoneal dialysis daily. Last week he noticed that his tube is not draining and he has missed his sessions of dialysis for the past week. Denies any fever or chills. Patient still produce urine. Noticed to have serum urate level of 67, serum creatinine 5.6 potassium was 4.8. Plan ?IR dialysis catheter insertion ? Hemodialysis today ? Hep panel, hepatitis B core antibodies, hepatitis B Ag antibodies, PPD test ? Referral for convention planner for outpatient dialysis ? Surgical consultation to Dr. Fischer was sent, recommendations appreciated ? Daily CMP ? At this time there is no emergency indication for hemodialysis ? Will start the patient on Zosyn as below ?Chlorpromazine 25 mg 4 times daily as needed #UTI #Sepsis sepsis secondary to UTI A presentation patient presented with WBC count of 14.5, urine analysis showed positive WBC, positive blood, positive bacteria, Plan ? Start the patient on Zosyn 0 02/19/? ? Send for urine culture and blood culture #Severe GERD #Normocytic anemia Patient reported significant heartburn, uses Protonix on daily. 02/21 his epigastric abdominal pain continues to improve, however, we noticed that his hemoglobin decreased from 11.8-9.4. Plan ? Fecal occult blood test ? Repeat CBC at 15:00 today ? Keep the Patient N.P.O. for EGD to Be Done by Dr Zhang ? Protonix 40 mg IV daily ? GI consultation to Dr. Zhang was ordered #History of hypertension Plan ? At this time his blood pressure stable for that reason we will hold on resuming his home medication at this time. #History of diabetes mellitus Plan ? Insulin sliding scale ? Hypoglycemia protocol ? Patient will be n.p.o. after midnight for surgical review of his peritoneal dialysis #History of persistent tachycardia Plan ? Will keep monitoring Med-Tele Hospital Maintenance: FEN: Keep the patient n.p.o., DVT ppx: SCDs GI ppx: Protonix IV lines: PIV Barbour: Barbour's Code status: Full code Dispo: Med telemetry - Patient's plan and care discussed with my attending, Dr. Temi Grajeda MD Internal Medicine PGY-2 Attending Provider Attestation/Addendum Patient seen and examined with resident physician Dr. Peña. Note reviewed, agree with findings and recommendations. PD catheter did not work. Spoke to Dr. Fischer-since catheter was changed 3 times he consider it for now as PD failure. Recommended to switch him to hemodialysis. Patient was changed to hemodialysis. Catheter placed by Dr. Capellan. Patient on dialysis. Tolerating dialysis without any problems. Hemodialysis for 2 hours, 2K, ultrafiltration 0L, Epogen 6000, no heparin ordered. Plan of care discussed with the dialysis nurse. Please see dialysis flowsheet for further details. Next dialysis scheduled for tomorrow Outpatient dialysis will be arranged.
[2024-02-22] MEDS: EPOETIN ALFA-EPBX INJ 10,000 UNIT/ML VIAL (NON-ESRD) 10000 UNIT SC (16:32)
[2024-02-22 16:35] LABS: Basophils % (Auto) 0 % (0-2.5); Eosinophils # (Auto) 0.1 Thou/mm3 (0.0-0.5); Eosinophils % (Auto) 1 % (0-10); Hematocrit 29.2 % (41.0-53.0); Hemoglobin 9.8 g/dL (13.5-16.0); Immature Granulocytes % (Auto) 1 % (0-0); Immature Granulocytes Auto 0.05 Thou/mm3 (0.00-0.00); Lymphocytes # (Auto) 1.2 Thou/mm3 (1.0-4.8); Lymphocytes % (Auto) 24 % (10-50); Mean Corpuscular HGB Conc 33.6 g/dl (31.0-37.0); Mean Corpuscular Hemoglobin 26.6 pg (25.0-35.0); Mean Corpuscular Volume 79 fL (80-100); Monocytes # (Auto) 0.3 Thou/mm3 (0.0-0.8); Monocytes % (Auto) 7 % (0-12); Neutrophils # (Auto) 3.4 Thou/mm3 (1.8-7.7); Neutrophils % (Auto) 67 % (37-80); Nucleated Red Blood Cell % 0 /100 WBC (0); Platelet Count 394 Thou/mm3 (140-440); RDW Standard Deviation 40.2 fL (35.1-43.9); Red Blood Count 3.69 Miln/mm3 (4.50-5.90); White Blood Count 5.1 Thou/mm3 (3.8-10.6)
[2024-02-22] MEDS: HEPARIN SOD INJ 1000 UNIT/ML VIAL 10 ML 3300 UNIT INDWELLCAT (17:17)
[2024-02-22] MEDS: TUBERCULIN PPD INJ 5 UNIT/0.1 ML DOSE ID (17:49)
--- NOTE | 2024-02-22 18:07 | PC.NURSE ---
Call MD to notify the Pt. BP of 145/104. Left the message. will wait for call and any new orders.
--- NOTE | 2024-02-22 21:21 | SUR.PHASEI ---
Pt. arrived to recovery via gurney, eyes closed, VSS, no c/o pain or nausea at this time, lung sounds clear, equal expansion mylene., pd catheter to abdomen, perm cath to right chest, report received from Michelle HARRIS.
--- NOTE | 2024-02-22 21:41 | SUR.PHASEI ---
Pt. sitting up tolerating sips of water.
--- NOTE | 2024-02-22 21:45 | SUR.PHASEI ---
Called and gave report on pt. s/p procedure to Jaja HARRIS on M/S unit.
--- NOTE | 2024-02-22 21:50 | SUR.PHASEI ---
Pt. transferred to room 381 via PÉREZ lyman, no c/o pain or nausea at this time, IV flushed and Jaja nagy RN assumed care of pt.
[2024-02-22] MEDS: hydrALAZINE HCL 10 MG TABLET PO (22:08)
[2024-02-23] VITALS (24 sets, daily range): BP systolic 115–168; BP diastolic 71–109; PULSE 80–130; RESP 16–20; TEMP 36.7–37.8; O2SAT 95–99
[2024-02-23] MEDS: hydrALAZINE HCL 10 MG TABLET PO ×2 (05:32→13:41)
[2024-02-23 05:50] LABS: Basophils % (Auto) 0 % (0-2.5); Eosinophils # (Auto) 0.1 Thou/mm3 (0.0-0.5); Eosinophils % (Auto) 2 % (0-10); Hematocrit 31.1 % (41.0-53.0); Hemoglobin 10.4 g/dL (13.5-16.0); Immature Granulocytes % (Auto) 0 % (0-0); Immature Granulocytes Auto 0.02 Thou/mm3 (0.00-0.00); Lymphocytes # (Auto) 1.2 Thou/mm3 (1.0-4.8); Lymphocytes % (Auto) 17 % (10-50); Mean Corpuscular HGB Conc 33.4 g/dl (31.0-37.0); Mean Corpuscular Hemoglobin 26.4 pg (25.0-35.0); Mean Corpuscular Volume 79 fL (80-100); Monocytes # (Auto) 0.6 Thou/mm3 (0.0-0.8); Monocytes % (Auto) 8 % (0-12); Neutrophils # (Auto) 4.8 Thou/mm3 (1.8-7.7); Neutrophils % (Auto) 72 % (37-80); Nucleated Red Blood Cell % 0 /100 WBC (0); Platelet Count 359 Thou/mm3 (140-440); Red Blood Count 3.94 Miln/mm3 (4.50-5.90); White Blood Count 6.8 Thou/mm3 (3.8-10.6)
[2024-02-23 06:04] LABS: Prothrombin Time 10.9 Seconds (9.0-12.2)
[2024-02-23 06:49] LABS: Alanine Aminotransferase < 7 U/L (10-49); Albumin, Serum 3.7 gm/dL (3.5-5.0); Albumin/Globulin Ratio 1.4 (1.2-2.2); Alkaline Phosphatase 45 U/L (46-116); Anion Gap 10 (7-16); Aspartate Amino Transferase < 8 U/L (0-34); BUN/Creatinine Ratio 8 Ratio (12-20); Bilirubin,Total 0.3 mg/dL (0.3-1.2); Blood Urea Nitrogen 48 mg/dL (9-23); Calcium 8.5 mg/dL (8.3-10.6); Calcium (Corrected) 8.7 mg/dL (8.5-10.1); Chloride 102 mMol/L (98-107); Creatinine (Component) 6.4 mg/dL (0.6-1.3); Estimated Creatinine Clearance 15.3 mL/min (>60); Globulin 2.7 gm/dL (2.3-3.5); Glucose 78 mg/dL (74-106); Magnesium 1.7 mg/dL (1.6-2.6); Osmolality,Calculated 281 (275-295); Phosphorous 4.1 mg/dL (2.4-5.1); Potassium 3.6 mMol/L (3.4-5.1); Sodium 135 mMol/L (136-145); Total Protein 6.4 gm/dL (5.7-8.2); eGFR 11 See Note
[2024-02-23] MEDS: CHLORpromAZINE INJ 25 MG/ML AMPULE 2ML IV ×3 (07:21→22:25)
--- NOTE | 2024-02-23 09:00 | PD.RESPRO ---
Documentation for date of: 02/23/24 Subjective Subjective Interval history: Summary:38-year-old male patient with past medical history of hypertension, diabetes mellitus, hyperlipidemia, persistent tachycardia, ESRD on peritoneal dialysis at home presented to the ED due to 2 days history of nausea and vomiting associated with heartburn. Patient reported 1 week ago his peritoneal dialysis catheter stopped draining for that reason he stopped doing dialysis at home. Patient was admitted for management of ESRD, PD catheter evaluation 02/21/2024, patient was seen and examined at bedside. Overnight patient reported recurrent episodes of head In which she was given promethazine which helped somehow however as soon as the medication wean off his hiccups come back again. He is complaining of mild chest achiness that increased when he take a deep breath and he believes that is because of the persistent hiccups and vomiting. At this time patient is n.p.o. for the peritoneal dialysis evaluation by Dr Fischer today. Vitally patient blood pressure stable at 127/94, heart rate still mildly elevated which is his baseline at 106. Patient reported significant improvement in his general condition. He still on room air does not require any oxygen. All his saline has decreased to baseline after he was rehydrated. Lactic acid decreased from 2.5-1.5 today. His hemoglobin 11.8 and WBCs 7.1, sodium noticed to be 128 we will continue to monitor closely will give him normal saline at 100 mL/h for 1 bag, noticed to have bicarb of 19.1 and BUN of 79 creatinine 9.2, as soon as the patient finishes the procedure will resume his peritoneal dialysis after clearance from the general surgeon Dr. Fischer. Repeat EKG was done and showed no significant changes or ischemic changes in his EKG. 02/22/2024 patient was seen and examined at bedside. Denied any new symptoms. Vitally patient is stable no overnight incidents, yesterday peritoneal dialysis was adjusted by Dr Fischer however a trial for peritoneal dialysis was conducted yesterday however it failed to drain. For that reason, I discussion with the patient regarding initiation of hemodialysis was done, he agreed on temporary placement of dialysis catheter and start hemodialysis to improve his uremic symptoms. Dr Fischer spoke with the patient he recommended to continue on hemodialysis for few months and placement of another dialysis catheter after that.We noticed that his hemoglobin dropped from 11.8-9.4. For that reason we will order for him fecal occult blood Today the patient is n.p.o. for EGD by Dr Zhang to evaluate his persistent heartburn. His symptoms has improved significantly with the pantoprazole at this time. 02/23/2024, patient was seen and examined at bedside. EGD was done yesterday patient was found to have simple gastritis, biopsy was taken we will instruct the patient to follow-up in outpatient for the result. He reported that his gastritis has been well-controlled with the Protonix however he still have mild hiccups that has been improving since he got the hemodialysis. His blood pressure today is 143/107, heart rate of 106, respiratory rate of 18, temperature 98.7, O2 saturation 99 on room air. Hemoglobin is 10.4, BUN today is 48, creatinine 6.4, potassium 3.6, glucose 78, calcium 8.7, phosphorus 4.1, magnesium 1.7. Patient will have dialysis today and will advance his diet to renal diet. Anticipate discharge tomorrow after we check his PPD test results. Exam Vital Signs Temp Pulse Resp BP Pulse Ox O2 Del Method O2 Flow Rate 98.7 F 106 H 18 143/107 H 99 Room Air 3 02/23/24 08:37 02/23/24 08:56 02/23/24 08:37 02/23/24 08:56 02/23/24 08:37 02/23/24 08:00 02/22/24 21:15 Narrative Exam GEN: AOx3, -Greenlandic, able to speak full sentences, lying in bed comfortably HEENT: NC/AC, oral mucosa is dry, neck supple CVS: RRR, S1-S2 present, no murmurs appreciated RESP: PermCath in place, no visible leak, infection, or bleeding CTAB GI: PD dialysis in place, no visible leak, no abdominal tenderness, soft,non distended, normal bowel sounds MSK: able to move all 4 limbs, no lower extremity edema SKIN: warm and dry ATOMIC SPECTROSCOPIST: CN II-XII and Sensation grossly intact. Objective Labs 02/24/24 04:17 02/24/24 04:17 Labs: Laboratory Results - last 24 hr 02/22/24 02/22/24 02/23/24 05:25 15:42 05:30 WBC 5.1 6.8 RBC 3.69 L 3.94 L Hgb 9.8 L 10.4 L Hct 29.2 L 31.1 L MCV 79 L 79 L MCH 26.6 26.4 MCHC 33.6 33.4 RDW Std Deviation 40.2 40.0 Plt Count 394 359 D Neut % (Auto) 67 72 Lymph % (Auto) 24 17 Traverse % (Auto) 7 8 Eos % (Auto) 1 2 Baso % (Auto) 0 0 Neut # (Auto) 3.4 4.8 Lymph # (Auto) 1.2 1.2 Traverse # (Auto) 0.3 0.6 Eos # (Auto) 0.1 0.1 Baso # (Auto) 0.0 0.0 Immature Gran # (Auto) 0.05 H 0.02 H Absolute Nucleated RBC 0.00 0.00 Immature Gran % 1 H 0 Nucleated RBC % 0 0 PT 10.9 INR 1.0 Sodium 135 L Potassium 3.6 D Chloride 102 Carbon Dioxide 23.0 Anion Gap 10 BUN 48 H Creatinine 6.4 H* D Estim Creat Clear Calc 15.3 L eGFR 11 L* BUN/Creatinine Ratio 8 L Glucose 78 D Calculated Osmolality 281 Calcium 8.5 Corrected Calcium 8.7 Phosphorus 4.1 Magnesium 1.7 Total Bilirubin 0.3 AST < 8 ALT < 7 L Alkaline Phosphatase 45 L Total Protein 6.4 Albumin 3.7 Globulin 2.7 Albumin/Globulin Ratio 1.4 Hepatitis A IgM Ab Non Reactive Hep Bs Antigen Non Reactive Hep Bs Antibody Reactive (Immune) Hep B Core IgM Ab Non Reactive Hepatitis C Antibody Non Reactive Quality Measures Quality Measures none Assessment & Plan Assessment Current Active Medications: Generic Name Dose Route Start Last Admin Trade Name Marco PRN Reason Stop Dose Admin Acetaminophen 650 mg 02/20/24 22:09 02/20/24 22:21 Acetaminophen 325 Mg Tablet PO 03/21/24 14:42 650 mg Q6H PRN Administration Fever >101.5 and pain 1-3 Hydrocodone Bitart/Acetaminophen 1 tab 02/21/24 12:56 02/21/24 23:09 Hydrocodone/Apap 5/325 Tablet PO 02/26/24 12:48 1 tab Q6HR PRN Administration PAIN SCALE 4-6 (Moderate Chlorpromazine HCl 25 mg 02/20/24 20:22 02/23/24 07:21 Chlorpromazine Inj 25 Mg/Ml Ampule 2ml IV 03/21/24 20:21 25 mg Q6HR PRN Administration HICCUPS Dextrose 25 ml 02/20/24 14:45 Dextrose 50%-Water Inj 50 Ml Syringe IV 03/21/24 14:44 Q15MIN PRN BG 50-70 responsive npo pt Dextrose 50 ml 02/20/24 14:45 Dextrose 50%-Water Inj 50 Ml Syringe IV 03/21/24 14:44 Q15MIN PRN BG <50 OR BG <70 & pt unresponsive Docusate Sodium 100 mg 02/21/24 21:00 02/22/24 22:08 Docusate Sod 100 Mg Capsule PO 03/22/24 20:59 100 mg BID JANET Administration Protocol Glucagon 1 mg 02/20/24 14:45 Glucagon Inj 1 Mg Vial IM Q15MIN PRN BG <70, and no IV access Heparin Sodium (Porcine) 3,300 unit 02/22/24 15:16 02/22/24 17:17 Heparin Sod Inj 1000 Unit/Ml Vial 10 Ml INDWELLCAT 03/07/24 15:15 3,300 unit PRN PRN Administration DIALYSIS Hydralazine HCl 10 mg 02/22/24 22:00 02/23/24 05:32 Hydralazine Hcl 10 Mg Tablet PO 03/23/24 21:59 10 mg TID JANET Administration Piperacillin/Tazobactam/Dextrose 50 mls @ 12.5 mls/hr 02/21/24 09:00 02/22/24 22:08 Zosyn IV 02/28/24 08:59 12.5 mls/hr Q12HR JANET Administration Protocol Insulin Glargine 5 unit 02/20/24 15:00 02/22/24 09:43 Insulin Glargine (Lantus) 5 Unit/0.05 Ml (Per 5 Units) SC 03/21/24 14:59 5 unit QDAY JANET Administration Insulin Human Lispro 0 unit 02/21/24 17:00 02/23/24 07:29 Insulin Lispro (Admelog) 1 Unit/0.01 Ml Unit SC 03/22/24 16:59 Not Given ACHS [facility] Protocol Morphine Sulfate 2 mg 02/21/24 12:56 02/21/24 19:29 Morphine Sulf Inj 10 Mg/Ml Vial IVP 02/25/24 20:21 2 mg Q6HR PRN Administration PAIN SCALE 7-10 (Severe Ondansetron HCl 4 mg 02/20/24 14:43 02/20/24 16:19 Ondansetron Inj 2 Mg/Ml Inj 2 Ml IV 03/21/24 14:42 4 mg Q6H PRN Administration NAUSEA OR VOMITING Protocol Pantoprazole Sodium 40 mg 02/21/24 09:00 02/22/24 09:49 Pantoprazole Inj 40 Mg Vial IVP 03/22/24 08:59 40 mg QDAY JANET Administration Plan Summary:38-year-old male patient with past medical history of hypertension, diabetes mellitus, hyperlipidemia, persistent tachycardia, ESRD on peritoneal dialysis at home presented to the ED due to 2 days history of nausea and vomiting associated with heartburn. Patient reported 1 week ago his peritoneal dialysis catheter stopped draining for that reason he stopped doing dialysis at home. Patient was admitted for management of ESRD, PD catheter evaluation #ESRD on peritoneal dialysis #Peritoneal dialysis catheter blockage #Symptomatic hyper-uremia #Persistent hiccups Patient is known case of ESRD on peritoneal dialysis daily. Last week he noticed that his tube is not draining and he has missed his sessions of dialysis for the past week. Denies any fever or chills. Patient still produce urine. Noticed to have serum urate level of 67, serum creatinine 5.6 potassium was 4.8. Hep panel came back negative, patient is immunized Plan ? Hemodialysis today., Anticipated discharge tomorrow ?Follow-up on the PPD test results ?Possible discharge tomorrow, will refer the patient to another surgeon for second opinion regarding his peritoneal dialysis. ? Daily CMP ? Will start the patient on Zosyn as below ?Chlorpromazine 25 mg 4 times daily as needed #UTI #Sepsis sepsis secondary to UTI A presentation patient presented with WBC count of 14.5, urine analysis showed positive WBC, positive blood, positive bacteria, Plan ? Start the patient on Zosyn 0 02/19/? ? Send for urine culture and blood culture #Severe GERD #Gastritis most likely secondary to increased BUN #Normocytic anemia #Hiccups Patient reported significant heartburn, uses Protonix on daily. 02/21 his epigastric abdominal pain continues to improve, however, we noticed that his hemoglobin decreased from 11.8-9.4. 02/22, his hemoglobin stable at 10.4, EGD was done showed only gastritis, no active bleed. Plan ? Protonix 40 mg IV daily ? GI consultation to Dr. Zhang was ordered, recommendations appreciated ?Follow-up with the biopsy results in outpatient settings #History of hypertension Plan ? At this time his blood pressure stable for that reason we will hold on resuming his home medication at this time. #History of diabetes mellitus Plan ? Insulin sliding scale ? Hypoglycemia protocol #History of persistent tachycardia Plan ? Will keep monitoring Med-Tele Hospital Maintenance: FEN: Renal diet DVT ppx: SCDs GI ppx: Protonix IV lines: PIV Barbour: Barbour's Code status: Full code Dispo: Med telemetry - Patient's plan and care discussed with my attending, Dr. Temi Grajeda MD Internal Medicine PGY-2 Attending Provider Attestation/Addendum Patient seen and examined with resident physician Dr. Butts. Note reviewed, agree with findings and recommendations. PD cath was changed-still with impaired to drainage. Patient currently seen on dialysis. Tolerating dialysis without any problems. Hemodialysis for 3 hours, 2K, ultrafiltration 0 L, Epogen 6000, no heparin ordered. Plan of care discussed with the dialysis nurse. Please see dialysis flowsheet for further details. PD drain flow very low. Need an appointment for a second opinion with a surgeon in [place]. In the interim we will continue with hemodialysis. Next dialysis scheduled for tomorrow and postdialysis can be discharged. Postdialysis patient had high heart rate. Held hydralazine. Resume his carvedilol.
--- NOTE | 2024-02-23 10:02 | PC.SS ---
Follow up note: Pt is new to out patient dialysis with Dr. [facility]breno [facility]. SS has faxed TB and cather placement information to [facility]. SS spoke to Sheree from [facility] who is aware.
[2024-02-23] MEDS: CATHFLO (ALTEPLASE) INJ 4 MG, Sterile Water 4.4 ML INDWELLCAT (11:11)
[2024-02-23] MEDS: HEPARIN SOD INJ 1000 UNIT/ML VIAL 10 ML 3300 UNIT INDWELLCAT (11:42)
--- NOTE | 2024-02-23 12:29 | PC.NURSE ---
Md been updated for Pt. running 150 HR and Fever 99.9. MD going to order bolus for PT.
[2024-02-23] MEDS: PIPER/TAZO 3.375 GM 50 ML IV ×2 (12:38→20:57)
[2024-02-23] MEDS: SODIUM CHLORIDE 0.9% 500 ML 500 ML 999 ML IV (12:40)
[2024-02-23] MEDS: PANTOPRAZOLE INJ 40 MG VIAL IVP (12:59)
--- NOTE | 2024-02-23 14:38 | ESPR_ITS ---
Documentation for date of: 02/23/24 Subjective Subjective Interval history: Patient evaluated Hemoglobin hematocrit 10.4 and 31.1 Upper endoscopy showed distal esophageal erosions/ulcers gastritis and duodenitis Tolerating diet Exam Vital Signs Temp Pulse Resp BP Pulse Ox O2 Del Method O2 Flow Rate 99.9 F 120 H 18 134/94 H 97 Room Air 3 02/23/24 12:00 02/23/24 13:41 02/23/24 12:00 02/23/24 13:41 02/23/24 12:00 02/23/24 12:00 02/22/24 21:15 Objective Labs 02/23/24 05:30 02/23/24 05:30 Labs: Laboratory Results - last 24 hr 02/22/24 02/23/24 15:42 05:30 WBC 5.1 6.8 RBC 3.69 L 3.94 L Hgb 9.8 L 10.4 L Hct 29.2 L 31.1 L MCV 79 L 79 L MCH 26.6 26.4 MCHC 33.6 33.4 RDW Std Deviation 40.2 40.0 Plt Count 394 359 D Neut % (Auto) 67 72 Lymph % (Auto) 24 17 [place] % (Auto) 7 8 Eos % (Auto) 1 2 Baso % (Auto) 0 0 Neut # (Auto) 3.4 4.8 Lymph # (Auto) 1.2 1.2 [place] # (Auto) 0.3 0.6 Eos # (Auto) 0.1 0.1 Baso # (Auto) 0.0 0.0 Immature Gran # (Auto) 0.05 H 0.02 H Absolute Nucleated RBC 0.00 0.00 Immature Gran % 1 H 0 Nucleated RBC % 0 0 PT 10.9 INR 1.0 Sodium 135 L Potassium 3.6 D Chloride 102 Carbon Dioxide 23.0 Anion Gap 10 BUN 48 H Creatinine 6.4 H* D Estim Creat Clear Calc 15.3 L eGFR 11 L* BUN/Creatinine Ratio 8 L Glucose 78 D Calculated Osmolality 281 Calcium 8.5 Corrected Calcium 8.7 Phosphorus 4.1 Magnesium 1.7 Total Bilirubin 0.3 AST < 8 ALT < 7 L Alkaline Phosphatase 45 L Total Protein 6.4 Albumin 3.7 Globulin 2.7 Albumin/Globulin Ratio 1.4 Impressions Impression: # Distal esophageal erosions/ulcers # Gastritis # Duodenitis Continue current management Assessment & Plan A&P Narrative # Nausea vomiting secondary to small bowel obstruction most likely mechanical in the due to abdominal adhesions or PD related # Heartburn secondary to nausea vomiting Plan Will follow the patient closely clinically small bowel follow-through is completed and then we will decide whether he needs an upper endoscopic evaluation or any other invasive GI workup Other medical problems include # End-stage renal disease on peritoneal dialysis # Essential hypertension # Hyperlipidemia Thank you very much for the opportunity to participate in the care of this patient Time Spent With Patient Time: Total time spent is greater than 50% in coordination of care (as documented) at patient's floor/unit and/or counseling patient:
[2024-02-23] MEDS: MORPHINE SULF INJ 10 MG/ML VIAL 2 MG IVP (15:50)
[2024-02-23] MEDS: carVEDILOL 12.5 MG TABLET 25 MG PO (16:02)
[2024-02-23] MEDS: DOCUSATE SOD 100 MG CAPSULE PO (20:25)
[2024-02-23] MEDS: cefTRIAXone/D5w 1gm IV premix 50 ML IV (20:26)
[2024-02-23] MEDS: INSULIN LISPRO (AdmeLOG) 1 UNIT/0.01 ML UNIT SC (21:03)
[2024-02-23] MEDS: HYDROcodone/APAP 5/325 TABLET 1 TAB PO (21:10)
[2024-02-24] VITALS (9 sets, daily range): BP systolic 122–135; BP diastolic 83–100; PULSE 95–117; RESP 16–98; TEMP 36.5–37; O2SAT 99
[2024-02-24 05:20] LABS: Basophils % (Auto) 0 % (0-2.5); Eosinophils # (Auto) 0.1 Thou/mm3 (0.0-0.5); Eosinophils % (Auto) 1 % (0-10); Hematocrit 32.4 % (41.0-53.0); Hemoglobin 10.7 g/dL (13.5-16.0); Immature Granulocytes % (Auto) 1 % (0-0); Immature Granulocytes Auto 0.08 Thou/mm3 (0.00-0.00); Lymphocytes # (Auto) 1.7 Thou/mm3 (1.0-4.8); Lymphocytes % (Auto) 12 % (10-50); Mean Corpuscular Hemoglobin 26.2 pg (25.0-35.0); Mean Corpuscular Volume 79 fL (80-100); Monocytes # (Auto) 0.8 Thou/mm3 (0.0-0.8); Monocytes % (Auto) 6 % (0-12); Neutrophils % (Auto) 80 % (37-80); Nucleated Red Blood Cell % 0 /100 WBC (0); Platelet Count 372 Thou/mm3 (140-440); RDW Standard Deviation 41.7 fL (35.1-43.9); Red Blood Count 4.08 Miln/mm3 (4.50-5.90); White Blood Count 13.7 Thou/mm3 (3.8-10.6)
[2024-02-24 06:43] LABS: Alanine Aminotransferase 8 U/L (10-49); Albumin, Serum 3.3 gm/dL (3.5-5.0); Albumin/Globulin Ratio 1.2 (1.2-2.2); Alkaline Phosphatase 51 U/L (46-116); Anion Gap 12 (7-16); Aspartate Amino Transferase 11 U/L (0-34); BUN/Creatinine Ratio 6 Ratio (12-20); Bilirubin,Total 0.3 mg/dL (0.3-1.2); Blood Urea Nitrogen 31 mg/dL (9-23); Calcium 8.2 mg/dL (8.3-10.6); Calcium (Corrected) 8.8 mg/dL (8.5-10.1); Carbon Dioxide 22.2 mMol/L (20.0-31.0); Chloride 101 mMol/L (98-107); Estimated Creatinine Clearance 19.6 mL/min (>60); Globulin 2.8 gm/dL (2.3-3.5); Glucose 98 mg/dL (74-106); Magnesium 1.6 mg/dL (1.6-2.6); Osmolality,Calculated 276 (275-295); Phosphorous 3.2 mg/dL (2.4-5.1); Potassium 3.4 mMol/L (3.4-5.1); Sodium 135 mMol/L (136-145); Total Protein 6.1 gm/dL (5.7-8.2); eGFR 14 See Note
[2024-02-24] MEDS: NIFEdipine XL 30 MG TABCR 60 MG PO (09:38)
[2024-02-24] MEDS: carVEDILOL 12.5 MG TABLET 25 MG PO (09:39)
[2024-02-24] MEDS: INSULIN GLARGINE (Lantus) 5 UNIT/0.05 ML (PER 5 UNITS) SC (09:40)
--- NOTE | 2024-02-24 09:40 | ESDS_ITS ---
Planned Discharge Date 02/24/24 DS: Providers Provider Date of admission: 02/20/24 14:40 Primary care physician: Mao Membreno MD Admitting Provider: Beckie Grajeda MD Attending Provider on Admission: Beckie Grajeda MD Consults: 02/20/24 13:36 Consult to General Surgery Stat Comment: Consulting Provider: Dane Fischer 02/20/24 13:37 Consult to Nephrology Stat Comment: Consulting Provider: Mao Membreno 02/21/24 06:44 Consult to Gastroenterology Routine Comment: hiccups, gastritis Consulting Provider: Erinn Zhang 02/22/24 08:51 Referral Discharge Planning Routine Comment: New O/P hemodialysis Attending Provider on DC: Mao Membreno MD Discharging Provider: Mao Membreno MD Discharge Diagnosis Discharge Diagnosis (1) Other mechanical complication of intraperitoneal dialysis catheter, initial encounter: Status: Acute Assessment & Plan: 38-year-old male patient with past medical history of hypertension, diabetes mellitus, hyperlipidemia, persistent tachycardia, ESRD on peritoneal dialysis at home presented to the ED due to 2 days history of nausea and vomiting associated with heartburn. Patient reported 1 week ago his peritoneal dialysis catheter stopped draining for that reason he stopped doing dialysis at home. Patient was admitted for management of ESRD, PD catheter evaluation #ESRD on peritoneal dialysis #Peritoneal dialysis catheter blockage #Symptomatic hyper-uremia #Persistent hiccups Patient is known case of ESRD on peritoneal dialysis daily. Due to catheter malfunction was brought and was replaced with Dr Fischer. However catheter did not work. Had to place a right IJ PermCath continue hemodialysis sessions were given. Patient was having significant hiccups-possibly related to uremia as he did not receive dialysis for 5 days. Today after tPA was placed his catheter seems to be able to be drained. Will follow-up with PD nurse on Monday see if the catheter will be functioning. In the interim started him on hemodialysis. Patient also has appointment with a surgeon in [place] for a second opinion. #??UTI Sepsis resolved. Urine cultures, blood cultures negative. No need for any antibiotics. #Severe GERD #Gastritis most likely secondary to increased BUN #Normocytic anemia #Hiccups Patient reported significant heartburn, uses Protonix on daily. 02/21 his epigastric abdominal pain continues to improve, however, we noticed that his hemoglobin decreased from 11.8-9.4. 02/22, his hemoglobin stable at 10.4, EGD was done showed only gastritis, no active bleed. Plan ? Protonix 40 mg p.o. daily. Will give him the results of the biopsy as an outpatient #History of hypertension resume all his home medications except hydralazine #History of diabetes mellitus Continue with home medications #History of persistent tachycardia Continue with carvedilol Problem List Completed Was Problem List Reviewed/Reconciled?: Yes Hospital Course Hospital Course Hospital course: 38-year-old male patient with past medical history of hypertension, diabetes mellitus, hyperlipidemia, persistent tachycardia, ESRD on peritoneal dialysis at home presented to the ED due to 2 days history of nausea and vomiting associated with heartburn. Patient reported 1 week ago his peritoneal dialysis catheter stopped draining for that reason he stopped doing dialysis at home. Patient was admitted for management of ESRD, PD catheter evaluation 02/21/2024, patient was seen and examined at bedside. Overnight patient reported recurrent episodes of head In which she was given promethazine which helped somehow however as soon as the medication wean off his hiccups come back again. He is complaining of mild chest achiness that increased when he take a deep breath and he believes that is because of the persistent hiccups and vomiting. At this time patient is n.p.o. for the peritoneal dialysis evaluation by Dr Fischer today. Vitally patient blood pressure stable at 127/94, heart rate still mildly elevated which is his baseline at 106. Patient reported significant improvement in his general condition. He still on room air does not require any oxygen. All his saline has decreased to baseline after he was rehydrated. Lactic acid decreased from 2.5-1.5 today. His hemoglobin 11.8 and WBCs 7.1, sodium noticed to be 128 we will continue to monitor closely will give him normal saline at 100 mL/h for 1 bag, noticed to have bicarb of 19.1 and BUN of 79 creatinine 9.2, as soon as the patient finishes the procedure will resume his peritoneal dialysis after clearance from the general surgeon Dr. Fischer. Repeat EKG was done and showed no significant changes or ischemic changes in his EKG. 02/22/2024 patient was seen and examined at bedside. Denied any new symptoms. Vitally patient is stable no overnight incidents, yesterday peritoneal dialysis was adjusted by Dr Fischer however a trial for peritoneal dialysis was conducted yesterday however it failed to drain. For that reason, I discussion with the patient regarding initiation of hemodialysis was done, he agreed on temporary placement of dialysis catheter and start hemodialysis to improve his uremic symptoms. Dr Fischer spoke with the patient he recommended to continue on hemodialysis for few months and placement of another dialysis catheter after that.We noticed that his hemoglobin dropped from 11.8-9.4. For that reason we will order for him fecal occult blood Today the patient is n.p.o. for EGD by Dr Zhang to evaluate his persistent heartburn. His symptoms has improved significantly with the pantoprazole at this time. 02/23/2024, patient was seen and examined at bedside. EGD was done yesterday patient was found to have simple gastritis, biopsy was taken we will instruct the patient to follow-up in outpatient for the result. He reported that his gastritis has been well-controlled with the Protonix however he still have mild hiccups that has been improving since he got the hemodialysis. His blood pressure today is 143/107, heart rate of 106, respiratory rate of 18, temperature 98.7, O2 saturation 99 on room air. Hemoglobin is 10.4, BUN today is 48, creatinine 6.4, potassium 3.6, glucose 78, calcium 8.7, phosphorus 4.1, magnesium 1.7. Patient will have dialysis today and will advance his diet to renal diet. Anticipate discharge tomorrow after we check his PPD test results. 02/24/2024 after alteplase was placed we were able to aspirate fluid from peritoneal dialysis catheter. At this point hold off on hemodialysis today. He is going to follow-up with PD nurse on Monday to see if the catheter will work. Patient also had an appointment for a second opinion with a surgeon in [place]. If not patient has a right IJ PermCath for hemodialysis. Medications/labs reviewed. He is going to be discharged today. Outpatient dialysis arrangements made. PPD negative. No further fevers. His white count improved. Tachycardia also improved with carvedilol. Will hold off on hydralazine. Blood pressure 123/85, heart rate 95. Status at Discharge Cognitive/behavioral status at discharge: Stable Functional status at discharge: independent ambulation Overall status at discharge: patient is back to baseline Time Spent with Patient Time attestation: Total time spent providing and/or coordinating discharge services: 35 minutes Exam Vital Signs Temp Pulse Resp BP Pulse Ox O2 Del Method O2 Flow Rate 36.8 C 95 17 123/85 H 99 Room Air 3 02/24/24 16:00 02/24/24 16:00 02/24/24 16:00 02/24/24 16:00 02/24/24 16:00 02/24/24 16:00 02/22/24 21:15 Narrative Exam GENERAL APPEARANCE: Patient seems to be comfortable, adequately hydrated and nourished. HEENT: EOMI, PERRLA NECK: Neck supple, no JVD or bruit CARDIOVASCULAR: Heart regular, no murmurs LUNGS/CHEST: Chest clear to auscultation. No rales, rhonchi, wheezing ABDOMEN: Soft, nontender, nondistended. No masses. Normal bowel sounds. S/p PD catheter EXTREMITIES: No edema, clubbing or cyanosis. SKIN: Skin exam normal without any rashes. Right IJ PermCath MUSCULOSKELETAL: Musculoskeletal exam normal PSYCHIATRIC: Normal mood, affect LYMPHATICS: No lymphadenopathy noted NEUROLOGICAL : No neurological deficits Discharge Plan Plan Patient Disposition: HOME (Self Care) Patient condition on transfer: Stable Prescriptions/Referrals Prescriptions/Med Rec: Continued nifedipine 60 mg tablet extended release 60 mg PO QDAY Qty: 30 0RF atorvastatin 20 mg tablet 20 mg PO QPM Patient Comments: TAKE 1 TABLET BY MOUTH EVERYDAY AT BEDTIME Nephro-Charly 0.8 mg tablet 1 tab PO QDAY Patient Comments: TAKE 1 TABLET BY MOUTH EVERY DAY pantoprazole 20 mg tablet,delayed release (DR/EC) 20 mg PO DAILY Patient Comments: TAKE 1 TABLET BY MOUTH ONCE DAILY AM sodium bicarbonate 650 mg tablet 325 mg PO DAILY Patient Comments: TAKE 1 TABLET BY MOUTH ONCE DAILY allopurinol 300 mg tablet 300 mg PO QDAY Patient Comments: TAKE 1 TABLET BY MOUTH ONCE DAILY ergocalciferol (vitamin D2) 1,250 mcg (50,000 unit) capsule 1,250 mcg PO QWEEK Patient Comments: TAKE 1 CAPSULE BY MOUTH ONCE A WEEK Ozempic 0.25 mg or 0.5 mg (2 mg/3 mL) pen injector 0.5 mg SUBCUT QWEEK Patient Comments: INJECT 0.25 MG SUBCUTANEOUSLY ONCE A WEEK FOR 4 WEEKS THEN 0.5MG ONCE A WEEK insulin degludec [Tresiba FlexTouch U-100] 100 unit/mL (3 mL) insulin pen 25 unit subcut QPM Qty: 15 3RF (DME) pen needle, diabetic [Pen Needle] 29 gauge x 1/2 needle See Rx Instructions .Route Qty: 100 3RF Rx Instructions: As directed (DME) FreeStyle Wei 3 [place] Misc See Rx Instructions .Route Qty: 1 0RF Rx Instructions: As directed (DME) FreeStyle Wei 3 Sensor Device See Rx Instructions .Route Qty: 2 3RF Rx Instructions: As directed Ozempic 0.25 mg or 0.5 mg (2 mg/3 mL) pen injector 0.25 mg subcut QWEEK Qty: 3 3RF Rx Instructions: for 4 weeks benazepril 10 mg tablet 10 mg PO QDAY Qty: 30 3RF carvedilol 12.5 mg tablet 25 mg PO BID Rx Instructions: must administer with a meal/food insulin degludec [Tresiba FlexTouch U-200] 200 unit/mL (3 mL) Insulin Pen 25 unit SUBCUT BID Discontinued hydralazine 50 mg tablet 50 mg PO TID Qty: 90 3RF Referrals: Mao Membreno MD [Primary Care Provider] - Patient/Caregiver Discharge Instructions Discharge Activity: activity as tolerated Print Language: Persian Activity Restrictions/Additional Instructions: f/u with me in 1week f/y with Sheree- next week Stand Alone Forms: Jennifer Award Info., Patient Portal Info Letter, DC from Surgery Discharge Order Discharge Orders: Discharge (Routine); Ordered 02/24/24 Ordered By: Beckie Grajeda
[2024-02-24] MEDS: PIPER/TAZO 3.375 GM 50 ML IV (09:41)
[2024-02-24] MEDS: PANTOPRAZOLE INJ 40 MG VIAL IVP (09:41)
--- NOTE | 2024-02-24 11:52 | PC.NURSE ---
Pt. brought to dialysis for HD. PD catheter accessed and able to aspirate 40 cc of dark red fluid. Dr Membreno called and HD cancelled. Pt to call PD RN as clinic for instructions. Instilled 20 cc NS with [address] Membreno.
[2024-02-24] MEDS: SODIUM CHLORIDE 0.9% IV (11:57)
[2024-02-24] MEDS: INSULIN LISPRO (AdmeLOG) 1 UNIT/0.01 ML UNIT SC (11:57)
[2024-02-24] MEDS: CHLORPROMAZINE IV (11:57)
--- NOTE | 2024-02-24 15:51 | ESPR_ITS ---
Documentation for date of: 02/24/24 Subjective Subjective Interval history: Patient evaluated Some dry heaves Exam Vital Signs Temp Pulse Resp BP Pulse Ox O2 Del Method O2 Flow Rate 98.2 F 98 17 133/100 H 99 Room Air 3 02/24/24 12:00 02/24/24 12:00 02/24/24 12:00 02/24/24 12:00 02/24/24 12:00 02/24/24 12:00 02/22/24 21:15 Objective Labs 02/24/24 04:17 02/24/24 04:17 Labs: Laboratory Results - last 24 hr 02/24/24 04:17 WBC 13.7 H D RBC 4.08 L Hgb 10.7 L Hct 32.4 L MCV 79 L MCH 26.2 MCHC 33.0 RDW Std Deviation 41.7 Plt Count 372 Neut % (Auto) 80 Lymph % (Auto) 12 [place] % (Auto) 6 Eos % (Auto) 1 Baso % (Auto) 0 Neut # (Auto) 11.0 H Lymph # (Auto) 1.7 [place] # (Auto) 0.8 Eos # (Auto) 0.1 Baso # (Auto) 0.0 Immature Gran # (Auto) 0.08 H Absolute Nucleated RBC 0.00 Immature Gran % 1 H Nucleated RBC % 0 Sodium 135 L Potassium 3.4 Chloride 101 Carbon Dioxide 22.2 Anion Gap 12 BUN 31 H Creatinine 5.0 H* D Estim Creat Clear Calc 19.6 L eGFR 14 L* BUN/Creatinine Ratio 6 L Glucose 98 Calculated Osmolality 276 Calcium 8.2 L Corrected Calcium 8.8 Phosphorus 3.2 Magnesium 1.6 Total Bilirubin 0.3 AST 11 ALT 8 L Alkaline Phosphatase 51 Total Protein 6.1 Albumin 3.3 L Globulin 2.8 Albumin/Globulin Ratio 1.2 Impressions Impression: # Distal esophageal ulcers/erosions # Gastritis # Esophagitis Continue current management Assessment & Plan A&P Narrative # Nausea vomiting secondary to small bowel obstruction most likely mechanical in the due to abdominal adhesions or PD related # Heartburn secondary to nausea vomiting Plan Will follow the patient closely clinically small bowel follow-through is completed and then we will decide whether he needs an upper endoscopic evaluation or any other invasive GI workup Other medical problems include # End-stage renal disease on peritoneal dialysis # Essential hypertension # Hyperlipidemia Thank you very much for the opportunity to participate in the care of this patient Time Spent With Patient Time: Total time spent is greater than 50% in coordination of care (as documented) at patient's floor/unit and/or counseling patient:
== END 2024-02-24 17:35 | disposition home or self-care (01) | DRG 907 ==
LOC: SERX 14:42 → SERHOLD 14:50 → S3SX 19:22
PROVIDERS: Nurse Practitioner Primary Care; Specialist; Surgery; Admitting Provider Student in an Organized Health Care Education/Training Program; Emergency Provider Emergency Medicine; PCP Internal Medicine; Visit Provider Student in an Organized Health Care Education/Training Program
PROC: 0WHG43Z Insertion of Infusion Device into Peritoneal Cavity, Percutaneous Endoscopic Approach (ICD-10-PCS; CPT 49324; principal; 2024-02-21 11:00)
PROC: (CPT 43239; principal; 2024-02-22 19:30)
DX: T85.611A Breakdown (mechanical) of intraperitoneal dialysis catheter, initial encounter (principal); A41.9 Sepsis, unspecified organism; N18.6 End stage renal disease; I12.0 Hypertensive chronic kidney disease with stage 5 chronic kidney disease or end stage renal disease; N39.0 Urinary tract infection, site not specified; K22.10 Ulcer of esophagus without bleeding; E78.5 Hyperlipidemia, unspecified; E11.22 Type 2 diabetes mellitus with diabetic chronic kidney disease; Y81.2 Prosthetic and other implants, materials and accessory general- and plastic-surgery devices associated with adverse incidents; K21.9 Gastro-esophageal reflux disease without esophagitis; D63.1 Anemia in chronic kidney disease; K29.70 Gastritis, unspecified, without bleeding; K29.80 Duodenitis without bleeding; R06.6 Hiccough
CPT/HCPCS: 36415; 71046; 74176; 74250; 76937; 77001; 80053; 80074; 81001; 82010; 83605; 83690; 83735; 84100; 84443; 84484; 85025; 85610; 85730; 86580; 86706; 87040; 87086; 87400; 93005; 93225; 96372; 96374; 96375; 99285; A4216; A4217; A4649; C1750; C1894; J0696; J1100; J1642; J1643; J1815; J1885; J2250; J2270; J2405; J2470; J2543; J2704; J2997; J3010; J3230; J3490; J7030; J7040; J7050; J7120; Q5106; Q9963; A9270; J1805

== ENCOUNTER 2024-03-11 01:36 | Emergency (ER) | payer BC, OTHER, SELFPAY ==
[2024-03-11] VITALS (9 sets, daily range): BP systolic 78–166; BP diastolic 53–83; PULSE 98–118; RESP 14–21; TEMP 36.4–37.1; O2SAT 95–100; BMI 21.7
--- NOTE | 2024-03-11 02:03 | EKG_ITS ---
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
--- NOTE | 2024-03-11 02:03 | XR_ITS ---
Examination: PA lateral chest 2 views TECHNIQUE: Upright PA and lateral chest 2 views Presented time: March 11, 2024 at 0210 hours INDICATIONS: Chest pain today. FINDINGS: Normal heart size No lobar pneumonia or pulmonary edema Minor blunting of the costophrenic angles Right internal jugular dialysis catheter tip satisfactory position IMPRESSION: No pneumonia or pulmonary edema
--- NOTE | 2024-03-11 02:05 | PD.EDRME ---
Rapid Medical Screening Exam E Arrival date/time: 03/11/24 01:36 38-year-old male past medical history of ESRD usually on peritoneal dialysis but recently started hemodialysis presents emergency department complaining of diffuse abdominal pain with vomiting since yesterday. Chief Complaint: Nausea/Vomiting/Diarrhea Vital signs: Vital Signs Temperature 97.6 F 03/11/24 01:57 Pulse Rate 118 H 03/11/24 01:57 Respiratory Rate 18 03/11/24 01:57 Blood Pressure 86/58 L 03/11/24 01:57 Pulse Oximetry (%) 98 03/11/24 01:57 Oxygen Delivery Method Room Air 03/11/24 01:57 Vital signs reviewed by provider: Yes
[2024-03-11 02:59] LABS: Basophils % (Auto) 0 % (0-2.5); Eosinophils # (Auto) 0.1 Thou/mm3 (0.0-0.5); Eosinophils % (Auto) 1 % (0-10); Hematocrit 34.4 % (41.0-53.0); Hemoglobin 11.6 g/dL (13.5-16.0); Immature Granulocytes % (Auto) 3 % (0-0); Lymphocytes # (Auto) 1.6 Thou/mm3 (1.0-4.8); Lymphocytes % (Auto) 13 % (10-50); Mean Corpuscular HGB Conc 33.7 g/dl (31.0-37.0); Mean Corpuscular Hemoglobin 26.4 pg (25.0-35.0); Mean Corpuscular Volume 78 fL (80-100); Monocytes % (Auto) 8 % (0-12); Neutrophils # (Auto) 9.2 Thou/mm3 (1.8-7.7); Neutrophils % (Auto) 76 % (37-80); Nucleated Red Blood Cell % 0 /100 WBC (0); Platelet Count 388 Thou/mm3 (140-440); RDW Standard Deviation 43.5 fL (35.1-43.9); Red Blood Count 4.39 Miln/mm3 (4.50-5.90); White Blood Count 12.2 Thou/mm3 (3.8-10.6)
[2024-03-11 03:22] LABS: Partial Thromboplastin Time 31.5 Seconds (22.0-36.0); Prothrombin Time 10.9 Seconds (9.0-12.2)
[2024-03-11 03:24] LABS: Alanine Aminotransferase 18 U/L (10-49); Albumin/Globulin Ratio 1.1 (1.2-2.2); Alkaline Phosphatase 60 U/L (46-116); Anion Gap 14 (7-16); Aspartate Amino Transferase 23 U/L (0-34); BUN/Creatinine Ratio 8 Ratio (12-20); Bilirubin,Total 0.4 mg/dL (0.3-1.2); Blood Urea Nitrogen 59 mg/dL (9-23); Calcium 8.7 mg/dL (8.3-10.6); Calcium (Corrected) 8.7 mg/dL (8.5-10.1); Carbon Dioxide 20.3 mMol/L (20.0-31.0); Chloride 92 mMol/L (98-107); Creatinine (Component) 7.8 mg/dL (0.6-1.3); Estimated Creatinine Clearance 11.7 mL/min (>60); Globulin 3.5 gm/dL (2.3-3.5); Glucose 226 mg/dL (74-106); Lipase 121 U/L (12-53); Magnesium 1.7 mg/dL (1.6-2.6); Osmolality,Calculated 276 (275-295); Potassium 4.6 mMol/L (3.4-5.1); Sodium 126 mMol/L (136-145); Total Protein 7.5 gm/dL (5.7-8.2); Troponin I < 0.002 ng/mL (0.0-0.045); eGFR 8 See Note
[2024-03-11 03:45] LABS: B-Type Natriuretic Peptide < 20 pg/mL (0-100)
[2024-03-11 04:22] LABS: Collection Type, Urine Clean Catch; RBC,Urine 0 /hpf (0-3); Squamous Epithelial Cell,Urine 0 /hpf (0-5)
[2024-03-11 05:10] LABS: Bacteria,Urine Rare; Bilirubin,Urine Negative (Negative); Blood,Urine Negative (Negative); Clarity,Urine Turbid (Clear/Hazy); Color,Urine Yellow (Lt Yel-Yel); Glucose, Urine Negative (Negative); Ketones,Urine Negative (Negative); Leukocyte Esterase,Urine Positive (Negative); Nitrite,Urine Negative (Negative); PH,Urine 5.5 (5.0-7.0); Protein,Urine 2+ (Neg - Trace); Specific Gravity,Urine 1.011 (1.001-1.035); Urobilinogen,Urine Negative mg/dL (0.0-1.0); WBC,Urine 12 /hpf (0-5)
[2024-03-11] MEDS: METOCLOPRAMIDE INJ 5 MG/ML VIAL 2 ML 10 MG IVP (08:04)
[2024-03-11] MEDS: DiphenhydrAMINE INJ 50 MG/ML VIAL 25 MG IV ×2 (08:08→10:05)
[2024-03-11] MEDS: LIDOCAINE VISCOUS 2% 15 ML UDC PO (08:09)
[2024-03-11] MEDS: MG HYD/AL HYD/SIME (Maalox Reg) SUSP 30 ML UDC PO (08:09)
--- NOTE | 2024-03-11 10:00 | PC.NURSE ---
PT GIVEN CHOCOLATE PUDDING SNACK FOR PO CHALLENGE BY DR. ALLEN. PT TOLERATING PO CHALLENGE. PT DENIES ANY N/V BUT STILL REPORTS HAVING HICCUPS. DR. ALLEN MADE AWARE.
--- NOTE | 2024-03-11 10:13 | PD.EDNV ---
Nausea/Vomit./Diarrhea-RME/HPI General Chief complaint: Nausea/Vomiting/Diarrhea Stated complaint: nausea, vomiting Time Seen by Provider: 03/11/24 02:44 Arrival date/time: 03/11/24 01:36 RME / HPI RME / HPI Narrative: 03/11/24 01:36 38-year-old male past medical history of ESRD usually on peritoneal dialysis but recently started hemodialysis presents emergency department complaining of diffuse abdominal pain with vomiting since yesterday. DR. ALLEN MAIN ED EVALUATION 38 year old male with history of ESRD on peritoneal dialysis although in the last 2 weeks undergoing hemodialysis, hypertension, diabetes, hyperlipidemia presents to the ED for evaluation of nausea, vomiting, and abdominal pain beginning yesterday. Pain described as burning in sensation that is located diffusely but most severe over epigastric region. Accompanied by frequent belching. mentioned since starting hemodialysis two weeks ago due to blocked PD catheter, the patients abdominal pain is gradually worsening. states patient did have an EGD performed during his hospitalization 2 weeks showing healed ulcers, no active ulcers. Denies fevers or chills. No other complaints reported. Related Data Home Medications ?Medication ?Instructions ?Recorded ?Confirmed atorvastatin 20 mg tablet 20 mg PO QPM 08/25/21 02/21/24 vitamin B complex-vitamin C-folic 1 tab PO QDAY 08/25/21 02/21/24 acid 0.8 mg tablet (Nephro-Charly) allopurinol 300 mg tablet 300 mg PO QDAY 08/04/23 08/04/23 ergocalciferol (vitamin D2) 1,250 1,250 mcg PO QWEEK 08/04/23 08/04/23 mcg (50,000 unit) capsule semaglutide 0.25 mg or 0.5 mg (2 0.5 mg subcut QWEEK 08/04/23 02/21/24 mg/3 mL) subcutaneous pen injector (Ozempic) pantoprazole 20 mg tablet,delayed 20 mg PO DAILY 12/08/23 02/21/24 release sodium bicarbonate 650 mg tablet 325 mg PO DAILY 12/08/23 02/21/24 carvedilol 12.5 mg tablet 25 mg PO BID 02/21/24 02/21/24 insulin degludec 200 unit/mL (3 25 unit subcut BID 01/15/25 01/15/25 mL) subcutaneous pen (Tresiba FlexTouch U-200 insulin) Previous Rx's ?Medication ?Instructions ?Recorded nifedipine 60 mg tablet,extended 60 mg PO QDAY #30 tabs 03/16/20 release benazepril 10 mg tablet 10 mg PO QDAY #30 tabs 08/11/23 blood-glucose meter,continuous #1 ea 08/11/23 (FreeStyle Wei 3 [place]) blood-glucose sensor (FreeStyle #2 ea 08/11/23 Wei 3 Sensor device) insulin degludec 100 unit/mL (3 25 unit (0.25 mL) subcut QPM #15 mL 08/11/23 mL) subcutaneous pen (Tresiba FlexTouch U-100 insulin) pen needle, diabetic 29 gauge x #100 ea 08/11/2302/07 (Pen Needle) semaglutide 0.25 mg or 0.5 mg (2 0.25 mg (0.368 mL) subcut QWEEK #3 08/11/23 mg/3 mL) subcutaneous pen injector mL (Ozempic) metoclopramide HCl 10 mg tablet 10 mg PO BID PRN nausea and 03/11/24 (Reglan) vomiting #6 tabs Allergies Allergy/AdvReac Type Severity Reaction Status Date / Time No Known Allergies Allergy Verified 02/20/24 07:38 Review of Systems Review of Systems Narrative Review of Systems: Gen: No fever, no chills, no weight loss EYES: No discharge, no visual changes, no pain HEENT: No ear pain, no congestion, no sore throat PULM: no shortness of breath, no cough, no congestion CV: No chest pain, no dyspnea on exertion, no palpitations, no chest tightness GI: +nausea, +vomiting, no diarrhea, +pain, +belching, no constipation : No frequency, no urgency,? no dysuria Musc/skel: No joint pain, no back pain Skin: No rash, no ecchymosis, no lesions Neuro: No weakness, no headache Past Medical History Past Medical History NEUROLOGIC: Positive Migraine CARDIAC: Positive Cardiac Disorders and Hypertension RESPIRATORY: Positive Asthma and Pneumonia GENITOURINARY: Positive Renal Disease ENDOCRINE: Positive Endocrine Disorders and Diabetes Mellitus Type 2 PSYCHO/SOCIAL: Positive Depression and Anxiety OTHER HISTORY: Positive Chicken Pox Family History FAMILY HISTORY: Positive Family Respiratory Disorders, Family Cardiac Disorders and Family Cancer Surgical History SURGICAL: Positive Abdominal Surgery Social History SMOKING STATUS: Never smoker SECOND HAND EXPOSURE: No SUBSTANCE USE: does not use ED Exam Narrative Physical exam: GENERAL APPEARANCE: AxOx4, nontoxic appearing HEENT: NC, AT. MMM. EOMI, clear conjunctiva, oropharynx clear. NECK: Supple without lymphadenopathy. No stiffness or restricted ROM. HEART: Normal rate and regular rhythm, normal S1/S1, no m/r/g LUNGS: CTAB, moving air well. No crackles or wheezes are heard. ABDOMEN: Soft, diffused abdominal pain, nondistended with good bowel sounds heard. BACK: No midline C/T/L spine pain or deformity, No CVAT, no obvious deformity. EXTREMITIES: Without cyanosis, clubbing or edema. MUSCULOSKELETAL: FROM of all major joints, no chest tenderness NEUROLOGICAL: Grossly nonfocal. Alert and oriented, moving all 4 extremities. CN not formally tested but appear grossly intact. Skin: Warm and dry without any rash. Course Quality Measures none Orders Category Date Time Status Internal Grinder Set Up Operator Q4H START 00 Care 03/11/24 02:04 Completed EKG (ED ONLY) *Do not use* NOW Care 03/11/24 02:03 Completed Insert IV NOW Care 03/11/24 02:04 Completed EKG (ED Only) Stat Exams 03/11/24 02:03 Draft XR chest 2V Stat Exams 03/11/24 02:03 Completed B-Type Natriuretic Peptide Stat Lab 03/11/24 02:36 Completed CBC Stat Lab 03/11/24 02:36 Completed Comprehensive Metabolic Panel Stat Lab 03/11/24 02:36 Completed Lipase Stat Lab 03/11/24 02:36 Completed Magnesium Stat Lab 03/11/24 02:36 Completed Partial Thromboplastin Time Stat Lab 03/11/24 02:36 Completed Prothrombin Time with INR Stat Lab 03/11/24 02:36 Completed Troponin I Stat Lab 03/11/24 02:36 Completed Urinalysis Stat Lab 03/11/24 04:14 Completed DiphenhydrAMINE INJ [Benadryl Inj] Med 03/11/24 07:35 Discontinued 25 mg IV X1 ONE DiphenhydrAMINE INJ [Benadryl Inj] Med 03/11/24 09:33 Discontinued 25 mg IV X1 ONE Lidocaine 2% Viscous [Xylocaine 2% Viscous] Med 03/11/24 07:35 Discontinued 15 ml PO X1 ONE Metoclopramide Inj [Reglan Inj] Med 03/11/24 07:35 Discontinued 10 mg IVP X1 ONE mg Hyd/Al Hyd/Segundo Susp [Maalox Susp] Med 03/11/24 07:35 Discontinued 30 ml PO X1 ONE Reevaluation(s) Reevaluation #1: Patient reports feeling improved after Reglan although is still hiccuping. Will order Benadryl and reassess. Time: 09:45 Reevaluation #2: Patient reports improvement with Benadryl and tolerated the pudding. We reviewed all the results, analysis, and treatment plans. Patient is amenable to discharge. Strict return precautions were outlined. Patient was discharged in stable condition. Patient additionally stated his PD specialist is aware of the hiccups and started the patient on chlorpromazine. Time: 10:17 Vital Signs Vital signs: Vital Signs Temperature 97.6 F 03/11/24 01:57 Pulse Rate 118 H 03/11/24 01:57 Respiratory Rate 18 03/11/24 01:57 Blood Pressure 86/58 L 03/11/24 01:57 Pulse Oximetry (%) 98 03/11/24 01:57 Oxygen Delivery Method Room Air 03/11/24 01:57 Pulse ox is 98% on room air which is adequate. Nausea/Vomiting/Diarrhea MDM Narrative MDM Narrative:: Beverly Phillip am scribing for and in the presence of Dr. Allen. Patient data External records reviewed:: [facility] previous records (I reviewed admission from 02/20/2024 through ) Clinical information provided by:: patient and spouse ( adds to hpi ) Social determinants that could affect healthcare access:: none Patient has the following chronic illnesses:: ESRD on peritoneal dialysis although in the last 2 weeks undergoing hemodialysis, hypertension, diabetes, hyperlipidemia How is presenting disease/condition affected by chronic disease/condition?: exacerbated by Evaluation data The following diagnostics were reviewed and interpreted by me:: lab results and EKG tracing(s) (Sinus tachycardia, rate 104, normal axis, normal intervals, no acute ST or T-wave changes, no STEMI. ) Lab and/or radiology exams considered but not ordered:: None Interpretation Summary: Ordering Physician: Mirella RICO)Vito Date of Service: 03/11/24 Procedure(s): XR chest 2V Accession Number(s): [id number] cc: Cheko Geller MD; Mirella Montoya (E D TECH),Vito MCKEON; Mao Membreno MD~ Examination: PA lateral chest 2 views TECHNIQUE: Upright PA and lateral chest 2 views Presented time: March 11, 2024 at 0210 hours INDICATIONS: Chest pain today. FINDINGS: Normal heart size No lobar pneumonia or pulmonary edema Minor blunting of the costophrenic angles Right internal jugular dialysis catheter tip satisfactory position IMPRESSION: No pneumonia or pulmonary edema Dictated By:Cheko Geller MD Signed By:<Electronically signed by Cheko Geller MD in OV>03/11/24 0749 Medications / Prescriptions Medications / Prescriptions considered but not ordered:: None Medication administrations:: Medication Administration History Discontinued Medications Al Hydrox/Mg Hydrox/Simethicone (Mg Hyd/Al Hyd/Segundo (Maalox Reg) Susp 30 Ml Udc) 30 ml PO X1 ONE Stop: 03/11/24 07:36 Last Admin: 03/11/24 08:09 Dose: 30 ml Documented By: Diphenhydramine HCl (Diphenhydramine Inj 50 Mg/Ml Vial) 25 mg IV X1 ONE Stop: 03/11/24 07:36 Last Admin: 03/11/24 08:08 Dose: 25 mg Documented By: Diphenhydramine HCl (Diphenhydramine Inj 50 Mg/Ml Vial) 25 mg IV X1 ONE Stop: 03/11/24 09:34 Last Admin: 03/11/24 10:05 Dose: 25 mg Documented By: Lidocaine HCl (Lidocaine Viscous 2% 15 Ml Udc) 15 ml PO X1 ONE Stop: 03/11/24 07:36 Last Admin: 03/11/24 08:09 Dose: 15 ml Documented By: Metoclopramide HCl (Metoclopramide Inj 5 Mg/Ml Vial 2 Ml) 10 mg IVP X1 ONE; Protocol Stop: 03/11/24 07:36 Last Admin: 03/11/24 08:04 Dose: 10 mg Documented By: GM See above Consultations Consultation(s) initiated? (list below): No Diagnosis Nausea Differential Diagnosis: food poisoning, gastroenteritis, clostridium difficile infection, drug-induced nausea and vomiting, dehydration and other (Gastroparesis ) Most likely diagnosis given after review of the tests above:: Increased nausea and vomiting Admission Indicated Admission indicated?: not indicated Admission Request Was there a request for admission?: No Disposition Plan Disposition Plan: Discharge Discharge Attestation Discharge Attestation: The patient and all family members were given an opportunity to ask questions and understood the discharge instructions. Discharge instructions specifically effects, indications for sooner follow up or return to the emergency department, and the expected course of current diagnosis. Patient condition: Stable Discharge Plan Plan Patient Disposition: HOME (Self Care) Prescriptions/Referrals Prescriptions/Med Rec: New metoclopramide HCl [Reglan] 10 mg tablet 10 mg PO BID PRN (Reason: nausea and vomiting) Qty: 6 0RF No Action nifedipine 60 mg tablet extended release 60 mg PO QDAY Qty: 30 0RF atorvastatin 20 mg tablet 20 mg PO QPM Patient Comments: TAKE 1 TABLET BY MOUTH EVERYDAY AT BEDTIME Nephro-Charly 0.8 mg tablet 1 tab PO QDAY Patient Comments: TAKE 1 TABLET BY MOUTH EVERY DAY pantoprazole 20 mg tablet,delayed release (DR/EC) 20 mg PO DAILY Patient Comments: TAKE 1 TABLET BY MOUTH ONCE DAILY AM sodium bicarbonate 650 mg tablet 325 mg PO DAILY Patient Comments: TAKE 1 TABLET BY MOUTH ONCE DAILY allopurinol 300 mg tablet 300 mg PO QDAY Patient Comments: TAKE 1 TABLET BY MOUTH ONCE DAILY ergocalciferol (vitamin D2) 1,250 mcg (50,000 unit) capsule 1,250 mcg PO QWEEK Patient Comments: TAKE 1 CAPSULE BY MOUTH ONCE A WEEK Ozempic 0.25 mg or 0.5 mg (2 mg/3 mL) pen injector 0.5 mg SUBCUT QWEEK Patient Comments: INJECT 0.25 MG SUBCUTANEOUSLY ONCE A WEEK FOR 4 WEEKS THEN 0.5MG ONCE A WEEK insulin degludec [Tresiba FlexTouch U-100] 100 unit/mL (3 mL) insulin pen 25 unit subcut QPM Qty: 15 3RF (DME) pen needle, diabetic [Pen Needle] 29 gauge x 1/2 needle See Rx Instructions .Route Qty: 100 3RF Rx Instructions: As directed (DME) FreeStyle Wei 3 [place] Misc See Rx Instructions .Route Qty: 1 0RF Rx Instructions: As directed (DME) FreeStyle Wei 3 Sensor Device See Rx Instructions .Route Qty: 2 3RF Rx Instructions: As directed Ozempic 0.25 mg or 0.5 mg (2 mg/3 mL) pen injector 0.25 mg subcut QWEEK Qty: 3 3RF Rx Instructions: for 4 weeks benazepril 10 mg tablet 10 mg PO QDAY Qty: 30 3RF carvedilol 12.5 mg tablet 25 mg PO BID Rx Instructions: must administer with a meal/food insulin degludec [Tresiba FlexTouch U-200] 200 unit/mL (3 mL) Insulin Pen 25 unit SUBCUT BID Referrals: Mao Membreno MD [Primary Care Provider] - In 1 week Problem List Clinical Impression: Increased nausea and vomiting Patient/Caregiver Discharge Instructions Education Materials: ED Diet for Vomiting or ..., ED Vomiting (Adult), ED Diabetic Gastroparesis Additional Instructions: Follow-up with your peritoneal dialysis specialist as scheduled this afternoon. You can return to the emergency department sooner symptoms worsen or if you notice any new, concerning issues Print Language: Indonesian Stand Alone Forms: Jennifer Award Info., Work/School Release, Patient Portal Info Letter
== END 2024-03-11 10:47 | disposition home or self-care (01) ==
PROVIDERS: Emergency Provider Emergency Medicine; PCP Internal Medicine
DX: R11.2 Nausea with vomiting, unspecified (principal); E11.22 Type 2 diabetes mellitus with diabetic chronic kidney disease; I12.0 Hypertensive chronic kidney disease with stage 5 chronic kidney disease or end stage renal disease; N18.6 End stage renal disease; Z99.2 Dependence on renal dialysis; E78.5 Hyperlipidemia, unspecified
CPT/HCPCS: 36415; 71046; 80053; 81001; 83690; 83735; 83880; 84484; 85025; 85610; 85730; 93005; 99284; J1200; J2765; J3490; A9270

== ENCOUNTER 2024-06-20 06:43 | Day surgery (SDC) | payer BC, OTHER, SELFPAY ==
[2024-06-18 17:39] VITALS: BMI 25.0
--- NOTE | 2024-06-19 07:00 | EKG_ITS ---
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
[2024-06-19 11:39] LABS: Basophils % (Auto) 1 % (0-2.5); Eosinophils # (Auto) 0.5 Thou/mm3 (0.0-0.5); Eosinophils % (Auto) 10 % (0-10); Hemoglobin 15.1 g/dL (13.5-16.0); Immature Granulocytes % (Auto) 0 % (0-0); Immature Granulocytes Auto 0.01 Thou/mm3 (0.00-0.00); Lymphocytes % (Auto) 41 % (10-50); Mean Corpuscular HGB Conc 32.1 g/dl (31.0-37.0); Mean Corpuscular Hemoglobin 27.4 pg (25.0-35.0); Mean Corpuscular Volume 85 fL (80-100); Monocytes # (Auto) 0.3 Thou/mm3 (0.0-0.8); Monocytes % (Auto) 5 % (0-12); Neutrophils # (Auto) 2.1 Thou/mm3 (1.8-7.7); Neutrophils % (Auto) 43 % (37-80); Nucleated Red Blood Cell % 0 /100 WBC (0); Platelet Count 216 Thou/mm3 (140-440); RDW Standard Deviation 46.9 fL (35.1-43.9); Red Blood Count 5.51 Miln/mm3 (4.50-5.90); White Blood Count 4.9 Thou/mm3 (3.8-10.6)
[2024-06-19 11:48] LABS: Partial Thromboplastin Time 26.9 Seconds (22.0-36.0); Prothrombin Time 11.1 Seconds (9.0-12.2)
[2024-06-19 11:58] LABS: Anion Gap 11 (7-16); BUN/Creatinine Ratio 9 Ratio (12-20); Blood Urea Nitrogen 50 mg/dL (9-23); Calcium 8.9 mg/dL (8.3-10.6); Chloride 104 mMol/L (98-107); Creatinine (Component) 5.8 mg/dL (0.6-1.3); Estimated Creatinine Clearance 16.5 mL/min (>60); Glucose 193 mg/dL (74-106); Osmolality,Calculated 299 (275-295); Potassium 5.6 mMol/L (3.4-5.1); Sodium 141 mMol/L (136-145); eGFR 12 See Note
[2024-06-20] VITALS (12 sets, daily range): BP systolic 102–125; BP diastolic 82–90; PULSE 82–96; RESP 12–20; TEMP 36.6–37.1; O2SAT 96–100
[2024-06-20] MEDS: SOD POLYSTYRENE SULFON SUSP 15 GM/60 ML BTL 60 GM PO (08:16)
[2024-06-20 12:30] LABS: O2 Saturation (Cath Lab) 92 % (91-98); Puncture Site Aortic
--- NOTE | 2024-06-20 12:30 | ESOP_ITS ---
Cardiac Cath Procedure Procedure Name Date of procedure: 06/20/2024 GAME FARM HELPER: Jem Short MD PROCEDURE PERFORMED: 1. Left and right heart cardiac catheterization including right, left coronary angiograms and left ventriculogram 2. Ultrasound-guided access of the right radial artery 3. Conscious sedation for 30 minutes. Procedure Narrative HISTORY AND INDICATIONS: A 38-year-old male with past medical history significant for diabetes mellitus since 2012, on insulin for the past 2 to3 years, hypertension since 2021, ESRD on peritoneal dialysis since 09/2023, and hyperlipidemia. Patient is planned to be on renal transplant list as he is on ESRD. Patient was recommended to have a coronary angiogram in preparation for renal transplant. Patient was brought in for an elective left and right cardiac catheterization. Patient was explained the risk benefits and alternatives of performing a left heart cardiac catheterization including the risk of bleeding, heart attack, stroke and in detail and the agreeable for the procedure. Consent signed, placed in the chart and H&P updated. DESCRIPTION OF PROCEDURE: The patient was brought to the cardiac catheterization lab and all asceptic precautions were followed. Patient was given 1 Mg of Versed and 50 mcg of fentanyl for moderate conscious sedation. 2 mL of lidocaine was given in the right wrist. The right radial artery was accessed via the ultrasound guidance as well as micropuncture technique. A 6 Welsh glide sheath was introduced. We then used a 5 Welsh TIG 4 catheter to perform the left and right coronary angiograms as well as a left ventriculogram which showed the following findings. 1. Left ventricular ejection fraction was normal at 60 to 65% without any regional wall motion abnormalities. LVEDP was eleavted at 45 mmHg. There was no significant transvalvular aortic gradient. 2. Right dominant circulation 3. Left main artery is a large-caliber vessel without any significant stenosis. 4. LAD is a large sized artery with a medium size diagonal and without show any significant disease. 5. LCx is a large sized artery with medium OM1 and small OM2 without any significant disease. 6. RCA is a large artery with medium RPDA and RPL without any significant disease. Serial measurements of right atrium, right ventricle, pulmonary artery and pulmonary capillary wedge were taken severely with normal respiration as well as at end expiration as noted below. We then used a 6 Welsh TIG 4 catheter to perform the left and right coronary angiogram as well as a left ventriculogram which showed the following findings. RHC findings: Mean right atrial pressure was 2 mmHg. Right atrial pressure was 2/3 mmHg. Pulmonary artery pressure was 14/8 mmHg with a mean of 11 mmHg. Mean pulmonary capillary wedge pressure was 7 mmHg. TPG was 3 mmHg Pulmonary artery PA saturation was 71.7%.? Arterial saturation was 91.8% on room air. Cardiac output was 5.9 L/min and cardiac index was normal at 3.2 L/min/m? A radial band was used to achieve the hemostasis of the right radial artery access. Patient will be monitored in the cardiac learning engineer for the next 2 to 3 hours and will be discharged home / telemetry later today if hemodynamically stable. Complications: None Specimens: None Blood loss: Estimated 5-10 ml Summary/findings: 1. LHC showed normal coronaries without any angiographically significant obstruction and few luminal irregularities. 2. LVEF is normal at 60-65%. 3. LVEDP at 8 mm hg. No significant transvalvular aortic gradient. 4. Right heart pressures with mean RA of 3 mm hg, mean PA of 11 mmhg and mean PCWP at 7 mm hg. 5. Normal Cardiac ouput and cardiac index Recommendations: 1. Recommend aggressive risk factor modification and aggressive medical treatment 2. Recommended no lifting more than 5 pounds for next 7-10 days and follow up with me in the office. Jem Short MD Interventional Cardiology.
[2024-06-20 12:31] LABS: O2 Saturation (Cath Lab) 72 % (91-98); Puncture Site Pulmonary Artery
--- NOTE | 2024-06-20 14:08 | PC.NURSE ---
1000 patient is awake, alert, breathing unlabored, s/p LHC by Dr. Short, TR band to right wrist, no bleeding or hematoma noted. Report received from Devi HARRIS, patient to recover for 3 hours and go home 1 hr post TR band removal. 1200 TR band removed, no bleeding or hematoma noted 1320 patient is awake, alert, breathing unlabored, dressing to right wrist dry with no bleeding or hematoma, patient able to tolerate breakfast and lunch tray with no nausea or vomiting, meets discharge criteria, discharge instructions given to and patient, patient discharged home in wheelchair with all belongings.
== END 2024-06-20 13:20 | disposition home or self-care (01) ==
PROVIDERS: PCP Internal Medicine; Referring Provider Internal Medicine Cardiovascular Disease; Visit Provider Internal Medicine Cardiovascular Disease
PROC: (CPT 93460; principal; 2024-06-20 07:30)
DX: I25.10 Atherosclerotic heart disease of native coronary artery without angina pectoris (principal); Z01.810 Encounter for preprocedural cardiovascular examination; E11.22 Type 2 diabetes mellitus with diabetic chronic kidney disease; N18.6 End stage renal disease; Z99.2 Dependence on renal dialysis; E78.5 Hyperlipidemia, unspecified; I13.11 Hypertensive heart and chronic kidney disease without heart failure, with stage 5 chronic kidney disease, or end stage renal disease
CPT/HCPCS: 93460; 36415; 80048; 82810; 85025; 85610; 85730; 93005; 99152; 99153; A4649; C1769; C1887; C1894; J0153; J0171; J0282; J0461; J1643; J2250; J2310; J2371; J3010; J3490; Q9967; A9270

== ENCOUNTER 2024-09-30 17:10 | Emergency (ER) | payer BC, OTHER, SELFPAY ==
[2024-09-30 17:10] VITALS: BMI 25.0
[2024-09-30 17:27] VITALS: BP 129/86; PULSE 87; RESP 18; TEMP 36.6; O2SAT 99
--- NOTE | 2024-09-30 17:50 | XR_ITS ---
Examination: PA lateral chest 2 views TECHNIQUE: Upright PA lateral chest 2 views Date and time: September 30, 2024, 1800 hours, compared to March 11, 2024 INDICATIONS: Chest pain today. FINDINGS: Normal heart size Right internal jugular dialysis catheter tip satisfactory position. No pneumonia or pulmonary edema IMPRESSION: No active disease.
--- NOTE | 2024-09-30 17:51 | PD.EDRME ---
Rapid Medical Screening Exam E Arrival date/time: 09/30/24 17:10 39-year-old male with a history of hyperlipidemia, end-stage renal disease, presents to the emergency room with a chief complaint of a bleeding temporary dialysis catheter. This catheter was placed today in an outpatient clinic in [place]. The site is not warm to the touch and bleeding and the patient was instructed to come to the emergency room. I have greeted and performed a focused initial assessment of this patient. A comprehensive ED assessment and evaluation of the patient, analysis of all test results, and completion of the medical decision making process will be conducted by additional ED providers. Chief Complaint: General Adult/Misc Complain Vital signs: Vital Signs Temperature 98 F 09/30/24 17:27 Pulse Rate 87 09/30/24 17:27 Respiratory Rate 18 09/30/24 17:27 Blood Pressure 129/86 H 09/30/24 17:27 Pulse Oximetry (%) 99 09/30/24 17:27 Oxygen Delivery Method Room Air 09/30/24 17:27 Vital signs reviewed by provider: Yes
[2024-09-30 18:18] LABS: Basophils # (Auto) 0.1 Thou/mm3 (0.0-0.2); Basophils % (Auto) 1 % (0-2.5); Eosinophils # (Auto) 0.4 Thou/mm3 (0.0-0.5); Eosinophils % (Auto) 5 % (0-10); Hematocrit 35.2 % (41.0-53.0); Hemoglobin 11.6 g/dL (13.5-16.0); Immature Granulocytes Auto 0.04 Thou/mm3 (0.00-0.00); Lymphocytes # (Auto) 3.6 Thou/mm3 (1.0-4.8); Lymphocytes % (Auto) 46 % (10-50); Mean Corpuscular HGB Conc 33.0 g/dl (31.0-37.0); Mean Corpuscular Hemoglobin 28.9 pg (25.0-35.0); Mean Corpuscular Volume 88 fL (80-100); Monocytes # (Auto) 0.4 Thou/mm3 (0.0-0.8); Monocytes % (Auto) 5 % (0-12); Neutrophils # (Auto) 3.3 Thou/mm3 (1.8-7.7); Neutrophils % (Auto) 42 % (37-80); Nucleated Red Blood Cell # 0.00 Thou/mm3 (0.00-0.00); Nucleated Red Blood Cell % 0 /100 WBC (0); Platelet Count 245 Thou/mm3 (140-440); RDW Standard Deviation 49.8 fL (35.1-43.9); Red Blood Count 4.01 Miln/mm3 (4.50-5.90); White Blood Count 7.8 Thou/mm3 (3.8-10.6)
[2024-09-30 18:32] LABS: Lactate (Lactic Acid) 0.9 mMol/L (0.4-2.0)
[2024-09-30 18:49] LABS: Alanine Aminotransferase 20 U/L (10-49); Albumin, Serum 4.7 gm/dL (3.5-5.0); Albumin/Globulin Ratio 1.5 (1.2-2.2); Alkaline Phosphatase 61 U/L (46-116); Anion Gap 11 (7-16); Aspartate Amino Transferase 21 U/L (0-34); BUN/Creatinine Ratio 7 Ratio (12-20); Bilirubin,Total 0.5 mg/dL (0.3-1.2); Blood Urea Nitrogen 41 mg/dL (9-23); Calcium 9.6 mg/dL (8.3-10.6); Calcium (Corrected) 9.6 mg/dL (8.5-10.1); Carbon Dioxide 25.8 mMol/L (20.0-31.0); Chloride 104 mMol/L (98-107); Creatinine (Component) 6.3 mg/dL (0.6-1.3); Estimated Creatinine Clearance 15.1 mL/min (>60); Globulin 3.1 gm/dL (2.3-3.5); Glucose 126 mg/dL (74-106); Osmolality,Calculated 293 (275-295); Potassium 4.0 mMol/L (3.4-5.1); Procalcitonin 0.13 ng/ml (0.0-0.49); Sodium 141 mMol/L (136-145); Total Protein 7.8 gm/dL (5.7-8.2); eGFR 11 See Note
[2024-09-30 23:54] VITALS: BP 128/89; PULSE 74; RESP 18; TEMP 36.8; O2SAT 99
--- NOTE | 2024-10-01 02:36 | PD.EDADULT ---
ED General RME/HPI General Chief complaint: General Adult/Misc Complain Stated complaint: VAS CATH BLEEDING Time Seen by Provider: 09/30/24 23:57 Arrival date/time: 09/30/24 17:10 RME / HPI RME / HPI narrative: 09/30/24 17:10 39-year-old male with a history of hyperlipidemia, end-stage renal disease, presents to the emergency room with a chief complaint of a bleeding temporary dialysis catheter. This catheter was placed today in an outpatient clinic in [place]. The site is not warm to the touch and bleeding and the patient was instructed to come to the emergency room. I have greeted and performed a focused initial assessment of this patient. A comprehensive ED assessment and evaluation of the patient, analysis of all test results, and completion of the medical decision making process will be conducted by additional ED providers. Dr. 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 No dizziness, lightheadedness, or near syncope. No chest pain. Related Data Home Medications ?Medication ?Instructions ?Recorded ?Confirmed atorvastatin 20 mg tablet 20 mg PO QPM 08/25/21 06/20/24 vitamin B complex-vitamin C-folic 1 tab PO QDAY 08/25/21 06/20/24 acid 0.8 mg tablet (Nephro-Charly) semaglutide 0.25 mg or 0.5 mg (2 0.5 mg subcut QWEEK 08/04/23 06/20/24 mg/3 mL) subcutaneous pen injector (Ozempic) pantoprazole 20 mg tablet,delayed 20 mg PO DAILY 12/08/23 06/20/24 release sodium bicarbonate 650 mg tablet 325 mg PO DAILY 12/08/23 06/20/24 carvedilol 12.5 mg tablet 25 mg PO BID 02/21/24 06/20/24 insulin degludec 200 unit/mL (3 25 unit subcut BID 02/21/24 06/20/24 mL) subcutaneous pen (Tresiba FlexTouch U-200 insulin) aspirin 81 mg capsule 81 mg PO QDAY 06/20/24 06/20/24 Previous Rx's ?Medication ?Instructions ?Recorded blood-glucose sensor (FreeStyle #2 ea 08/11/23 Wei 3 Sensor device) blood-glucose,cut order hand,cont #1 08/11/23 (FreeStyle Wei 3 [place]) pen needle, diabetic 29 gauge x #100 08/11/2302/07 (Pen Needle) Allergies Allergy/AdvReac Type Severity Reaction Status Date / Time No Known Allergies Allergy Verified 09/30/24 17:12 Review of Systems Review of Systems Systems Reviewed: All systems reviewed, normal except as documented Past Medical History Past Medical History NEUROLOGIC: Positive Migraine; Negative Neurological Disorders or Seizures CARDIAC: Positive Cardiac Disorders and Hypertension; Negative Congestive Heart Failure RESPIRATORY: Positive Asthma and Pneumonia; Negative Chronic Obstructive Pulmonary Disease (COPD) GASTROINTESTINAL: Negative Gastrointestinal Disorders GENITOURINARY: Positive Renal Disease and Dialysis (MWF); Negative Genitourinary Disorders MUSCULOSKELETAL: Negative Musculoskeletal Disorders ENDOCRINE: Positive Endocrine Disorders and Diabetes Mellitus Type 2; Negative Diabetes Mellitus Type 1 HEMATOLOGIC: Negative Blood Disorders PSYCHO/SOCIAL: Positive Depression and Anxiety OTHER HISTORY: Positive Chicken Pox; Negative Hospitalization, Autoimmune Disease, Down Syndrome, Shingles, Falls, Blood Transfusions, Blood Transfusion Reaction or Anesthesia Reactions Family History FAMILY HISTORY: Positive Family Respiratory Disorders, Family Cardiac Disorders and Family Cancer; Negative Family Psychiatric Problems or Family Gastrointestinal Problems Surgical History SURGICAL: Positive Abdominal Surgery Social History SMOKING STATUS: Never smoker SECOND HAND EXPOSURE: No SUBSTANCE USE: does not use ED Exam Narrative Physical exam: GENERAL APPEARANCE: alert and oriented x 4, well-developed, well-nourished, nontoxic, no acute distress VITALS: All vitals were reviewed and the pulse ox is 99% on room air, which is normal according to my interpretation. HEENT: Normocephalic, atraumatic; pupils equal, round, reactive to light; EOMI; mucous membranes pink, moist; oropharynx clear NECK: Supple LUNGS: CTABL; no wheezes, no rales, no rhonchi HEART: Regular rate, regular rhythm; normal S1, S2; no murmurs CHEST: dressing for vas cath is nearly completely saturated, no active oozing, no crepitus on palpation of the right subclavian region ABDOMEN: non distended; soft, no tenderness BACK: no CVA tenderness EXTREMITIES: atraumatic; no edema NEUROLOGIC: awake; alert and oriented x4; cranial nerves II-XII grossly intact; no focal sensory or motor deficits PSYCHIATRIC: appropriate mood and affect SKIN: warm, dry, normal color; no rashes Course Quality Measures none Orders Category Date Time Status XR chest 2V Stat Exams 09/30/24 17:50 Completed Blood Culture (Lab) Stat Lab 09/30/24 18:05 Results CBC Stat Lab 09/30/24 18:00 Completed CMP [Comprehensive Metabolic Panel] Stat Lab 09/30/24 18:00 Completed Lactic Acid [Lactate (Lactic Acid)] Stat Lab 09/30/24 18:00 Completed Procalcitonin Stat Lab 09/30/24 18:00 Completed Vital Signs Vital signs: Vital Signs Temperature 98 F 09/30/24 17:27 Pulse Rate 87 09/30/24 17:27 Respiratory Rate 18 09/30/24 17:27 Blood Pressure 129/86 H 09/30/24 17:27 Pulse Oximetry (%) 99 09/30/24 17:27 Oxygen Delivery Method Room Air 09/30/24 17:27 Discharge Plan Plan Patient Disposition: HOME (Self Care) Prescriptions/Referrals Prescriptions/Med Rec: No Action atorvastatin 20 mg tablet 20 mg PO QPM Patient Comments: TAKE 1 TABLET BY MOUTH EVERYDAY AT BEDTIME Nephro-Charly 0.8 mg tablet 1 tab PO QDAY Patient Comments: TAKE 1 TABLET BY MOUTH EVERY DAY pantoprazole 20 mg tablet,delayed release (DR/EC) 20 mg PO DAILY Patient Comments: TAKE 1 TABLET BY MOUTH ONCE DAILY AM sodium bicarbonate 650 mg tablet 325 mg PO DAILY Patient Comments: TAKE 1 TABLET BY MOUTH ONCE DAILY aspirin 81 mg capsule 81 mg PO QDAY Ozempic 0.25 mg or 0.5 mg (2 mg/3 mL) pen injector 0.5 mg SUBCUT QWEEK Patient Comments: INJECT 0.25 MG SUBCUTANEOUSLY ONCE A WEEK FOR 4 WEEKS THEN 0.5MG ONCE A WEEK (DME) pen needle, diabetic [Pen Needle] 29 gauge x 1/2 needle See Rx Instructions .Route Qty: 100 3RF Rx Instructions: As directed (DME) FreeStyle Wei 3 [place] Misc See Rx Instructions .Route Qty: 1 0RF Rx Instructions: As directed (DME) FreeStyle Wei 3 Sensor Device See Rx Instructions .Route Qty: 2 3RF Rx Instructions: As directed carvedilol 12.5 mg tablet 25 mg PO BID Rx Instructions: must administer with a meal/food insulin degludec [Tresiba FlexTouch U-200] 200 unit/mL (3 mL) Insulin Pen 25 unit SUBCUT BID Referrals: Mao Membreno MD [Primary Care Provider] - In 1 week Problem List Clinical Impression: Postoperative hemorrhage Patient/Caregiver Discharge Instructions Discharge Activity: activity as tolerated Additional Instructions: Maintain dressing for 72 hours. Follow-up with rn placement for dialysis this a.m. as anticipated. Return if worsening. Print Language: [place] Stand Alone Forms: Jennifer Award Info., Work/School Release, Patient Portal Info Letter MDM Narrative MDM hospital course: Scribe Attestation: 10/01/24 - I, Idania York am scribing for and in the presence of Dr. Poe. 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 No dizziness, lightheadedness, or near syncope. Please see PE findings. Lab markers demonstrate chronic anemia Hgv 11.6, no thrombocytopenia. Chemistries show normal K 4.0, BUN 41/Creatinine 6.2/eGFR 11 (baseline). CXR without evidence of pneumothorax, pneumonia, or pulmonary edema. Dressing was changed and surgicel was applied with cessation of slight oozing. After period of observation, patient is considered stable for discharge and is to follow-up with his rn placement as scheduled today for dialysis. Dx: postsurgical hemorrhage Clinical Information Provided by patient Medical Records Reviewed [facility] (Per chart review, patient was seen and admitted here on 02/20/24 for dialysis catheter clot/failure.) Meds/Rx Considered, not Ordered None Labs/Rad/Tests considered, not Ordered None Chronic Illness/Social Conditions Add or document further as needed: Hx ESRD, DM, HTN, HLD EKG EKG not done Lab Interpretation Labs: interpreted by me Imaging Imaging interpretation: interpreted by id Radiology reports / interpretation(s): [facility] Report Signed Patient: DEREK KATZ [facility]. Record#: [id number] Birthdate: 1985 Age/Sex: 39 / M Location: [facility] Attending Dr: Ordering Physician: Grady Akins Date of Service: 09/30/24 Procedure(s): XR chest 2V Accession Number(s): [id number] cc: Grady Akins; Cheko Geller MD; Mao Membreno MD~ Examination: PA lateral chest 2 views TECHNIQUE: Upright PA lateral chest 2 views Date and time: September 30, 2024, 1800 hours, compared to March 11, 2024 INDICATIONS: Chest pain today. FINDINGS: Normal heart size Right internal jugular dialysis catheter tip satisfactory position. No pneumonia or pulmonary edema IMPRESSION: No active disease. Dictated By: Cheko Geller MD Signed By: <Electronically signed by Cheko Geller MD in OV> 09/30/24 2534 Medication Administration(s) none Diagnosis Differential diagnosis: clogged vas catheter, dialysis cath malfunction, dislodgement of vas cath Most likely dx, and/or detailed dx discussion: see clinical impression below Dispositon Disposition: Discharge Home
[2024-10-01 03:59] VITALS: BP 136/82; PULSE 80; RESP 16; O2SAT 98
== END 2024-10-01 04:00 | disposition home or self-care (01) ==
PROVIDERS: Nurse Practitioner Family; Emergency Provider Emergency Medicine; PCP Internal Medicine
DX: T82.838A Hemorrhage due to vascular prosthetic devices, implants and grafts, initial encounter (principal); N18.6 End stage renal disease; E78.5 Hyperlipidemia, unspecified
CPT/HCPCS: 36415; 71046; 80053; 83605; 84145; 85025; 87040; 99283

== ENCOUNTER → 2024-10-01 | Outpatient (CLI) | payer BC, OTHER, SELFPAY ==
--- NOTE | 2024-10-01 10:30 | XR_ITS ---
Examination: MRI brain without intravenous contrast. Date and time of exam: October 01, 2024, 1127 hours INDICATIONS: Seizure history, chronic, preop kidney transplant, history hypertension diabetes Technique: Multiple axial and sagittal images of the brain obtained. Siemens high-resolution 1.5 Naida short bore scanners utilized. Sagittal sections, T1-weighted, TR 500, TE 14, are performed. Axial sections proton-density and T2-weighted have been obtained. Inversion recovery axial images, TR 9, 260, TE 111, TI 2500. Diffusion weighted images, axial sections, TR 4800, TE 128, B value 1000 Axial sections, ADC map, TR 4800, TE 128 Findings: Enlargement of the sella turcica is not present. The optic chiasm and infundibular are not remarkable. Prepontine and interpeduncular cisterns are not enlarged. There is no localized enlargement of the medulla or archana. Fourth ventricle and cerebellar tonsils appear normal in position. No subacute area of hemorrhage density is seen. Mass in the cerebellopontine angle region is not evident. Globes symmetrical. Orbital musculature including medial lateral rectus muscles do not exhibit abnormality. Diffusion-weighted images demonstrate no focus of restricted diffusion. Increased white matter signal not seen Mass effect upon the ventricular system is not identified. Impression: Negative for acute hemorrhage mass effect or midline shift. No acute infarct No MR findings diagnostic for demyelinating disease
== END | disposition home or self-care (01) ==
LOC: SMRI 10:13
PROVIDERS: PCP Internal Medicine; Referring Provider Psychiatry & Neurology Neurology; Visit Provider Psychiatry & Neurology Neurology
DX: R56.9 Unspecified convulsions (principal); Z94.0 Kidney transplant status; I10 Essential (primary) hypertension; E11.8 Type 2 diabetes mellitus with unspecified complications
CPT/HCPCS: 70551